=== PATIENT | female | born 1970 | race Caucasian/White ===

== ENCOUNTER 2016-12-29 07:56 | Emergency (ER) | payer MEDICAID ==
[~2016-12-29] VITALS: Ht 152.4 cm; Wt 54.4 kg
[~2016-12-29 07:56] MED LIST: ADVIL200 MG PO; AVPAK AZITHROM250 MG PO; BUSPAR 10MG TAB10 MG PO; ETODOLAC200 MG PO; HYDROCODONE-APA1 TA1 PO; HYDROCODONE/ACE1 TA5 PO; KEFLEX 500MG.500 MG PO; NAPROSYN 500MG500 MG PO; NEURONTIN100 MG OR; NOMEDS; PREDNISONE 20MG20 MG PO; ROBAXIN-750750 MG PO; TESSALON PERLE100 MG PO; TORADOL10 M2 PO; TYLENOL MIGRAINE OR; ULTRAM50 MG PO; VOLTAREN75 MG PO; ZITHROMAX Z-PA250 M1 PO; ZOFRAN ODT4 MG PO
[2016-12-29] MEDS ORDERED: INDERAL 20MG. T20 MG PO (08:06)
--- NOTE | 2016-12-29 08:09 | Emergency Room Report ---
History of Present Illness Time Seen by MD Peña Presenting Problem in Triage Pt arrived:Walked Presenting Problem:PT REPORTS R BACK PAIN IN POSTERIOR RIB AREA RADIATING TO R LOWER BACK AND RADIATING AROUND TO R ABD PAIN. PT REPORTS PAIN BEGAN YESTERDAY MORNING. DENIES ANY INJURY, DENIES URINARY SYMPTOMS. 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 N Clinical Suspician of Infection? N Mental Status: 1 - Regular (Normal Baseline) Sepsis Risk:Low Sepsis Risk Have you (or family members/close friends) recently traveled outside the [place]? N If Yes, where/when: Have you had exposure to infectious disease within the past month? N TB? Other? Specify: Patient states yesterday morning she started with bilateral flank pain to the nurse she stated it was worse on the RIGHT side to me she said it was worse on the LEFT side she states she has bilateral flank pain radiating around to the mid abdomen on each side. moderate in severity she states she has nausea associated with that she denies fevers or chills. She states is a new pain she denies any history of kidney stone. She is pacing at bedside during the interview she states she can't find a comfortable position. ALLERGIES Coded Allergies: No Known Allergies (05/21/16) Home Medications Reported Medications Gabapentin (Neurontin) 100 MG OR TID Buspirone Hcl (Buspar 10MG) 10 MG PO DAILY #60 Propranolol Hcl (Inderal 20MG. Tablet) 20 MG PO DAILY #30 History Medical History General CAD? No Angina: No [place]: No Hypertension? No Hyperlipidemia? No CHF? No DVT? No PE? No COPD? Yes Asthma? No Anemia? No GERD? No Gastric ulcers? No GI Bleed? No Hernia? No Thyroid Problems? No Hypothyroidism? No CVA? No Seizures? No Diabetes? No Renal Insuffiency? No End Stage Renal Disease? No UTI? No Stones? No BPH? No GB Disease: No Nephritic Syndrome? No Asplenia? No Hepatitis? No Sickle Cell Disease? No Arthritis? No Migraines? Yes Cataracts? No Glaucoma? No MRSA? No HIV? No TB? No Anxiety? No Depression? No Cancer? Yes Site: OVARIAN Immunization Hx DT/Tetanus 1-4 Years Ago Surgical Hx Previous Surgery?Y BRENDA [employer]IENT [employer]LER Hx LMP N/A Social History Smoking Hx Smoker: Current Every Day Smoker Tobacco: Yes Type Cigarettes Packs/day 1 1/2 - 2 Packs Alcohol Alcohol: No Review of Systems All Other Systems Reviewed and Negative Physical Exam Vital Signs Vital Signs Date Time Temp Pulse Resp B/P Pulse O2 O2 Flow FiO2 Ox Delivery Rate 12/29 1014 50 20 112/73 96 12/29 0908 20 12/29 0904 51 20 123/69 97 12/29 0825 20 12/29 0800 97.9 64 20 117/71 97 General Appearance: Nontoxic, pacing at bedside Head: Normocephalic, without obvious abnormality, atraumatic. Eyes: conjunctiva/corneas clear ENT: Mucous membranes moist. Neck: No jugular venous distention. Cardiac: regular rate and rhythm Lungs: Clear to auscultation bilaterally Abdomen: Nontender, denies abdominal tenderness complains of bilateral flank pain, grimacing during exam but states abdominal palpation does not make pain worse, no pulsatile mass, Nondistended, positive bowel sounds, no rebound : bilateral CVA tenderness Extremities: no edema Musculoskeletal: No chest wall tenderness Skin: No rashes or lesions to exposed skin. Neurologic: Alert. No gross focal deficits Psychiatric: Normal affect (Dominick CORBIN, Kendall) General Appearance normal appearance Respiratory Status No: respiratory distress. Cardiovascular normal exam Neurologic alert Medical Decision Making LABS/Meds/Orders Pt receiving controlled substance in ED? No Comment 902 repeat exam, pt with some pain relief complains now of left side flank pain more, has some diffuse abominal nondescript tenderness. no longer pacing. resting in bed, desires more pain medicine. 923 repeat exam, no pulsatile mass, still with some midline abominal tenderness now, pt asks why she was nontender on first exam. dw pt morphine. dw pt will evaluate aorta. 1036 radiology has called back, no dissection, he mentioned spleen but does not believe any acute pathology/infarct. radiologist came to ER, dw me CT, stated no acute findings, to have patient return if any continued pain. Results/Orders Laboratory Tests 12/29/16 1121: Ammonia Cancelled 12/29/16 1050: Urine Color YELLOW, Urine Appearance SL CLOUDY, Urine pH 5.5, Ur Specific [place] <= 1.005, Urine Protein NEGATIVE, Urine Ketones NEGATIVE, Urine Blood TRACE-LYSED, Urine Nitrate POSITIVE H, Urine Bilirubin NEGATIVE, Urine Urobilinogen 0.2, Ur Leukocyte Esterase NEGATIVE, Urine RBC OCC, Urine WBC OCC, Ur Squamous Epith Cells OCC, Urine Bacteria 2+, Urine Glucose NEGATIVE 12/29/16 1005: Urine Color YELLOW, Urine Appearance Sl Cloudy, Urine pH 6.0, Ur Specific [place] <= 1.005, Urine Protein NEGATIVE, Urine Ketones NEGATIVE, Urine Blood TRACE-INTACT, Urine Nitrate POSITIVE H, Urine Bilirubin NEGATIVE, Urine Urobilinogen 0.2, Ur Leukocyte Esterase NEGATIVE, Urine RBC OCC, Urine WBC 5-10, Ur Squamous Epith Cells 20-50, Urine Bacteria 4+, Urine Glucose NEGATIVE 12/29/16 0815: Sodium 139, Potassium 3.8, Chloride 104, Carbon Dioxide 28, BUN 8, Creatinine 0.9, Estimated Creat Clear 68, Estimated GFR (MDRD) 68, Glucose 95, Calcium 9.3, Total Bilirubin 0.4, AST 9 L, ALT 17, Alkaline Phosphatase 116, Total Protein 7.5, Albumin 3.9, Globulin 3.6 H, Albumin/Globulin Ratio 1.1, Lipase 117, WBC 9.0, RBC 4.43, Hgb 13.2, Hct 41.3, MCV 93.4, RDW 13.9, Plt Count 190, Gran % 68.4, Gran # 6.1, Lymphocytes % 23.0, Monocytes % 6, Eosinophils % 2.1, Basophils % 0.4, Lymphocytes # 2.0, Monocytes # 0.5, Eosinophils # 0.2, Basophils # 0.0, PUBS MCHC 32.0, MCH 29.9 Current Medication Orders Sig/Yayo Start time Last Medication Dose Route Stop Time Status Admin Iopamidol 100 ML ONCE ONE 12/29 1000 DC 12/29 IV 12/29 1001 1000 Sodium Chloride 10 ML PRN PRN 12/29 1000 DC 12/29 IV 12/29 1129 1000 Sodium Chloride 20 ML ONCE ONE 12/29 1000 DC 12/29 IV 12/29 1001 1000 Sodium Chloride 20 ML ONCE ONE 12/29 1000 DC 12/29 IV 12/29 1001 1000 Morphine Sulfate 0 .STK-MED ONE 12/29 0908 DC .ROUTE Morphine Sulfate 4 MG ONCE ONE 12/29 0900 DC 12/29 IV 12/29 0901 0908 Ondansetron HCl 4 MG ONCE ONE 12/29 829 DC 12/29 IV 12/29 0831 0825 Sodium Chloride 10 ML PRN PRN 12/29 829 AC IV 12/30 0816 Morphine Sulfate 0 .STK-MED ONE 12/30 823 DC .ROUTE Ondansetron HCl 0 .STK-MED ONE 12/30 823 DC .ROUTE Sodium Chloride 1,000 ML .STK-MED ONE 12/30 823 DC IV Morphine Sulfate 4 MG ONCE ONE 12/29 814 DC 12/29 IV 12/29 0816 0825 Ondansetron HCl 4 MG 12/29 814 CAN IV Sodium Chloride 1,000 ML .Q1H1M 12/29 814 DC 12/29 IV 12/29 0915 0825 Sodium Chloride 10 ML PRN PRN 12/29 0815 AC IV 12/30 0811 Orders Procedure Date/time Status DIET-NOTHING BY MOUTH 12/29 L Active CULTURE, URINE 12/29 1050 Active GEN NSG/PT REQ (NOT FOR MEDS!) 12/29 1036 Active URINALYSIS/COMPLETE 12/29 1036 Complete CULTURE, URINE 12/[address] ABD/PELVIS REQ 12/29 0923 Complete IV SALINE LOCK 12/[address] ABD/PELVIS REQ 12/29 0812 Complete URINALYSIS/COMPLETE 12/29 08 Complete LIPASE 12/29 08 Complete CBC WITH AUTO DIFF 12/30 811 Complete CHEM 12 PROFILE 12/29 08 Complete XRAY/CT/US XRAY/CT/US XRAY chest XR interpretation by reviewed by me Xray Results normal/NAD, no infiltrates Departure Departure Time of Disposition 1134 Disposition DC Home or Self Care(routine) Clinical Impression Primary Impression: Flank pain Secondary Impressions: Abdominal pain Qualifiers: Abdominal location: unspecified location Qualified Code: R10.9 - Unspecified abdominal pain UTI (urinary tract infection) Qualifiers: Urinary tract infection type: acute cystitis Hematuria presence: without hematuria Qualified Code: N30.00 - Acute cystitis without hematuria Condition STABLE Referrals Steven Seth MD (Family) Patient Instructions DI for Abdominal Pain-Adult, DI for Urinary Tract Infection (UTI) Additional Instructions return to ER if abominal pain returns or any problems. call your doctor for recheck Discharge Counseling Counseled pt/family regarding diagnosis, test results, medications/RX, home care, follow up needs Prescriptions Current Visit Scripts Levofloxacin (Levaquin 500MG) 500 MG PO DAILY #10 TAB IBUPROFEN (Motrin 600MG) 600 MG PO QIDP PRN BREAKTHROUGH MOD TO SEV PAIN #10 TAB Phenazopyridine HCl (Pyridium) 100 MG PO TIDP PRN BREAKTHROUGH MILD PAIN #10 TAB ED Critical Care Critical Care No at 1140
[2016-12-29 08:29] LABS: HEMOGLOBIN 13.2 g/dL (12.2-16.2)
--- NOTE | 2016-12-29 09:09 | RADIOLOGY REPORT PS360 ---
CT ABD PELVIS W/O CONTRAST HISTORY: Back pain/ FLANK PAIN sagittal and coronal reconstructions on CT workstation bilateral flank pain 1 day Patient Age: 46 years: Female Ordering Physician: Kendall Tan MD TECHNIQUE: Helical CT scanning performed the abdomen pelvis with no oral nor IV contrast utilized COMPARISON :No prior relevant CT studies. Only plain films abdomen May 2015 FINDINGS Lung bases. No acute findings. Benign 6 mm Calcified granuloma right lung base Linear scarring is seen at both lung bases most evident anteriorly on right.> Left Heart normal size Abdomen pelvis. Lack of oral and IV contrast decreases sensitivity. Liver:. Unremarkable No focal lesions. No biliary dilatation. Gallbladder:. No discrete calcified stones question scant sludge. Pancreas:. Unremarkable Limited noncontrast images the pancreas..\ Spleen.: Normal size. Minimal granulomatous calcifications Adrenals unremarkable. Kidneys colon no urinary tract calculi nor obstruction. Ureters appear normal in course and caliber.. Pelvis:. Urinary bladder unremarkable . Hysterectomy. . Postsurgical changes evidentNo adnexal masses Scattered phleboliths throughout the pelvic basin. GI tract. Increased fluid throughout small bowel with scattered small moderate air-fluid levels within borderline dilated small bowel loops. Question ileus versus early enteritis. Upper normal wall thickness at proximal small bowel also noted. Terminal ileum with no wall thickening no inflammation but again generous fluid in small bowel seen leading towards terminal ileum.. Large bowel. Moderate solid stool throughout colon... No evidence of appendicitis appendix appears normal well visualized. Osseous no remarkable findings. Only perhaps minimal facet arthropathy L 5/S1, L4/5 Aorta shows only some scant dilatation from the 16 mm the immediate infrarenal area up to 20 mm just above the bifurcation IMPRESSION: 1. Regarding flank pain.: No urinary tract calculi nor obstruction. No definitive acute findings abdomen pelvis. Appendix normal 2. Note generous fluid throughout generous caliber small bowel, with mild/moderate air-fluid levels throughout,. Also upper normal wall thickness proximal small bowel.. Nonspecific findings, but Could reflect early developing Enteritis or Mild Ileus... Correlation required Incidental observations: 3. Minor dilatation of lower abdominal aorta up to 20 mm diameter. .
[2016-12-29 10:14] LABS: URINE BILIRUBIN - DIPSTICK NEGATIVE (NEG); URINE BLOOD TRACE-INTACT (NEG)
[2016-12-29 10:20] LABS: URINE SQUAMOUS CELLS 20-50 #/hpf (0-5)
[2016-12-29 11:10] LABS: URINE BILIRUBIN - DIPSTICK NEGATIVE (NEG); URINE BLOOD TRACE-LYSED (NEG)
--- NOTE | 2016-12-29 11:15 | RADIOLOGY REPORT PS360 ---
CTA ABD/PELVIS HISTORY: BACK PAIN WITH ABD TENDERNESS Patient Age: 46 years: Female Ordering Physician: Kendall Tan MD TECHNIQUE: Helical CT scanning performed the abdomen pelvis follicles menstruation wire cc [id number] followed x 40 mL normal saline. CTA technique and processing including 3-D volume rendering image performed on radiologist workstation COMPARISON :CT abdomen without contrast from today FINDINGS The time of the study was designed to evaluate the aorta and its branch vessels. Imaging performed just after bolus administration of IV contrast. There is no evidence of dissection. There is moderate atheromatous plaque only slightly narrowing the diameter of the lower abdominal aorta continues through the common iliac origins. No flow-limiting stenosis. On the aorta is normal caliber immediately beneath the renal arteries 14 mm and dilates up to 17 mm lumen, less than 19 mm mm outer diameter just below this. The renal arteries well visualized and widely patent and unremarkable. Celiac artery widely patent as are its branches. Spinal arteries can be visualized in satisfactory. . There is early enhancement of the kidneys bilaterally with no focal abnormalities evident. The low-density area in the spleen most likely reflects the early enhancement as can occur with delayed sinusoids in with early arterial enhancement is utilized for. We can follow the Artery and venous branch vessels seen coursing through area with no no displacement. The filling of the arterial vessels which against splenic infarct as does the configuration of this area. Otherwise only note curious observation there is is slight subtle hazy appearance in the retrocrural fat here at the lower most thorax (axial slice 22-17) however the azygos vein appears satisfactory coursing through this area and I see no significant adenopathy or other findings here. Distal esophagus is unremarkable with normal fat surrounding this structure. The disc spaces appear intact adjacent to this area with no evidence of adjacent discitis inflammatory process with normal white count. However If patient has a persistent symptoms on this may warrant follow-up. Doubt but cannot poorly exclude very early inflammatory process-unlikely. Most likely this baseline for this patient. Also early lymphoproliferative disease can rarely present as merely hazy fat. No enlarged nodes to raise concern regarding this entity otherwise seen. I suspect more current clinically significant is the liquid stool evident liquid stool at the right and transverse colon. The previous generous fluid at the distal small bowel has migrated into the right colon. There is still solid stool at the left colon but I would not be surprised if the patient developed with stool subsequent. Only question some scant fluid at the right cul-de-sac on final review . findings were reviewed with the ER physician. Understand the patient's pain has improved. However if it should increase follow-up CT with arterial and venous phase and possibly delayed imaging may be warranted IMPRESSION ------- No prominent findings. Minor observations 1. Aorta. Minor chronic observations no prominent nor acute findings. [id number] atheromatous plaque throughout the lower abdominal aorta into common iliac arteries. No significant stenosis. Barely appreciable scant dilatation or bowel aorta up to 18 mm diameter 2. Generous liquid stool at right & transverse colon now evident. Would not be surprised and suspect that patient may develops diarrhea within near future.. This Suspect developing enteritis.. 3.Subtle hazy appearance retrocrural fat at lower thorax...Nonspecific & doubtful acute significance but if pain should progress consider follow-up CT postcontrast triphasic 4. Question tiny fluid at cul-de-sac. Equivocal. 5.. Early arterial enhancement accounts for the inhomogeneous appearance at spleen
[2016-12-29 11:32] LABS: URINE SQUAMOUS CELLS OCC #/hpf (0-5)
--- NOTE | 2016-12-29 11:35 | RADIOLOGY REPORT PS360 ---
CHEST(2 VIEWS-NOT PORTABLE) INDICATION: Flank pain COMPARISON: None FINDINGS: The lung curtis are well expanded and appear clear of infiltrate. The cardiomediastinal silhouette and vascularity are normal. The costophrenic angles are clear. There are tiny calcified right hilar nodes and is a calcified granuloma right perihilar region. The bony thorax is normal. IMPRESSION: Normal chest except for evidence of old granulomatous disease
[2016-12-29] MEDS ORDERED: MOTRIN 600MG.600 MG PO (11:37)
[2016-12-29] MEDS ORDERED: LEVAQUIN500 MG PO (11:37)
[2016-12-29] MEDS ORDERED: PYRIDIUM100 M2 PO (11:39)
[2016-12-29 11:48] VITALS: BP 105/59
--- OUTSIDE RECORDS SUMMARY | 2017-01-06 13:15 | External Medical Summary Rpt | CCD ---
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 9. 30 JA 56 MU Ac MA 71 -0 -2 00 CK 92 RA ti TR 40 8- 7- 0 SO 23 D ve IP 53 20 20 N UM TA 31 11 11 AP AR N 1 OT M ADAIR HE CC CA RY 10 # 0 MG 00 7 TA BL ET 00 07 07 28 14 RI 89 MU Ac 60 -2 -2 .0 TE 16 RA ti 33 2- 2- 00 40 D ve 88 20 20 AI 42 11 11 D MA 1 PH H AR MA CY 03 21 6 # 03 21 SD 10 07 07 0 30 5 JA 56 MU Ac OC 63 -0 -0 .0 CK 92 RA ti TO 10 8- 8- 00 SO 29 D ve SO 40 20 20 N UM L- 70 11 11 AP AR HC 1 OT M HE 2. CA 5% RY # CR EA 00 M 7 TR 65 06 06 0 [address] Ac AM 16 -2 -2 .0 WV 80 UA ti AD 20 1- 1- 00 LY 31 RT ve OL 62 20 20 5 71 11 11 PH GI HC 1 AR LL L MA IA 50 CY N MG OF TA JA BL CK ET SO N ADAIR 62 06 06 3 9. 30 FA 67 MU Ac MA 75 -1 -1 00 WV 83 RA ti TR 60 4- 4- 0 LY 80 D ve IP 52 20 20 6 TA 26 11 11 PH MA N 9 AR H ADAIR MA CC CY 10 OF 0 MG JA CK TA SO BL N ET 00 06 06 0 [address] Ac 59 -0 -0 .0 CK 72 UA ti 10 6- 6- 00 SO 38 RT ve 54 20 20 N 00 11 11 AP GI 5 OT LL HE IA CA N RY # 00 7 LI 17 06 06 1 [address] Ac DO 47 -0 -0 .0 CK 72 UA ti CA 80 6- 6- 00 SO 39 RT ve IN 71 20 20 N E 13 11 11 AP GI HC 0 OT LL L HE IA 2% CA N RY JE # LL Y 00 7 00 05 05 0 [address] Ac 59 -1 -1 .0 CK 58 UA ti 10 3- 3- 00 SO 40 RT ve 54 20 20 N 00 11 11 AP GI 5 OT LL HE IA CA N RY # 00 7 AM 00 05 05 3 30 30 FA 67 MU Ac IT 60 -1 -1 .0 WV 77 RA ti RI 32 2- 2- 00 LY 28 D ve PT 21 20 20 6 YL 43 11 11 PH MA IN 2 AR H E MA HC CY L 50 OF MG JA CK TA SO B N ADAIR 55 05 05 3 9. 30 FA 67 MU Ac MA 11 -1 -1 00 WV 77 RA ti TR 10 2- 2- 0 LY 28 D ve IP 29 20 20 7 TA 30 11 11 PH MA N 9 AR H ADAIR MA CC CY 10 OF 0 MG JA CK TA SO BL N ET NA 68 05 05 3 60 30 FA 67 MU Ac SD 46 -1 -1 .0 WV 77 RA ti OX 20 2- 2- 00 LY 28 D ve EN 19 20 20 9 00 11 11 PH MA 50 5 AR H 0 MA MG CY TA OF BL ET JA CK SO N NA 00 05 05 3 17 30 FA 67 MU Ac SO 08 -1 -1 .0 WV 77 RA ti NE 51 2- 2- 00 LY 29 D ve X 28 20 20 2 50 80 11 11 PH MA 1 AR H MC MA G CY NA SA OF L SP JA RA CK Y SO N LO 45 05 05 3 30 30 FA 67 MU Ac RA 80 -1 -1 .0 WV 77 RA ti TA 20 2- 2- 00 LY 29 D ve DI 65 20 20 8 NE 08 11 11 PH MA 7 AR H 10 MA CY MG OF TA BL JA ET CK SO N TI 55 04 04 3 60 30 FA 67 MU Ac ZA 11 -1 -2 .0 WV 71 RA ti NI 10 5- 0- 00 LY 29 D ve DI 17 20 20 9 NE 91 11 11 PH MA 5 AR H HC MA L CY 2 MG OF TA JA BL CK ET SO N PO 51 04 04 0 52 30 FA 67 MU Ac LY 99 -1 -1 7. WV 71 RA ti ET 10 5- 5- 00 LY 30 D ve HY 45 20 20 0 1 LE 75 11 11 PH MA NE 7 AR H MA GL CY YC OL OF 33 JA 50 CK SO PO N WD SD 10 04 04 0 28 10 FA 67 MU Ac OC 63 -1 -1 .3 WV 71 RA ti TO 10 5- 5- 50 LY 30 D ve SO 40 20 20 2 L- 70 11 11 PH MA HC 1 AR H MA 2. CY 5% OF CR EA JA M CK SO N AM 00 03 03 3 30 30 RI 87 MU Ac IT 60 -2 -2 .0 TE 80 RA ti RI 32 0- 0- 00 06 D ve PT 21 20 20 AI YL 42 11 11 D MA IN 1 PH H E AR HC MA L CY 50 03 MG 21 6 TA # B 03 21 NA 00 03 03 3 60 30 RI 87 MU Ac SD 09 -2 -2 .0 TE 80 RA ti OX 30 0- 0- 00 09 D ve EN 14 20 20 AI 90 11 11 D MA 50 1 PH H 0 AR MG MA CY TA BL 03 ET 21 6 # 03 21 TI 55 03 03 3 60 30 RI 87 MU Ac ZA 11 -2 -2 .0 TE 80 RA ti NI 10 0- 0- 00 11 D ve DI 17 20 20 AI NE 91 11 11 D MA 5 PH H HC AR L MA 2 CY MG 03 TA 21 BL 6 ET # 03 21 00 03 03 3 9. 30 RI 87 MU Ac 09 -2 -2 00 TE 80 RA ti 30 0- 0- 0 12 D ve 22 20 20 AI 49 11 11 D MA 0 PH H AR MA CY 03 21 6 # 03 21 ADAIR 55 02 02 0 9. 30 JA 55 MU Ac MA 11 -1 -1 00 CK 91 RA ti TR 10 1- 1- 0 SO 08 D ve IP 29 20 20 N UM TA 30 11 11 AP AR N 9 OT M ADAIR HE CC CA RY 10 # 0 MG 00 7 TA BL ET AM 00 02 02 0 30 30 JA 55 MU Ac IT 37 -1 -1 .0 CK 91 RA ti RI 82 1- 1- 00 SO 09 D ve PT 65 20 20 N UM YL 01 11 11 AP AR IN 0 OT M E HE HC CA L RY 50 # MG 00 7 TA B AM 00 01 01 0 30 30 JA 55 MU Ac IT 37 -1 -1 .0 CK 69 RA ti RI 82 4- 4- 00 SO 41 D ve PT 65 20 20 N UM YL 01 11 11 AP AR IN 0 OT M E HE HC CA L RY 50 # MG 00 7 TA B 00 01 01 0 9. 30 JA 55 MU Ac 09 -1 -1 00 CK 69 RA ti 30 4- 4- 0 SO 42 D ve 22 20 20 N UM 49 11 11 AP AR 0 OT M HE CA RY # 00 7 AM 00 11 11 0 30 30 FA 67 MU Ac IT 78 -2 -2 .0 WV 37 RA ti RI 11 3- 3- 00 LY 75 D ve PT 48 20 20 1 UM YL 81 10 10 PH AR IN 0 AR M E MA HC CY L 50 OF MG JA CK TA SO B N ADAIR 55 11 11 0 9. 30 FA 67 MU Ac MA 11 -2 -2 00 WV 37 RA ti TR 10 3- 3- 0 LY 76 D ve IP 29 20 20 7 UM TA 30 10 10 PH AR N 9 AR M ADAIR MA CC CY 10 OF 0 MG JA CK TA SO BL N ET AM 00 10 10 0 30 30 FA 67 MU Ac IT 60 -0 -0 .0 WV 25 RA ti RI 32 1- 1- 00 LY 20 D ve PT 21 20 20 3 UM YL 33 10 10 PH AR IN 2 AR M E MA HC CY L 25 OF MG JA CK TA SO B N ADAIR 55 10 10 0 9. 30 FA 67 MU Ac MA 11 -0 -0 00 WV 25 RA ti TR 10 1- 1- 0 LY 20 D ve IP 29 20 20 4 UM TA 30 10 10 PH AR N 9 AR M ADAIR MA CC CY 10 OF 0 MG JA CK TA SO BL N ET NA 68 09 09 0 60 30 FA 67 MU Ac SD 46 -0 -0 .0 WV 19 RA ti OX 20 7- 7- 00 LY 40 D ve EN 19 20 20 8 UM 00 10 10 PH AR 50 5 AR M 0 MA MG CY TA OF BL ET JA CK SO N AM 00 08 08 0 30 30 FA 67 MU Ac IT 60 -0 -0 .0 WV 12 RA ti RI 32 9- 9- 00 LY 91 D ve PT 21 20 20 7 UM YL 33 10 10 PH AR IN 2 AR M E MA HC CY L 25 OF MG JA CK TA SO B N AM 00 06 07 2 30 30 FA 67 MU Ac IT 60 -2 -1 .0 WV 05 RA ti RI 32 9- 3- 00 LY 02 D ve PT 21 20 20 2 UM YL 33 10 10 PH AR IN 2 AR M E MA HC CY L 25 OF MG JA CK TA SO B N TI 55 07 07 0 90 30 FA 67 MU Ac ZA 11 -1 -1 .0 WV 07 RA ti NI 10 3- 3- 00 LY 62 D ve DI 18 20 20 9 NE 01 10 10 PH MA 5 AR H HC MA L CY 4 MG OF TA JA BL CK ET SO N SD 00 06 06 0 15 5 FA 67 MU Ac OM 59 -1 -1 .0 WV 02 RA ti ET 15 5- 5- 00 LY 57 D ve W[place]INS 30 20 20 1 UM ZI 71 10 10 PH AR NE 0 AR M MA 25 CY MG OF TA JA BL CK ET SO N 65 06 06 0 10 3 FA 67 NANCY Ac 16 -0 -0 .0 WV 01 HN ti 20 9- 9- 00 LY 43 SO ve 52 20 20 8 N 01 10 10 PH EU 0 AR NI MA CE CY L OF JA CK SO N NI 00 06 06 0 28 7 FA 67 NANCY Ac TR 09 -0 -0 .0 WV 01 HN ti OF 32 9- 9- 00 LY 43 SO ve UR 13 20 20 9 N AN 10 10 10 PH EU TO 1 AR NI IN MA CE CY L MC R OF 10 0 JA MG CK SO CA N P AM 00 06 06 0 30 30 JA 54 MU Ac IT 78 -0 -0 .0 CK 20 RA ti RI 11 1- 8- 00 SO 57 D ve PT 48 20 20 N UM YL 71 10 10 AP AR IN 0 OT M E HE HC CA L RY 25 # MG 00 7 TA B AM 00 05 05 0 30 30 FA 66 MU Ac IT 60 -1 -1 .0 WV 95 RA ti RI 32 1- 1- 00 LY 24 D ve PT 21 20 20 1 UM YL 33 10 10 PH AR IN 2 AR M E MA HC CY L 25 OF MG JA CK TA SO B N 00 04 04 30 15 RI 84 MU Ac 40 -2 -2 .0 TE 45 RA ti 60 6- 6- 00 58 D ve 35 20 20 AI UM 90 10 10 D AR 1 PH M AR MA CY 03 21 6 # 03 21 HY 53 04 04 8. 2 RI [address] 74 -2 -2 00 TE 44 WV ti OC 60 4- 5- 0 30 LT ve OD 14 20 20 AI ON ON 50 10 10 D E- 1 PH RO IB AR NA UP MA LD RO CY D FE N 03 7. 21 5- 6 20 # 0 03 21 00 04 04 0 10 4 FA 41 NANCY Ac 60 -2 -2 .0 WV 57 HN ti 33 1- 1- 00 LY 24 SO ve 88 20 20 9 N 22 10 10 PH AA 8 AR RO MA N CY W OF JA CK SO N CY 59 04 04 0 30 10 FA 66 NANCY Ac CL 74 -2 -2 .0 WV 90 HN ti OB 60 1- 1- 00 LY 67 SO ve EN 17 20 20 0 N ZA 71 10 10 PH AA SD 0 AR RO IN MA N E CY W 10 OF MG JA TA CK BL SO ET N 00 04 04 0 10 3 FA 41 NANCY Ac 60 -1 -1 .0 WV 56 HN ti 33 5- 5- 00 LY 88 SO ve 88 20 20 7 N 22 10 10 PH AA 8 AR RO MA N CY W OF JA CK SO N 00 04 04 10 3 RI 84 NANCY Ac 40 -1 -1 .0 TE 30 HN ti 60 2- 2- 00 79 SO ve 35 20 20 AI N 70 10 10 D AA 5 PH RO AR N MA W CY 03 21 6 # 03 21 CY 00 04 04 30 10 RI 84 NANCY Ac CL 37 -1 -1 .0 TE 30 HN ti OB 80 2- 2- 00 80 SO ve EN 75 20 20 AI N ZA 11 10 10 D AA SD 0 PH RO IN AR N E MA W 10 CY MG 03 21 TA 6 BL # ET 03 21 NA 00 04 04 30 15 RI 84 NANCY Ac SD 09 -1 -1 .0 TE 30 HN ti OX 30 2- 2- 00 82 SO ve EN 14 20 20 AI N 90 10 10 D AA 50 1 PH RO 0 AR N MG MA W CY TA BL 03 ET 21 6 # 03 21 00 03 03 12 4 RI 84 LE Ac 40 -2 -2 .0 TE 16 E ti 60 9 33 GR ve 35 20 20 AI EG 70 10 10 D OR 5 PH Y AR J MA CY 03 21 6 # 03 21 CY 00 03 03 12 4 RI 84 LE Ac CL 37 -2 -2 .0 TE 16 E ti OB 80 9 34 GR ve EN 75 20 20 AI EG ZA 11 10 10 D OR SD 0 PH Y IN AR J E MA 10 CY MG 03 21 TA 6 BL # ET 03 21 SD 00 03 03 15 5 RI 84 LE Ac ED 60 -2 -2 .0 TE 16 E ti NI 35 35 GR ve SO 33 20 20 AI EG NE 82 10 10 D OR 1 PH Y 10 AR J MA MG CY TA 03 BL 21 ET 6 # 03 21 EN 60 02 02 00 15 4 FA 20 LE Ac DO 95 -1 -2 .0 WV 18 E ti CE 10 6 LY 01 GR ve T 60 20 20 6 EG 5- 28 10 10 PH OR 32 5 AR Y 5 MA J TA CY BL ET OF JA CK SO N IB 55 02 02 00 20 10 TH 60 ME Ac UP 11 -0 -1 .0 E 48 RC ti RO [address] 2 [address] 12 ED ve FE 68 20 20 AZ 2 N 30 10 10 A PA 60 5 PH BL 0 AR O MG MA CY TA BL PL ET LC DI 16 03 28 99 30 15 TH 60 ME Ac CL 57 -1 -2 .0 E 47 RC ti OF 10 PL 47 ED ve EN 20 20 20 AZ 2 AC 11 10 10 A PA 1 PH BL SO AR O D MA EC CY 75 PL LC MG TA B SI 68 01 30 30 TH 60 ME Ac MV 18 -2 -2 .0 E 47 RC ti [address] 59 ED ve TA 47 20 20 AZ 8 TI 90 10 10 A PA N 3 PH BL 20 AR O MA MG CY TA PL BL LC ET AL 00 01 01 00 30 30 TH 40 ME Ac SD 78 -1 -2 .0 E 07 RC ti AZ 11 9- 8 PL 73 ED ve OL 07 20 20 AZ 1 AM 71 10 10 A PA 0 PH BL 0. AR O 5 MA MG CY TA PL BL LC ET DO 00 07 07 00 20 10 HO 61 NANCY Ac XY 14 -2 -3 .0 ME 01 HN ti CY 33 2- 0- 00 TO 21 SO ve CL 14 20 20 WN 0 N IN 25 09 09 AA E 0 PH RO HY AR N CL MA W AT CY E 10 OF 0 JA MG CK SO CA N P ME 59 07 07 00 21 6 TH 60 ME Ac TH 74 -0 -1 .0 E 40 RC ti YL 60 9- 6- 00 PL 50 ED ve SD 00 20 20 AZ 3 ED 10 09 09 A PA NI 3 PH BL SO AR O LO MA NE CY 4 PL MG LC DO SE PK 00 06 07 00 30 30 JA 51 GH Ac 09 -1 -0 .0 CK 77 OS ti 35 5- 2- 00 SO 09 H ve 28 20 20 N ADAIR 30 09 09 AP BI 1 OT R HE CA RY DI 00 06 06 00 60 30 JA 51 GH Ac AZ 59 -1 -1 .0 CK 74 OS ti EP 15 1- 8- 00 SO 59 H ve AM 61 20 20 N ADAIR 5 91 09 09 AP BI 0 OT R MG HE CA TA RY BL ET DO 00 06 06 00 30 30 JA 51 GH Ac XE 37 -1 -1 .0 CK 74 OS ti PI 84 1- 8- 00 SO 60 H ve N 25 20 20 N ADAIR 50 01 09 09 AP BI 0 OT R MG HE CA CA RY PS UL E ADAIR 53 05 06 00 20 10 JA 51 LE Ac LF 48 -2 -0 .0 CK 63 E ti AM 90 2- 4- 00 SO 04 GR ve ET 14 20 20 N EG HO 60 09 09 AP OR XA 5 OT Y ZO HE J LE CA -T RY MP DS TA BL ET 00 05 05 00 60 30 JA 51 GH Ac 55 -1 -2 .0 CK 55 OS ti 50 1- 1- 00 SO 74 H ve 36 20 20 N ADAIR 30 09 09 AP BI 5 OT R HE CA RY FL 00 05 05 00 30 30 JA 51 GH Ac UO 78 -1 -2 .0 CK 55 OS ti XE 12 1- 1- 00 SO 75 H ve TI 82 20 20 N ADAIR NE 40 09 09 AP BI 1 OT R HC HE L CA 40 RY MG CA PS UL E MU 63 04 04 00 30 15 JA 51 GH Ac CI 82 -0 -2 .0 CK 31 OS ti NE 40 6- 3- 00 SO 94 H ve X 05 20 20 N ADAIR D 73 09 09 AP BI ER 6 OT R HE 60 CA 0- RY 60 MG TA BL ET ADAIR 53 04 04 00 20 10 JA 51 GH Ac LF 48 -1 -2 .0 CK 35 OS ti AM 90 0- 3- 00 SO 24 H ve ET 14 20 20 N ADAIR HO 60 09 09 AP BI XA 5 OT R ZO HE LE CA -T RY MP DS TA BL ET 00 04 04 00 60 30 JA 51 GH Ac 55 -1 -2 .0 CK 35 OS ti 50 0- 3- 00 SO 22 H ve 36 20 20 N ADAIR 30 09 09 AP BI 5 OT R HE CA RY SM 49 04 04 00 30 2 JA 51 GH Ac 34 -0 -2 00 CK 31 OS ti PE 80 6- 3- .0 SO 91 H ve DI 57 20 20 00 N ADAIR AT 14 09 09 AP BI RI 1 OT R C HE EL CA EC RY TR OL YT E SO LN SD 10 04 04 00 20 5 JA 51 GH Ac OM 70 -0 -2 .0 CK 31 OS ti ET 20 6- 3- 00 SO 93 H ve [place] 00 20 20 N ADAIR ZI 31 09 09 AP BI NE 0 OT R HE 25 CA RY MG TA BL ET LO 00 04 04 00 20 3 JA 51 GH Ac PE 37 -0 -2 .0 CK 31 OS ti RA 82 6- 3- 00 SO 92 H ve WV 10 20 20 N ADAIR DE 00 09 09 AP BI 2 1 OT R HE MG CA RY CA PS UL E SM 49 04 04 00 30 10 JA 51 GH Ac 34 -0 -2 .0 CK 31 OS ti NA 80 6- 3- 00 SO 95 H ve SA 02 20 20 N ADAIR L 82 09 09 AP BI SP 7 OT R RA HE Y CA 0. RY 05 % 00 03 03 00 60 30 JA 51 GH Ac 55 -1 -2 .0 CK 14 OS ti 50 1- 6- 00 SO 16 H ve 36 20 20 N ADAIR 30 09 09 AP BI 5 OT R HE CA RY 00 02 02 00 60 30 JA 50 GH Ac 59 -1 -2 .0 CK 94 OS ti 10 0- 6- 00 SO 83 H ve 50 20 20 N ADAIR 20 09 09 AP BI 5 OT R HE CA RY 00 02 02 00 60 30 JA 50 GH Ac 55 -1 -2 .0 CK 94 OS ti 50 0- 6- 00 SO 84 H ve 36 20 20 N ADAIR 30 09 09 AP BI 5 OT R HE CA RY DI 00 01 01 00 60 30 FA 41 GH Ac AZ 60 -0 -1 .0 WV 29 OS ti EP 33 5- 5- 00 LY 10 H ve AM 21 20 20 1 ADAIR 5 42 09 09 PH BI 8 AR R MG MA CY TA BL OF ET JA CK SO N AM 00 12 12 00 14 7 FA 65 GH Ac OX 09 -0 -1 .0 WV 78 OS ti IC 32 5- 8- 00 LY 25 H ve IL 26 20 20 5 ADAIR LI 40 08 08 PH BI N 1 AR R 87 MA 5 CY MG OF TA BL JA ET CK SO N 49 12 12 00 30 30 FA 65 GH Ac 88 -0 -1 .0 WV 78 OS ti 40 5- 8- 00 LY 25 H ve 21 20 20 3 ADAIR 80 08 08 PH BI 1 AR R MA CY OF JA CK SO N DI 00 12 12 00 60 30 FA 41 GH Ac AZ 60 -0 -1 .0 WV 27 OS ti EP 33 5- 8- 00 LY 42 H ve AM 21 20 20 0 ADAIR 5 42 08 08 PH BI 8 AR R MG MA CY TA BL OF ET JA CK SO N 49 11 11 00 30 30 FA 65 GH Ac 88 -0 -2 .0 WV 70 OS ti 40 5- 0- 00 LY 96 H ve 21 20 20 9 ADAIR 90 08 08 PH BI 1 AR R MA CY OF JA CK SO N DI 00 11 11 00 60 30 FA 41 GH Ac AZ 60 -0 -2 .0 WV 25 OS ti EP 33 5- 0- 00 LY 52 H ve AM 21 20 20 6 ADAIR 5 42 08 08 PH BI 8 AR R MG MA CY TA BL OF ET JA CK SO N PE 00 11 11 00 60 1 FA 65 GH Ac RM 47 -1 -2 .0 WV 71 OS ti ET 25 0- 0- 00 LY 87 H ve HR 24 20 20 9 ADAIR IN 26 08 08 PH BI 9 AR R 1% MA CY LO TI OF ON JA CK SO N ES 00 11 11 00 4. 28 FA 65 NANCY Ac TR 37 -0 -2 00 WV 71 HN ti AD 83 6- 0- 0 LY 28 SO ve IO 35 20 20 5 N L 29 08 08 PH EU TD 9 AR NI S MA CE 0. CY L 1 MG OF /D AY JA CK SO N 49 10 10 00 30 30 FA 65 No Ac 88 -0 -2 .0 WV 63 t ti 40 6- 3- 00 LY 87 Av ve 21 20 20 2 ai 80 08 08 PH la 1 AR bl MA e CY OF JA CK SO N CL 00 10 10 00 60 30 FA 41 No Ac ON 37 -0 -2 .0 WV 23 t ti AZ 81 6- 3- 00 LY 78 Av ve EP 91 20 20 0 ai AM 01 08 08 PH la 0 AR bl 0. MA e 5 CY MG OF TA BL JA ET CK SO N 63 09 09 00 30 15 FA 65 No Ac 82 -1 -2 .0 WV 59 t ti 40 7- 6- 00 LY 63 Av ve 05 20 20 7 ai 64 08 08 PH la 0 AR bl MA e CY OF JA CK SO N DO 00 09 09 00 30 30 RI 78 GH Ac XE 37 -1 -2 .0 TE 23 OS ti PI 81 7- 6- 00 89 H ve N 04 20 20 AI ADAIR 10 90 08 08 D BI 1 PH R MG AR M CA #3 PS 21 UL 6 E 63 09 09 00 30 10 FA 65 No Ac 86 -1 -2 .0 WV 59 t ti 80 7- 6- 00 LY 63 Av ve 05 20 20 8 ai 63 08 08 PH la 0 AR bl MA e CY OF JA CK SO N 00 09 09 00 60 30 FA 65 No Ac 04 -1 -2 .0 WV 59 t ti 50 7- 6- 00 LY 63 Av ve 64 20 20 6 ai 16 08 08 PH la 5 AR bl MA e CY OF JA CK SO N CL 00 08 08 00 60 30 FA 41 No Ac ON 37 -1 -2 .0 WV 20 t ti AZ 81 8- 8- 00 LY 81 Av ve EP 91 20 20 1 ai AM 21 08 08 PH la 1 0 AR bl MA e MG CY TA OF BL ET JA CK SO N CL 00 07 08 00 60 30 FA 41 No Ac ON 37 -1 -0 .0 WV 19 t ti AZ 81 6- 1- 00 LY 04 Av ve EP 91 20 20 7 ai AM 21 08 08 PH la 1 0 AR bl MA e MG CY TA OF BL ET JA CK SO N SD 00 07 08 00 30 30 FA 65 No Ac EM 04 -1 -0 .0 WV 45 t ti AR 61 6- 1- 00 LY 94 Av ve IN 10 20 20 8 ai 38 08 08 PH la 0. 1 AR bl 9 MA e MG CY TA OF BL ET JA CK SO N CL 00 06 07 00 60 30 FA 41 No Ac ON 37 -1 -0 .0 WV 17 t ti AZ 81 8- 3- 00 LY 58 Av ve EP 91 20 20 1 ai AM 21 08 08 PH la 1 0 AR bl MA e MG CY TA OF BL ET JA CK SO N 00 04 05 01 30 30 JA 48 No Ac 04 -1 -2 .0 CK 97 t ti 50 8- 2- 00 SO 37 Av ve 64 20 20 N ai 06 08 08 AP la 5 OT bl HE e CA RY CL 00 05 05 00 60 30 JA 49 No Ac ON 09 -1 -2 .0 CK 17 t ti AZ 30 6- 2- 00 SO 36 Av ve EP 83 20 20 N ai AM 31 08 08 AP la 1 0 OT bl HE e MG CA RY TA BL ET 00 05 05 00 28 7 FA 65 No Ac 17 -1 -2 .0 WV 34 t ti 24 4- 2- 00 LY 09 Av ve 07 20 20 5 ai 47 08 08 PH la 0 AR bl MA e CY OF JA CK SO N CL 00 04 04 00 60 30 JA 48 No Ac ON 09 -1 -2 .0 CK 97 t ti AZ 30 8- 4- 00 SO 36 Av ve EP 83 20 20 N ai AM 31 08 08 AP la 1 0 OT bl HE e MG CA RY TA BL ET 00 04 04 00 30 30 JA 48 No Ac 04 -1 -2 .0 CK 97 t ti 50 8- 4- 00 SO 37 Av ve 64 20 20 N ai 06 08 08 AP la 5 OT bl HE e CA RY CL 00 03 04 00 60 30 JA 48 No Ac ON 09 -1 -1 .0 CK 74 t ti AZ 30 7- 7- 00 SO 55 Av ve EP 83 20 20 N ai AM 31 08 08 AP la 1 0 OT bl HE e MG CA RY TA BL ET CL 00 02 03 00 60 30 JA 48 No Ac ON 09 -1 -2 .0 CK 50 t ti AZ 30 5- 6- 00 SO 83 Av ve EP 83 20 20 N ai AM 31 08 08 AP la 1 0 OT bl HE e MG CA RY TA BL ET 00 01 03 00 30 30 RI 64 No Ac 04 -1 -2 .0 TE 44 t ti 50 8- 5- 00 43 Av ve 63 20 20 AI ai 96 08 08 D la 5 PH bl AR e M 17 81 CL 00 01 03 00 60 30 RI 64 No Ac ON 2 .0 TE 44 t ti AZ 30 8- 5- 00 41 Av ve EP 83 20 20 AI ai AM 30 08 08 D la 1 1 PH bl AR e MG M 17 TA 81 BL ET 00 01 03 00 30 30 RI 64 No Ac 2 .0 TE 44 t ti 31 8- 5- 00 42 Av ve 04 20 20 AI ai 30 08 08 D la 1 PH bl AR e M 17 81 Vital Signs 09-05-2012 22:55 Name Value Interpretat Reference Comment ion Range Body 98.3 [degF] Temperature BP 49 mm[Hg] Diastolic BP Systolic 122 mm[Hg] Heart 80 /min Rate/Pulse O2% 98 % Respiratory 16 /min Rate 09-05-2012 22:53 Name Value Interpretat Reference Comment ion Range BP 49 mm[Hg] Diastolic BP Systolic 122 mm[Hg] Heart 80 /min Rate/Pulse O2% 98 % Respiratory 16 /min Rate 09-05-2012 13:22 Name Value Interpretat Reference Comment ion Range Body 97.8 [degF] Temperature BP 72 mm[Hg] Diastolic BP Systolic 119 mm[Hg] Heart 66 /min Rate/Pulse O2% 96 % Respiratory 18 /min Rate 09-05-2012 13:21 Name Value Interpretat Reference Comment ion Range Body 97.8 [degF] Temperature BP 72 mm[Hg] Diastolic BP Systolic 119 mm[Hg] Heart 66 /min Rate/Pulse O2% 96 % Respiratory 18 /min Rate 05-19-2012 23:39 Name Value Interpretat Reference Comment ion Range BP 54 mm[Hg] Diastolic BP Systolic 115 mm[Hg] Heart 65 /min Rate/Pulse O2% 97 % Respiratory 20 /min Rate Procedures Procedure DOS Code Location Performer Comment RADEX 31557 [facility] COMPLETE INC INC MINIMUM 3 VIEWS APPLICATI 81889 [facility] ON LONG 7 PHYSICIAN PHYSICIAN ARM S GROUP S GROUP SPLINT SHOULDER HAND APPLICATI 95905 JEREMY [facility] ON LONG 7 PHYSICIAN U ARM S, PLLC SPLINT SHOULDER HAND RADEX 10910 [place] [facility] ELBOW 7 MEDICAL COMPLETE IMAGING MINIMUM 3 ASS VIEWS UNCLASSIF J3490 [facility] IED DRUGS 7 [place] [address] [facility] INFUSION 7 [facility] THERAPY/P INC INC ROPHYLAXI S /DX 1ST TO 1 HR THERAPEUT 83651 [facility] FLANNERYON IC 7 [facility] INJECTION INC INC IV PUSH EACH NEW DRUG UNCLASSIF J3490 [facility] R[facility] IED DRUGS 7 [facility] INC INC RADEX 07716 [place] GOMEZ FOREARM 2 7 MEDICAL VIEWS IMAGING ASS UNCLASSIF J3490 [facility] IED DRUGS 7 [place] [address] [facility] INFUSION 7 [facility] THERAPY/P INC INC ROPHYLAXI S /DX 1ST TO 1 HR THERAPEUT 22506 [facility] IC 7 [facility] INJECTION INC INC IV PUSH EACH NEW DRUG UNCLASSIF J3490 [facility] IED DRUGS 6 [facility] INC INC CRTCHS E0114 ADVANCED ADVANCED UNDARM 6 TECHNOLOG TECHNOLOG OTH THAN IES INC IES INC WOOD PAIR PAD TIP&HNDGR IP RADEX 06552 [place] SAMMIE ANKLE 6 MEDICAL CELESTINO COMPLETE IMAGING MINIMUM 3 ASS VIEWS RADEX 14678 [place] BEINEKE FOOT 6 MEDICAL CELESTINO COMPLETE IMAGING MINIMUM 3 ASS VIEWS CV STRS 04739 R[facility] KESSLER TST 6 [facility] RX CONT P ECG I&R ONLY MYOCARDIA 71399 [facility] L SPECT 6 [facility] MULTIPLE INC INC STUDIES UNCLASSIF J3490 [facility] IED DRUGS 6 [facility] INC INC CV STRS 15396 R[facility] KESSLER TST 6 [facility] RX CONT P ECG W/O I&R CV STRS 68875 R[facility] VILLANUEVA TST 6 [facility] XERS&/OR INC INC RX CONT ECG TRCG ONLY ECHO [id number] R[facility] TTHRC R-T 6 [facility] 2D INC INC W/WOM-MOD E COMPL SPEC&[place] [address] [facility] TROPONIN 6 [facility] QUANTITAT INC INC MASHA ECG 34413 RICH KESSLER ROUTINE 6 [facility] W/LEAST P 12 LDS I&R ONLY ECG 86422 RICH VILLANUE[facility] ROUTINE 6 [facility] ECG INC INC W/LEAST 12 LDS TRCG ONLY W/O I&R CREATINE 83199 R[facility] V[facility] KINASE 6 [facility] TOTAL INC INC CREATINE 72995 RICH VILLANUEVA KINASE MB 6 [facility] FRACTION INC INC ONLY UNCLASSIF J3490 RICH VILLANUEVA IED DRUGS 6 [place] [address] R[facility] VILLANUEVA INFUSION 6 [facility] THERAPY/P INC INC ROPHYLAXI S /DX 1ST TO 1 HR THERAPEUT 93257 RICH VILLANUEVA IC 6 [facility] INJECTION INC INC IV PUSH EACH NEW DRUG RADEX ABD 92532 [place] [facility] COMPL 6 MEDICAL ROSE MARY AQT ABD IMAGING W/S/E/D ASS VIEWS 1 VIEW CH THERAPEUT 63327 RICH VILLANUEVA IC 5 [facility] PROPHYLAC INC INC TIC/DX INJECTION SUBQ/IM THERAPEUT 24174 R[facility] VILL[facility]UEVA IC 5 [facility] PROPHYLAC INC INC TIC/DX INJECTION SUBQ/IM OPHTH 70059 [facility] MEDICAL 5 ANG ANG XM&EVAL COMPRHNSV ESTAB PT 1/> RADEX 21052 [place] GOMEZ ALL FOOT 5 MEDICAL COMPLETE IMAGING MINIMUM 3 ASS VIEWS RADIOLOGI 14303 [place] [facility] C EXAM 5 MEDICAL ROSE MARY CHEST 2 IMAGING VIEWS ASS FRONTAL&L ATERAL COMPUTER- [address] [place] [address] [facility] A[facility]ED 5 MEDICAL CELESTINO DETECTION IMAGING ASS SCREENING MAMMOGRAP HY SCREENING G0202 RICH VILLANUEVA 5 [facility] MAMMOGRAP INC INC HY VAL INCL CAD WHEN PERFORMD HEMOGLOBI 68105 IRCH V[facility]ANUEVA N 4 [facility] GLYCOSYLA INC INC TREVON A1C BLOOD 34161 RICH VILLANUEVA COUNT 4 [facility] COMPLETE INC INC AUTO&AUTO DIFRNTL WBC COMPREHEN 26456 R[facility] V[facility]UEVA SIVE 4 [facility] METABOLIC INC INC PANEL SPLINT S8451 [facility] PREFABRIC 4 PHYSICIAN PHYSICIAN ATED S GROUP S GROUP WRIST OR ANKLE DETERMINA 49084 SCIFRES SCIFRES TION 3 ANG ANG REFRACTIV E STATE OPHTH 69562 SCIFRES SCIFRES MEDICAL 3 ANG ANG XM&EVAL COMPRE NEW PT 1/> [facility]ST [facility] 28570 [facility] MEDICAL ROSE MARY EXAMINATI IMAGING ON KNEE 3 ASS VIEWS THERAPEUT 47941 RICH VILLANUEVA IC 3 [facility] PROPHYLAC INC INC TIC/DX INJECTION SUBQ/IM THERAPEUT 09259 [facility] IC 3 MED CTR, MED CTR, PROPHYLAC ATTN: ATTN: TIC/DX DENE DENE INJECTION SUBQ/IM RADEX 42966 [place] [facility] FOOT 3 MEDICAL ROSE MARY COMPLETE IMAGING MINIMUM 3 ASS VIEWS THERAPEUT 25458 [facility] IC 3 MED CTR, MED CTR, PROPHYLAC ATTN: ATTN: TIC/DX DENE DENE INJECTION SUBQ/IM RADEX 31655 [place] WALLY SPINE 3 RIVER HBP ISSA LUMBOSACR LLC AL 2/3 VIEWS RADIOLOGI 83930 [place] WALLY C 3 RIVER HBP ISSA EXAMINATI LLC ON PELVIS 1/2 VIEWS THERAPEUT 27245 RICH VILLANUEVA IC 2 [facility] INJECTION INC INC IV PUSH EACH NEW DRUG RADIOLOGI 18725 RADIOLOGY NEILS DUY C EXAM 2 CHEST 2 ASSOCIATE VIEWS S OF [facility] FRONTAL&L ATERAL RADIOLOGI 94078 [place] [facility] C EXAM 2 MEDICAL ROSE MARY CHEST 2 IMAGING VIEWS ASS FRONTAL&L ATERAL PRESSURIZ 40439 RICH FLANNERYON ED/NONPRE 2 [facility] SSURIZED INC INC INHALATIO N TREATMENT RADEX HIP 12307 [facility] [place]IDE 2 RADIOLOGY ANGIE UNILATERA L COMPLETE MINIMUM 2 VIEWS RADEX 18975 [facility] [place] SPINE 2 RADIOLOGY ANGIE LUMBOSACR AL MINIMUM 4 VIEWS RADIOLOGI 22037 [facility] [place] CHI C EXAM 2 RADIOLOGY TORY CHEST 2 VIEWS FRONTAL&L ATERAL OPHTH 05669 [facility] [address] XM&EVAL COMPRE NEW PT 1/> VST DETERMINA [address] [place] T[address] REFRACTIV E STATE APPL 15015 LUCRECIA SINGER MODALITY 2 KYRIE KYRIE 1/> AREAS ELEC STIMJ UNATTENDE D RADEX 04257 [facility] SING[facility] SPINE 2 KYRIE KYRIE LUMBOSACR AL 2/3 VIEWS CHIROPRAC 04688 [facility] SINGER TIC 2 KYRIE KYRIE MANIPLTV TX EXTRASPIN AL 1/> REGION CHIROPRAC 97733 [facility]CRECIA SINGER TIC 2 KYRIE KYRI[place] MANIPULAT [place] SPINAL 3-4 REGIONS RADEX 54062 [facility]CRECIA SINGER SPINE 2 KYRIE KYRIE CERVICAL 2 OR 3 VIEWS RADEX 45293 [facility] FOREARM 2 2 MED CTR, MED CTR, VIEWS ATTN: ATTN: ARVIND SAMUELS RADEX HIP 18583 [facility] 2 MED CTR, MED CTR, UNILATERA ATTN: ATTN: Ric SAMUELS COMPLETE MINIMUM 2 VIEWS COMPREHEN 17926 [facility] SIVE 2 MED CTR, MED CTR, METABOLIC ATTN: ATTN: PANEL ARVIND SAMUELS COLLECTIO 34349 [facility] N VENOUS 2 MED CTR, MED CTR, BLOOD ATTN: ATTN: VENIP[place] [address] [facility] INFLUENZA 2 MED CTR, MED CTR, A/B EACH ATTN: ATTN: ARVIND SAMUELS RADIOLOGI 34902 [facility] C EXAM 2 MED CTR, MED CTR, CHEST 2 ATTN: ATTN: VIEWS ARVIND SAMUELS FRONTAL&L ATERAL BLOOD 22047 [facility] COUNT 2 MED CTR, MED CTR, COMPLETE ATTN: ATTN: AUTO&AUTO DENE DENE DIFRNTL WBC THERAPEUT 03742 [facility] IC 1 MED CTR, MED CTR, PROPHYLAC ATTN: ATTN: TIC/DX DENE DENE INJECTION SUBQ/IM RADEX 57428 WALLY WALLY SPINE 1 ISSA ISSA LUMBOSACR AL 2/3 VIEWS THERAPEUT 02833 [facility] IC 1 MED CTR, MED CTR, PROPHYLAC ATTN: ATTN: TIC/DX DENE DENE INJECTION SUBQ/IM NONEMERG A0120 [facility] TRNSPRT: 1 [facility] Liquid Light [facility]/OTH SYS THERAPEUT 43680 [facility] IC 1 MED CTR, MED CTR, PROPHYLAC ATTN: ATTN: TIC/DX DENE DENE INJECTION SUBQ/IM THERAPEUT 27713 [facility] IC 1 MED CTR, MED CTR, PROPHYLAC ATTN: ATTN: TIC/DX DENE DENE INJECTION SUBQ/IM NONEMERG A0120 [facility] TRNSPRT: 1 [facility] Liquid Light [facility] AREA/OTH SYS RADEX 16216 [facility] HAND 1 MED CTR, MED CTR, MINIMUM 3 ATTN: ATTN: VIEWS DENE DENE RADEX 66102 [facility]UM & 1 RIVER HBP N NOR COCCYX LLC MINIMUM 2 VIEWS RADEX 05135 [facility] SPINE 1 RIVER HBP N NOR LUMBOSACR LLC AL 2/3 VIEWS THERAPEUT 19095 [facility] IC 1 FAMILY GOMEZ PROPHYLAC CLINIC TIC/DX INJECTION SUBQ/IM INJECTION J0696 [facility] 1 FAMILY FAMILY CEFTRIAXO CLINIC CLINIC NE SODIUM PER 250 MG NONEMERG A0120 [facility] TRNSPRT: 1 [facility] [employer] [facility] [place] P AREA/[place] [address] [facility] ABDOMINAL 1 MED CTR, MED CTR, REAL ATTN: ATTN: TIME DENE DENE W/IMAGE LIMITED URNLS DIP 25137 [place] [facility] 1 MED CTR, MED CTR, STICK/TAB ATTN: ATTN: LET DENE MARIA DE REAGENT AUTO MICROSCOP Y THROMBOPL 64416 [facility] [facility] ASTIN 1 MED CTR, MED CTR, TIME ATTN: ATTN: PARTIAL DENE DENE PLASMA/WH OLE BLOOD RADIOLOGI 27692 [facility] C EXAM 1 MED CTR, MED CTR, CHEST 2 ATTN: ATTN: VIEWS DENE DENDonald FRONTAL&L ATERAL COMPREHEN 87984 [facility] SIVE 1 MED CTR, MED CTR, METABOLIC ATTN: ATTN: PANEL DENE DENDonald COLLECTIO 02101 [facility] [place] N VENOUS 1 MED CTR, MED CTR, BLOOD ATTN: ATTN: VENIPUNCT DENDonald SAMUELS URE PROTHROMB 16115 [facility] IN TIME 1 MED CTR, MED CTR, ATTN: ATTN: DENE DENE ECG 49975 [facility] [place] ROUTINE 1 MED CTR, MED CTR, ECG ATTN: ATTN: W/LEAST DENE DENE 12 LDS TRCG ONLY W/O I&R ECHO 86622 [facility] [place] TTHRC R-T 1 MED CTR, MED CTR, 2D ATTN: ATTN: W/WOM-MOD DENE DENE E COMPL SPEC&COLR D BLOOD 69541 [facility] COUNT 1 MED CTR, MED CTR, COMPLETE ATTN: ATTN: AUTO&AUTO DENE DENE DIFRNTL WBC INJECTION [id number] [facility] FAMILY FAMILY CEFTRIAXO [facility]INIC CLINIC NE SODIUM PER 250 MG THERAPEUT 98519 [facility] 1 FAMILY GOMEZ PROPHYLAC CLINIC TIC/DX INJECTION SUBQ/IM SEDIMENTA 49986 [facility] [place] TION RATE 1 MED CTR, MED CTR, RBC ATTN: ATTN: NON-AUTOM DENE MARIA DE ATED COLLECTIO 21935 [facility] [place] N VENOUS 1 MED CTR, MED CTR, BLOOD ATTN: ATTN: VENIPUNCT ARVIND SAMUELS URE DNA 29020 [place] [facility] ANTIBODY 1 MED CTR, MED CTR, ASSINIBOINE AND [place] TRIBES/DO ATTN: ATTN: UBDENNIS SAMUELS STRANDED ANTINUCLE 57214 [place] [facility] AR 1 MED CTR, MED CTR, ANTIBODIE ATTN: ATTN: S DADA MARIA DE DENE CYCLIC 29142 [place] [facility] CITRULLIN 1 MED CTR, MED CTR, ATED ATTN: ATTN: PEPTIDE ARVIND DENDonald ANTIBODY EXTRACTAB 67541 [facility] LE 1 MED CTR, MED CTR, NUCLEAR ATTN: ATTN: ANTIGEN ARVIND SAMUELS ANTIBODY ANY METHOD NONEMERG A0120 [facility] TRNSPRT: 1 [facility] [employer] [facility] ACTION P AREA/OTH SYS RADEX 00201 [place] WALLY FOOT 1 RIVER HBP ISSA COMPLETE LLC MINIMUM 3 VIEWS RADEX 43097 [facility] HAND 2 1 MED CTR, MED CTR, VIEWS ATTN: ATTN: DENE DENE WRIST L3908 [facility] HAND 1 ORTHOSIS EXT CONTROL COCK-UP PREFAB NONEMERG A0120 [facility] TRNSPRT: 1 [facility] ACTION P AREA/OTH SYS RADIOLOGI 07252 [facility] C EXAM 1 MED CTR, MED CTR, CHEST 2 ATTN: ATTN: VIEWS DENE DENE FRONTAL&[place] [address] [facility] HEAD/BRAI 1 MED CTR, MED CTR, N W/O ATTN: ATTN: [place] [address] [place] [facility] CERVICAL 1 MED CTR, MED CTR, SPINE W/O ATTN: ATTN: CONTRAST DENE DENE MATERIAL RADEX 32510 [place] [facility] SPINE 1 MED CTR, MED CTR, LUMBOSACR ATTN: ATTN: AL 2/3 DENE DENE VIEWS RADEX 93847 [facility] SHOULDER 1 MED CTR, MED CTR, COMPLETE ATTN: ATTN: MINIMUM 2 DENE DENE VIEWS NONEMERG A0120 [facility] TRNSPRT: 1 [facility] ARE[facility]/OTH SYS NONEMERG A0120 [facility] TRNSPRT: 1 [facility] ACTION P AREA/OTH SYS ANESTHESI 03010 TRIANGLE MULLER A 1 ANESTHESI TORY ANORECTAL A GROUP PS PROCEDURE HEMORRHOI 63167 HAZARD JOSE L DECTOMY 1 FAMILY GABY XTRNL 2/> HEALTH SRV AR COLUMN/GR OUP COLLECTIO 01766 [facility] N VENOUS 1 AN AN BLOOD [facility] VENIPUNCT MEDICAL MEDICAL URE BASIC 99506 [facility] METABOLIC 1 AN AN PANEL [facility] CALCIUM [facility] MEDICAL TOTAL NONEMERG A0120 [facility] TRNSPRT: 1 [facility] ACTION P AREA/OTH SYS HEMOGLOBI 94456 CHAESTRELLA MURJAX PINEDA N 1 CLINIC GLYCOSYLA TREVON A1C BLOOD 58992 [facility] COUNT 1 MED CTR, MED CTR, COMPLETE ATTN: ATTN: AUTO&AUTO DENE DENE DIFRNTL WBC URNLS DIP 02211 [facility] 1 MED CTR, MED CTR, STICK/TAB ATTN: ATTN: RUDY SAMUELS [place] [address] [facility] AMYLASE 1 MED CTR, MED CTR, ATTN: ATTN: ARVIND SAMUELS DRUG SCRN 16832 [facility] 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 1 MED CTR, MED CTR, CLASS ATTN: ATTN: NONCHROMO DENE DENE TOGRAPHIC EACH COLLECTIO 77794 [place] [facility] N VENOUS 1 MED CTR, MED CTR, BLOOD ATTN: ATTN: VENIPUNCT DENE DENE URE COMPREHEN 63395 [facility] SIVE 1 MED CTR, MED CTR, METABOLIC ATTN: ATTN: PANEL DENE DENE ANTIBODY 42125 [facility] HELICOBAC 1 MED CTR, MED CTR, TER ATTN: ATTN: [place] [address] [facility] LIPASE 1 MED CTR, MED CTR, ATTN: ATTN: ARVIND SAMUELS NONEMERG A0120 [facility] TRNSPRT: 0 [facility] ACTION P AREA/OTH SYS ARTHROCEN 62530 ALEC TRISTAN PINEDA TESIS 0 CLINIC ASPIR&/IN J INTERM JT/[place] [address] [employer] GUIDANCE 0 CLINIC CLINIC NEEDLE PLACEMENT IMG S&I NONEMERG A0120 [facility] TRNSPRT: 0 [facility] [employer] [facility] ACTION P AREA/OTH SYS NONEMERG A0120 [facility] TRNSPRT: 0 [facility] ACTION P AREA/OTH SYS NONEMERG A0120 [facility] TRNSPRT: 0 [facility] MINI-[employer] [facility] ACTION P AREA/OTH SYS RADEX 20218 APPALACHI APPALACHI RIBS 0 AN AN UNILATERA REGIONAL REGIONAL L 2 VIEWS MEDICAL MEDICAL NONEMERG A0120 [facility] TRNSPRT: 0 [facility] ACTION P AREA/OTH SYS INJECTION 75893 ALEC TRISTAN PINEDA 0 CLINIC SINGLE/ML T TRIGGER POINT 1/2 MUSCLES NONEMERG A0120 [facility] TRNSPRT: 0 [facility] [employer] [facility] [place] AREA/[place] [address] [employer] SystemsS GUIDANCE 0 CLINIC CLINIC NEEDLE PLACEMENT IMG S&I NONEMERG A0120 [facility] TRNSPRT: 0 [facility] [employer] [facility] ACTION P AREA/OTH SYS URNLS DIP 57690 [facility] 0 MED CTR MED CTR STICK/TAB LET REAGENT AUTO MICROSCOP Y BLOOD 97757 [facility] COUNT 0 MED CTR MED CTR SMEAR MCRSCP W/MNL DIFRNTL WBC COUNT IADNA 28326 [facility] 0 [employer]ose[employer] VIRUS HUMAN AMPLIFIED PROBE TQ CYTP C/V 24599 [facility] AUTO THIN 0 Goose[employer] LYR PREPJ SCR MNL RESCR PHYS CULTURE 06135 [facility] BACTERIAL 0 MED CTR MED CTR QUANTTATI VE COLONY COUNT URINE COLLECTIO 56127 [facility] N 0 MED CTR MED CTR CAPILLARY BLOOD SPECIMEN BLOOD 77794 [facility] COUNT 0 MED CTR MED CTR COMPLETE AUTOMATED RADEX 69316 [facility] SPINE 0 MED CTR MED CTR LUMBOSACR AL 2/3 VIEWS RADEX 84746 [facility] ANKLE 0 MED CTR MED CTR COMPLETE MINIMUM 3 VIEWS I&D 06364 [facility] DUNCANLis LAZARUS, HEMATOMA 0 [place] HBP HEMANTH J SEROMA/FL LLC UID COLLECTIO N INCISION 68845 [facility] DUNCANLis SPADY, THROMBOSE 0 [place] HBP HERIBERTO D D LLC HEMORRHOI D EXTERNAL RADEX 18523 BREATHIT STANTON, A HAND 0 [facility] MINIMUM 3 IMAGING VIEWS CENTER SERVICES 59967 DAVIDSON, DAVIDSON, PROVIDED 0 SAVI HOU OFFICE OTH/THN REG SCHED HOURS GENERAL 02054 [facility] 0 [employer]ose[employer] PANEL LIPID 23052 [facility] PANEL 0 viavoo [facility] IAADIADOO 39417 [facility] 9 MED CTR MED CTR STREPTOCO CCUS GROUP A COLLECTIO 96300 [facility] N VENOUS 9 MED CTR MED CTR BLOOD VENIPUNCT URE BLOOD 87749 [facility] COUNT 9 MED CTR MED CTR COMPLETE AUTO&AUTO DIFRNTL WBC CUL BACT 57795 [facility] XCPT 9 MED CTR MED CTR URINE BLOOD/STO OL AEROBIC ISOL CUL BACT 65112 [facility] AEROBIC 9 MED CTR MED CTR ADDL METHS DEFINITIV E EA ISOL SUSCEPTIB 53647 [facility] LTY STDY 9 MED CTR MED CTR ANTIMICRB IAL MICRO/AGA R DILUTJ INCISION 77615 [place] JACE, & 9 RIVER MED MALU W DRAINAGE CTR ABSCESS SIMPLE/SI NGLE MRI BRAIN 92870 GRAM STANTON, A BRAIN 9 RESOURCES R STEM W/O CONTRAST MATERIAL MRI 53005 GRAM STANTON, A SPINAL 9 RESOURCES R CANAL LUMBAR W/O CONTRAST MATERIAL COLLECTIO 12573 MALU WHITTAKER, N VENOUS 9 JONAN SUBIR BLOOD [facility] VENIPUNCT [facility] URE INC THERAPEUT 96151 MALU WHITTAKER, IC 9 JONAN SUBIR PROPHYLAC [facility] TIC/DX CLINIC INJECTION INC SUBQ/IM BLOOD 93927 LAB K[facility]ON LAB K[facility]ON COUNT 9 AMERIC AMERIC COMPLETE HOLDING HOLDING AUTO&AUTO DIFRNTL WBC MRI 34770 PHYSICIAN VIRAL SPINAL 9 S MATHIEU D CANAL SERVICES LUMBAR PSC W/O CONTRAST MATERIAL MRI 82857 PHYSICIAN VIRAL SPINAL 9 S MATHIEU D CANAL SERVICES CERVICAL PSC W/O CONTRAST MATRL MRI BRAIN 99959 PHYSICIAN VIRAL BRAIN 9 S MATHIEU D STEM W/O SERVICES CONTRAST PSC MATERIAL THER 02547 MALU Rashid TITUS, PROPH/DX 8 JOCARLOS ELISA J [facility]X [facility] SUBQ/IM CLINIC INC CYTP 21362 [employer] [place], CERV/VAG 8 [place] INC MAUREEN D AUTO THIN LAYER PREP MNL SCREEN RADIOLOGI 29967 [place] Naomi ROGERS EXAM 8 [facility] OMAR K CHEST 2 CTR VIEWS FRONTAL&L ATERAL OPHTH 46951 [facility] 8 EYE JELLY P XM&EVAL INSTITUTE COMPRE NEW PT 1/> VST DETERMINA 75349 [facility] ST[facility] 8 EYE JELLY P REFRACTIV INSTITUTE E STATE GLUC BLD 65848 LETITIA, LETITIA, GLUC MNTR 8 EMILI Bennett DEV CLEARED FDA SPEC HOME USE RADEX 39029 LETITIA, LETITIA, HAND 2 8 EMILI Bennett VIEWS Encounters Encounter Start End Date Code Location Performer Type Date OFFICE 65317 [facility] KELLY OUTPATIEN 7 7 PHYSICIAN T VISIT S GROUP 10 MINUTES HOSPITAL R[facility] - 7 7 [facility] OUTPATIEN [facility] T OFFICE 69100 [facility] KELLY SMITH 7 7 PHYSICIAN T NEW 30 S GROUP MINUTES EMERGENCY 92667 RICH 7 7 [facility] T VISIT HIGH/URGE NT SEVERITY HOSPITAL RICH - 7 7 [facility] OUTPATIEN [facility] T EMERGENCY 31631 JEREMY LINDSEY 7 7 PHYSICIAN [facility] T VISIT HIGH/URGE NT SEVERITY HOSPITAL RICH - 7 7 [facility] OUTPATIEN [facility] T HOSPITAL RICH - 7 7 [facility] OUTPATIEN [facility] T EMERGENCY 22828 RICH 7 7 [facility] T VISIT LOW/MODER SEVERITY EMERGENCY 94916 JEREMY LINDSEY 7 7 PHYSICIAN [facility] T VISIT HIGH/URGE NT SEVERITY HOSPITAL RICH - 7 7 [facility] OUTPATIEN [facility] T EMERGENCY [address] [address] [facility] T VISIT HIGH/URGE NT SEVERITY EMERGENCY 68600 RICH 6 6 [facility] T VISIT LOW/MODER SEVERITY EMERGENCY 66817 JEREMY LINDSEY [address] [facility] T VISIT MODERATE SEVERITY HOSPITAL RICH - 6 6 [facility] OUTPATIEN [facility] T HOSPITAL RICH - 6 6 [facility]PATI[facility] T HOSPITAL RICH - 6 6 [facility] T HOSPITAL RICH - 6 6 [facility] OUTPATIEN [facility] T EMERGENCY [address] [address] [facility] T VISIT LOW/MODER SEVERITY EMERGENCY 80112 JEREMY BUSH DEPT 6 6 PHYSICIAN U CELESTINO [facility]ISIT S, [facility]& THREAT FUNCJ EMERGENCY 52432 RICH 6 6 MEM [facility] DEPARTMEN INC T VISIT LOW/MODER SEVERITY EMERGENCY 22538 JEREMY ECHEVERRIA 6 6 PHYSICIAN DEPARTMEN S, PLLC T VISIT MODERATE SEVERITY HOSPITAL RICH - 6 6 [facility] OUTPATIEN INC T HOSPITAL RICH - 6 6 [facility] OUTPATIEN INC T EMERGENCY 43009 RICH 6 6 MEM [facility] DEPARTMEN INC T VISIT MODERATE SEVERITY EMERGENCY 71202 JEREMY LINDSEY 6 6 PHYSICIAN AGUSTO DEPARTMEN S, [facility] T VISIT HIGH/URGE NT SEVERITY EMERGENCY 43066 JEREMY WAGONER 6 6 PHYSICIAN DEPARTMEN S, [facility] T VISIT HIGH/URGE NT SEVERITY EMERGENCY 59569 RICH 6 6 MEM [facility] DEPARTMEN INC T VISIT LOW/MODER SEVERITY HOSPITAL RICH - 6 6 [facility] INC T HOSPITAL RICH - 5 5 [facility] OUTPATIEN INC T EMERGENCY 19101 JEREMY WAGONER 5 5 PHYSICIAN DEPARTMEN S, [facility] T VISIT MODERATE SEVERITY HOSPITAL RIHC - 5 5 [facility] OUTPATIEN INC T EMERGENCY 01269 JEREMY LINDSEY 5 5 PHYSICIAN AGUSTO DEPARTMEN S, [facility] T VISIT MODERATE SEVERITY EMERGENCY 68366 RICH 5 5 MEM [facility]OS[facility] DEPARTMEN INC T VISIT LOW/MODER SEVERITY EMERGENCY 58159 JEREMY LEONG 5 5 PHYSICIAN SHELIA DEPARTMEN S, [facility] T VISIT HIGH/URGE NT SEVERITY HOSPITAL RICH - 5 5 [facility] OUTPATIEN INC T OFFICE 60123 [facility] PRAMOD OUTPATIEN 5 5 PHYSICIAN AGUSTO T VISIT S GROUP 15 MINUTES EMERGENCY 31276 ANSON ANSON 5 5 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/RECEIVING MANAGER DEPARTMEN T VISIT MODERATE SEVERITY OFFICE 90642 [facility] PRAMOD OUTPATIEN 5 5 PHYSICIAN AGUSTO T VISIT S GROUP 15 MINUTES OFFICE 08983 [facility] PARMOD OUTPATIEN 5 5 PHYSICIAN AGUSTO T VISIT S GROUP 15 MINUTES EMERGENCY 36258 SOTINGEAN SOTINGEAN 5 5 U CELESTINO U CELESTINO DEPARTMEN T VISIT HIGH/URGE NT SEVERITY OFFICE 05005 SCIFRES SCIFRES OUTPATIEN 5 5 ANG ANG T VISIT 10 MINUTES OFFICE 18571 SCHILLING ELFEGO SCHILLING ELFEGO OUTPATIEN 5 5 T VISIT 10 MINUTES OFFICE 63352 [facility] PRAMOD OUTPATIEN 5 5 PHYSICIAN AGUSTO T VISIT S GROUP 15 MINUTES OFFICE 38902 [facility] PRAMOD OUTPATIEN 5 5 PHYSICIAN AGUSTO T VISIT S GROUP 15 MINUTES OFFICE 05094 [facility] PRAMOD OUTPATIEN 5 5 PHYSICIAN AGUSTO T VISIT S GROUP 15 MINUTES OFFICE 24545 [facility] PRAMOD OUTPATIEN 5 5 PHYSICIAN AGUSTO T VISIT S GROUP 15 MINUTES OFFICE 60548 [facility] PRAMOD OUTPATIEN 5 5 PHYSICIAN AGUSTO T VISIT S GROUP 10 MINUTES HOSPITAL RICH - 5 5 [facility] OUTPATIEN INC T OFFICE 79523 [facility] PRAMOD OUTPATIEN 4 4 PHYSICIAN AGUSTO T VISIT S GROUP 10 MINUTES OFFICE 61738 [facility] PRAMOD OUTPATIEN 4 4 PHYSICIAN AGUSTO T VISIT S GROUP 10 MINUTES OFFICE 62479 [facility] PRAMOD OUTPATIEN 4 4 PHYSICIAN AGUSTO T VISIT S GROUP 10 MINUTES OFFICE 52072 [facility] PRAMOD OUTPATIEN 4 4 PHYSICIAN AGUSTO T VISIT S GROUP 15 MINUTES EMERGENCY 08420 PRAMOD LINDSEY 4 4 AGUSTO AGUSTO DEPARTMEN T VISIT MODERATE SEVERITY HOSPITAL RICH - 4 4 [facility] OUTPATIEN INC T OFFICE 17859 [facility] OUTPATIEN 4 4 PHYSICIAN T VISIT S GROUP 15 MINUTES OFFICE 12140 [facility] PRAMOD OUTPATIEN 3 3 PHYSICIAN AGUSTO T VISIT S GROUP 10 MINUTES HOSPITAL [place] - 3 3 MED CTR, OUTPATIEN ATTN: T DENE EMERGENCY 52548 THANIA DEL RIO, 3 3 RIVER HBP III [facility] T VISIT MODERATE SEVERITY OFFICE 48887 [facility] PETTEY OUTPATIEN 3 3 PHYSICIAN JAM T NEW 30 S GROUP MINUTES Emergency BON Lindsey MD (ER) 3 22:27 3 22:55 [facility] Emergency BON Her MD (ER) 3 12:27 3 13:22 [facility] EMERGENCY 66649 AVIS KAUR 3 3 EMERGENCY DEPARTMEN SERVICES T VISIT HIGH/URGE NT SEVERITY EMERGENCY 56061 RICH 3 3 [facility] DEPARTMEN INC T VISIT LOW/MODER SEVERITY HOSPITAL RICH - 3 3 [facility] OUTPATIEN INC T HOSPITAL [facility] - 3 3 MED CTR, OUTPATIEN ATTN: T DENE EMERGENCY 42419 [facility] 3 3 MED CTR, DEPARTMEN ATTN: T VISIT DENE MODERATE SEVERITY EMERGENCY 65649 THANIA MCCORMICK 3 3 RIVER HBP [facility] T VISIT LOW/MODER SEVERITY Emergency BON Waller (ER) 3 22:40 3 23:40 [facility] RICH - 3 3 [facility] OUTPATIEN INC T EMERGENCY 16201 AVIS LINDSEY 3 3 EMERGENCY AGUSTO DEPARTMEN SERVICES T VISIT MODERATE SEVERITY HOSPITAL [place] - 3 3 MED CTR, OUTPATIEN ATTN: T DENE EMERGENCY 95487 [place] 3 3 MED CTR, DEPARTMEN ATTN: T VISIT DENE MODERATE SEVERITY EMERGENCY 98302 [place] 3 3 MED CTR, DEPARTMEN ATTN: T VISIT DENE MODERATE SEVERITY HOSPITAL [place] - 3 3 MED CTR, OUTPATIEN ATTN: T DENE EMERGENCY 23133 [facility] LINDSEY 2 2 EMERGENCY AGUSTO DEPARTMEN SERVICES T VISIT HIGH/URGE NT SEVERITY HOSPITAL [facility] - 2 2 [facility] T EMERGENCY 88316 [place]AN[place]ASS[place] 2 2 MED CTR, DEPARTMEN ATTN: T VISIT DENE LOW/MODER SEVERITY EMERGENCY 87307 [facility] 2 2 [facility]IVER [facility] MOD[facility]ATE SEVERITY H[facility] - 2 2 MED CTR, OUTPATIEN ATTN: T DENE EMERGENCY 81153 [facility] DEPT 2 2 SERGIO AGUSTO VISIT MED CTR HIGH SEVERITY& THREAT FUNJ EMERGENCY 30874 [facility] 2 2 [facility] T VISIT LOW/MODER SEVERITY HOSPITAL [facility] - 2 2 [facility] OUTPATIEN INC T EMERGENCY 68797 DANIEL 2 2 [facility] MEDICAL T VISIT CENTE LIMITED/M INOR PROB EMERGENCY 94114 [facility] QUIÑONES 2 2 EMERGENCY DEPARTMEN SERVICES T VISIT HIGH/URGE NT SEVERITY HOSPITAL DANIEL - 2 2 [facility] 16980 ALDA ARAUZ [facility] 2 2 ZULUETA JR TREMAINE T NEW 30 MD PLLC MINUTES [facility]OSP[facility] [place] 2 2 [facility], OUTPATIEN ATTN: T [place]E EMERGENCY 99140 [place] 2 2 [facility], DEPARTMEN ATTN: T VISIT DENE MODERATE SEVERITY OFFICE 93127 LUCRECIA SINGER OUTPATIEN 2 2 [place] [place] T NEW 30 MINUTES [facility]OSP[facility] [place] 2 2 [facility], OUTPATIEN ATTN: T DENE EMERGENCY 64929 [place] 2 2 [facility], DEPARTMEN ATTN: T VISIT DENE MODERATE SEVERITY EMERGENCY 98745 [place] 2 2 [facility], DEPARTMEN ATTN: T VISIT DENE LIMITED/M INOR PROB [facility]OSP[facility] [place] - 2 2 [facility], OUTPATIEN ATTN: T DENE EMERGENCY 44763 [place] 2 2 [facility], DEPARTMEN ATTN: T VISIT [facility]E MODERATE SEVERITY [facility] [place] 2 2 [facility], OUTPATIEN ATTN: T [facility] [place] - 2 2 [facility], OUTPATIEN ATTN: T DENE EMERGENCY 30909 [facility] 2 2 [facility]IVER [facility] T VISIT LOW/MODER SEVERITY EMERGENCY 01153 [place] 2 2 [facility], DEPARTMEN ATTN: T VISIT DENE HIGH/URGE NT SEVERITY EMERGENCY 80925 [place] 2 2 [facility], DEPARTMEN ATTN: T VISIT [facility] MODERATE SEVERITY [facility] [place] 2 2 [facility], OUTPATIEN ATTN: T [facility] [place] - 1 1 [facility], OUTPATIEN ATTN: T DENE EMERGENCY 40022 [place] 1 1 [facility], DEPARTMEN ATTN: T VISIT DENE LOW/MODER SEVERITY EMERGENCY 60115 THANIA MCCORMICK 1 1 [facility] T VISIT MODERATE SEVERITY EMERGENCY 12462 NATTY LUZ 1 1 [facility]ER [facility] [place] 1 1 [facility], OUTPATIEN ATTN: T [place]E EMERGENCY 31813 [place] 1 1 [facility], DEPARTMEN ATTN: T VISIT [facility] MODERATE SEVERITY [facility] [place] 1 1 [facility], OUTPATIEN ATTN: T DENE EMERGENCY 44131 GUILLERMO JOSE ANGEL GUILLERMO JOSE ANGEL 1 1 DEPARTMEN T VISIT MODERATE SEVERITY OFFICE 91155 [facility] OUTPATIEN 1 1 VASCULAR T NEW 45 SPECIALIS MINUTES TS OFFICE 53226 [facility] & OUTPATIEN 1 1 VASCULAR T VISIT SPECIALIS 25 TS MINUTES OFFICE 67971 CHAVIES MURAD PINEDA OUTPATIEN 1 1 CLINIC T VISIT 25 MINUTES EMERGENCY 38611 NATTY LUZ 1 1 [facility]ER [facility] [place] [facility] 1 [facility], OUTPATIEN ATTN: T DENE EMERGENCY 82730 [place] 1 1 [facility], DEPARTMEN ATTN: T VISIT DENE MODERATE SEVERITY EMERGENCY [place] 1 1 [facility], DEPARTMEN ATTN: T VISIT [facility]E MODERATE SEVERITY [facility] [place] [facility] 1 [facility], OUTPATIEN ATTN: T DENE OFFICE 50658 CHAVIES MURAD [facility]ED[facility] OUTPATIEN 1 1 CLINIC T VISIT 15 MINUTES EMERGENCY 06236 [place] 1 1 [facility], DEPARTMEN ATTN: T VISIT [facility]E MODERATE SEVERITY [facility]OSP[facility] [place] 1 1 [facility], OUTPATIEN ATTN: T DENE EMERGENCY 04921 THANIA MCCORMICK 1 1 [facility] T VISIT HIGH/URGE NT SEVERITY OFFICE 40439 ALEC TRISTAN [facility]ED[facility] OUTPATIEN 1 1 CLINIC T VISIT 25 MINUTES OFFICE 22157 ALEC TRISTAN PINEDA OUTPATIEN 1 1 CLINIC T VISIT 25 MINUTES EMERGENCY 62861 THANIA LUZ 1 1 [facility] T VISIT HIGH/URGE NT SEVERITY [facility]PITAL [place] 1 1 [facility], OUTPATIEN ATTN: T [facility] 17161 [place] [facility] [facility], DEPARTMEN ATTN: T VISIT DENE MODERATE SEVERITY OFFICE 72373 [facility] LESLIE OUTPATIEN 1 1 FAMILY GOMEZ T VISIT CLINIC 25 MINUTES [facility] [place] [facility] [facility], [facility] ATTN: [facility] [place] [facility], OUTPATIEN ATTN: T [facility] EM[facility]Y 91718 [facility] [place] 1 1 [facility] T VISIT LOW/MODER SEVERITY EMERGENCY 65321 [place] [facility], DEPARTMEN ATTN: T VISIT DENE MODERATE SEVERITY [facility] [place] [facility], [facility]PATIEN [facility]N: [facility] 74222 [facility] T VISIT LOW/MODER SEVERITY [facility] [place] [facility], OUTPATIEN ATTN: [facility] 85829 [place] [facility], DEPARTMEN ATTN: T VISIT DENE MODERATE SEVERITY EMERGENCY 91243 [place] GUILLERMO JOSE ANGEL 1 1 [facility] T VISIT LOW/MODER SEVERITY EMERGENCY 07438 [place] [facility] 1 1 [facility], DEPARTMEN ATTN: T VISIT [facility] MODERATE SEVERITY [facility] [place] [facility], OUTPATIEN ATTN: T DENE OFFICE 25889 ALEC TRISTAN PINEDA OUTPATIEN 1 1 CLINIC T VISIT 15 MINUTES [facility]OSPITAL [facility] - 1 1 AN OUTPATIEN REGIONAL T MEDICAL OFFICE 01790 ALEC TRISTAN ASM OUTPATIEN 1 1 CLINIC T VISIT 15 MINUTES OFFICE 61234 HAZARD JOSE L OUTPATIEN 1 1 FAMILY GABY T NEW 60 HEALTH MINUTES SRV AR OFFICE 16550 ALEC TRISTAN PINEDA OUTPATIEN 1 1 CLINIC T VISIT 15 MINUTES [facility] [place] [facility], OUTPATIEN ATTN: [place] [facility]Y 40350 [place] 1 1 [facility], DEPARTMEN ATTN: T VISIT DENE MODERATE SEVERITY OFFICE 11939 JUAN JOSES CODYAD PINEDA OUTPATIEN 1 1 CLINIC T VISIT 15 MINUTES OFFICE 13288 ALEC ROSSAD PINEDA OUTPATIEN 0 0 CLINIC T VISIT 15 MINUTES OFFICE 47523 JUAN JOSES CODYAD PINEDA OUTPATIEN 0 0 CLINIC T VISIT 15 MINUTES OFFICE 44670 JUAN JOSES CODYAD PINEDA OUTPATIEN 0 0 CLINIC T VISIT 25 MINUTES OFFICE 18375 JUAN JOSES CODYAD PINEDA OUTPATIEN 0 0 CLINIC T VISIT 15 MINUTES OFFICE 07369 JUAN JOSES CODYAD PINEDA OUTPATIEN 0 0 CLINIC T VISIT 25 MINUTES EMERGENCY 41905 [place] [facility] DEPARTMEN T VISIT MODERATE SEVERITY [facility] [place] [facility] OUTPATIEN T EMERGENCY 24498 THANIA MCCORMICK 0 0 [facility]IVER [facility] T VISIT LOW/MODER SEVERITY OFFICE 51368 ALEC TRISTAN ASM OUTPATIEN 0 0 CLINIC T VISIT 15 MINUTES HOSPITAL [facility] - 0 0 AN OUTPATIEN REGIONAL T MEDICAL OFFICE 71183 ALEC TRISTAN PINEDA OUTPATIEN 0 0 CLINIC T VISIT 15 MINUTES OFFICE 09947 ALEC TRISTAN PINEDA OUTPATIEN 0 0 CLINIC T VISIT 15 MINUTES OFFICE 41719 ALEC TRISTAN PINEDA OUTPATIEN 0 0 CLINIC T VISIT 15 MINUTES PERIODIC 86766 REJI MCCORMICK, PREVENTIV 0 0 PHYSICIAN KIKI MEDEL EST KARON PATIENT 18-39 YRS [facility]PITAL [place] [facility] T [facility] 36199 [facility] JOSE Galvin [facility] T VISIT LOW/MODER SEVERITY EMERGENCY 43025 [place] 0 0 [facility] DEPARTMEN T VISIT MODERATE SEVERITY [facility] [place] [facility] OUTPAT[place] T [place]ER[place]ENCY 23672 [place] 0 0 [facility] DEPARTMEN T VISIT MODERATE SEVERITY [facility] [place] [facility] T [facility] 01744 [facility] 0 0 [facility] HEMANTH Sommers [facility] T VISIT MODERATE SEVERITY OFFICE 98910 UMBERTOSwati HUNTLEYED OUTPATIEN 0 0 NEUMANNS PAB T VISIT EXTENDED 15 H MINUTES OFFICE 91751 REJI ADRYAN, OUTPATIEN 0 0 PHYSICIAN RANDEE MACIEL 30 KARON MINUTES EMERGENCY 65025 THANIA LAZARUS, 0 0 [facility] HEMANTH [facility] T VISIT LOW/MODER SEVERITY EMERGENCY 14119 THANIA NOVOADY, 0 0 RIVER HBP HERIBERTO D [facility] T VISIT LOW/MODER SEVERITY [facility] [place] [facility] OUTPAT[place] T [place]ERGENCY 24244 [place] 0 0 [facility] DEPARTMEN T VISIT MODERATE SEVERITY OFFICE 13632 [facility] CEDE[facility]O OUTPATIEN 0 0 BERT PAB T VISIT EXTENDED 15 H MINUTES [facility] [place] [facility] OUTPATIEN T OFFICE 13805 SARAH NEWMAN 9 9 PHYSICIAN G E T VISIT KARON 10 MINUTES OFFICE 38339 ALCIDES MCGRATH OUTPATIEN 9 9 RENA Olea LORENZO T NEW 45 MINUTES EMERGENCY 94468 THANIA QIU, 9 9 RIVER MED HEMANTH Sommers [facility] T VISIT HIGH/URGE NT SEVERITY EMERGENCY 29594 [place] 9 9 [facility] DEPARTMEN T VISIT MODERATE SEVERITY [facility] [place] [facility] [place] [facility] OUTPAT[facility] T [place]ER[place]ENCY 22601 [place] 9 9 [facility] DEPARTMEN T VISIT MODERATE SEVERITY OFFICE 72110 DAVIDSON CEDEÑOSARAH 9 9 SAVI SAVI T VISIT 15 MINUTES EMERGENCY 32664 THANIA QIU, 9 9 RIVER MED HEMANTH [facility] T VISIT MODERATE SEVERITY OFFICE 16846 SARAH CORCORNA 9 9 HENRRY MEYER T VISIT [facility] 15 CLINIC MINUTES INC EMERGENCY 10771 THANIA QIU, 8 8 RIVER GIANFRANCO [facility] T VISIT HIGH/URGE NT SEVERITY OFFICE 63137 SARAH CLIFFORD 8 8 HENRRY Chiu [facility] 10 CLINIC MINUTES INC PERIODIC 39079 BROOKE ALONSO 8 8 PHYSICIAN KIKI MEDEL EST KARON PATIENT 18-39 YRS OFFICE 16975 LETITIA DONG OUTPATIEN 8 8 EMILI Chiu [facility] 60 MINUTES
--- OUTSIDE RECORDS SUMMARY | 2017-01-06 13:15 | External Medical Summary Rpt | CCD ---
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 VIEWS CV STRS 16667 RICH KESSLER TST 6 [facility] XERS&/OR HOSPITAL RX CONT P ECG I&R ONLY MYOCARDIA 36486 RICH VILLANUEVA L SPECT 6 [facility] MULTIPLE INC INC STUDIES UNCLASSIF J3490 RICH VILLANUEVA IED DRUGS 6 [facility] INC INC CV STRS 02381 RICH KESSLER TST 6 [facility] XERS&/OR HOSPITAL RX CONT P ECG W/O I&R CV STRS 44832 RICH VILLANUEVA TST 6 [facility] XERS&/OR INC INC RX CONT ECG TRCG ONLY ECHO 38387 RICH VILLANUEVA TTHRC R-T 6 [facility] 2D INC INC W/WOM-MOD E COMPL SPEC&[place] [address] RICH VILLANUEVA TROPONIN 6 [facility] QUANTITAT INC INC MASHA ECG 39025 RICH KESSLER ROUTINE 6 [facility] W/LEAST P 12 LDS I&R ONLY ECG 45952 RICH VILLANUEVA ROUTINE 6 [facility] ECG INC INC W/LEAST 12 LDS TRCG ONLY W/O I&R CREATINE 01963 RICH VILLANUEVA KINASE 6 [facility] TOTAL INC INC CREATINE 40349 RICH VILLANUEVA KINASE MB 6 [facility] FRACTION INC INC ONLY UNCLASSIF J3490 RICH VILLANUEVA IED DRUGS 6 [place] [address] RICH VILLANUEVA INFUSION 6 [facility] THERAPY/P INC INC ROPHYLAXI S /DX 1ST TO 1 HR THERAPEUT 82156 RICH VILLANUEVA IC 6 [facility] INJECTION INC INC IV PUSH EACH NEW DRUG RADEX ABD 49703 [place] JOSH COMPL 6 MEDICAL ROSE MARY AQT ABD IMAGING W/S/E/D ASS VIEWS 1 VIEW CH THERAPEUT 15032 RICH VILLANUEVA IC 5 [facility]OS[facility] PROPHYLAC INC INC TIC/DX INJECTION SUBQ/IM THERAPEUT 44914 RICH VILLANUEVA IC 5 [facility]OSP PROPHYLAC INC INC TIC/DX INJECTION SUBQ/IM OPHTH 28851 [facility] MEDICAL 5 ANG ANG XM&EVAL COMPRHNSV ESTAB PT 1/> RADEX 98439 [place] GOME[facility] ALL FOOT 5 MEDICAL COMPLETE IMAGING MINIMUM 3 ASS VIEWS RADIOLOGI 69021 [place] JOSH C EXAM 5 MEDICAL ROSE MARY CHEST 2 IMAGING VIEWS ASS FRONTAL&L ATERAL COMPUTER- 25077 [place] [facility] 5 MEDICAL CELESTINO DETECTION IMAGING ASS SCREENING MAMMOGRAP HY SCREENING G0202 RICH VILLANUEVA 5 [facility] MAMMOGRAP INC INC HY VAL INCL CAD WHEN PERFORMD HEMOGLOBI 81220 RICH VILLANUEVA N 4 [facility]OS[facility] GLYCOSYLA INC INC TREVON A1C BLOOD 48731 RICH VILLANUEVA COUNT 4 [facility] COMPLETE INC INC AUTO&AUTO DIFRNTL WBC COMPREHEN 03887 RICH VILLANUEVA SIVE 4 [facility] METABOLIC INC INC PANEL SPLINT S8451 [facility] PREFABRIC 4 PHYSICIAN PHYSICIAN ATED S GROUP S GROUP WRIST OR ANKLE DETERMINA 95902 SCIFRES SCIFRES TION 3 ANG ANG REFRACTIV E STATE OPHTH 85934 SCIFRES SCIFRES MEDICAL 3 ANG ANG XM&EVAL COMPRE NEW PT 1/> VST RADIOLOGI 51389 [facility] VILLA RICALis JOSH C 3 MEDICAL ROSE MARY EXAMINATI IMAGING ON KNEE 3 ASS VIEWS THERAPEUT 05707 RICH VILLANUEVA IC 3 [facility] MEM HOSP PROPHYLAC INC INC TIC/DX INJECTION SUBQ/IM THERAPEUT 93444 [facility] IC 3 MED CTR, MED CTR, PROPHYLAC ATTN: ATTN: TIC/DX DENE DENE INJECTION SUBQ/IM RADEX 35283 [place] JOSH FOOT 3 MEDICAL ROSE MARY COMPLETE IMAGING MINIMUM 3 ASS VIEWS THERAPEUT 98184 [facility] IC 3 MED CTR, MED CTR, PROPHYLAC ATTN: ATTN: TIC/DX DENE DENE INJECTION SUBQ/IM RADEX 11246 [place] WALLY SPINE 3 RIVER HBP ISSA LUMBOSACR LLC AL 2/3 VIEWS RADIOLOGI 69500 [place] WALLY C 3 RIVER HBP ISSA EXAMINATI LLC ON PELVIS 1/2 VIEWS THERAPEUT 68454 RICH VILLANUEVA IC 2 [facility] INJECTION INC INC IV PUSH EACH NEW DRUG RADIOLOGI 81500 RADIOLOGY NEILS DUY C EXAM 2 CHEST 2 ASSOCIATE VIEWS S OF [facility] FRONTAL&L ATERAL RADIOLOGI 22646 [place] JOSH C EXAM 2 MEDICAL ROSE MARY CHEST 2 IMAGING VIEWS ASS FRONTAL&L ATERAL PRESSURIZ 73607 RICH FLANNERYON ED/NONPRE 2 [facility] HOSP SSURIZED INC INC INHALATIO N TREATMENT RADEX HIP 98120 [facility] [place] MCQUAIDE 2 RADIOLOGY ANGIE UNILATERA L COMPLETE MINIMUM 2 VIEWS RADEX 89123 [facility] [place] SPINE 2 RADIOLOGY ANGIE LUMBOSACR AL MINIMUM 4 VIEWS RADIOLOGI 51989 [facility] [place] CHI C EXAM 2 RADIOLOGY TORY CHEST 2 VIEWS FRONTAL&L ATERAL OPHTH 55542 [facility] [address] XM&EVAL COMPRE NEW PT 1/> VST DETERMINA [address] [place] TION [address] REFRACTIV E STATE APPL 46568 LUCRECIA SINGER MODALITY 2 KYRIE KYRIE 1/> AREAS ELEC STIMJ UNATTENDE D RADEX 30496 LUCRECIA SINGER SPINE 2 KYRIE KYRIE LUMBOSACR AL 2/3 VIEWS CHIROPRAC 70353 LUCRECIA SINGER TIC 2 KYRIE KYRIE MANIPLTV TX EXTRASPIN AL 1/> REGION CHIROPRAC 40209 LUCRECIA SINGER TIC 2 KYRIE KYRI[place] MANIPULAT MAS[place] SPINAL 3-4 REGIONS RADEX 15552 LUCRECIA SINGER SPINE 2 KYRIE KYRIE CERVICAL 2 OR 3 VIEWS RADEX 53320 [facility] FOREARM 2 2 MED CTR, MED CTR, VIEWS ATTN: ATTN: ARVIND SAMUELS RADEX HIP 10627 [facility] 2 MED CTR, MED CTR, UNILATERA ATTN: ATTN: Ric SAMUELS COMPLETE MINIMUM 2 VIEWS COMPREHEN 55707 [facility] SIVE 2 MED CTR, MED CTR, METABOLIC ATTN: ATTN: PANEL ARVIND SAMUELS COLLECTIO 46436 [facility] N VENOUS 2 MED CTR, MED CTR, BLOOD ATTN: ATTN: VEN[place] [address] [facility] INFLUENZA 2 MED CTR, MED CTR, A/B EACH ATTN: ATTN: ARVIND SAMUELS RADIOLOGI 72250 [facility] C EXAM 2 MED CTR, MED CTR, CHEST 2 ATTN: ATTN: VIEWS ARVIND SAMUELS FRONTAL&L ATERAL BLOOD 09495 [facility] COUNT 2 MED CTR, MED CTR, COMPLETE ATTN: ATTN: AUTO&AUTO DENE DENE DIFRNTL WBC THERAPEUT 47122 [facility] IC 1 MED CTR, MED CTR, PROPHYLAC ATTN: ATTN: TIC/DX DENE DENE INJECTION SUBQ/IM RADEX 26587 WALLY WALLY SPINE 1 ISSA ISSA LUMBOSACR AL 2/3 VIEWS THERAPEUT 86169 [facility] IC 1 MED CTR, MED CTR, PROPHYLAC ATTN: ATTN: TIC/DX DENE DENE INJECTION SUBQ/IM NONEMERG A0120 [facility] TRNSPRT: 1 [facility] Rdio [facility] ACTION P AREA/OTH SYS THERAPEUT 55401 [facility] IC 1 MED CTR, MED CTR, PROPHYLAC ATTN: ATTN: TIC/DX DENE DENE INJECTION SUBQ/IM THERAPEUT 58783 [facility] IC 1 MED CTR, MED CTR, PROPHYLAC ATTN: ATTN: TIC/DX DENE DENE INJECTION SUBQ/IM NONEMERG A0120 [facility] TRNSPRT: 1 [facility] Rdio [facility] ACTION P AREA/OTH SYS RADEX 37052 [facility] HAND 1 MED CTR, MED CTR, MINIMUM 3 ATTN: ATTN: VIEWS DENE DENE RADEX 10898 [facility] SACRUM & 1 RIVER HBP N NOR COCCYX LLC MINIMUM 2 VIEWS RADEX 43788 [facility] SPINE 1 RIVER HBP N NOR LUMBOSACR LLC AL 2/3 VIEWS THERAPEUT 35553 [facility] IC 1 FAMILY GOMEZ PROPHYLAC CLINIC TIC/DX INJECTION SUBQ/IM INJECTION J0696 [facility] FAMILY CEFTRIAXO CLINIC CLINIC NE SODIUM PER 250 MG NONEMERG A0120 [facility] TRNSPRT: 1 [facility] Engagio [facility] MTN ACTION P AREA/[place] [address] [facility] ABDOMINAL 1 MED CTR, MED CTR, REAL ATTN: ATTN: TIME DENE DENE W/IMAGE LIMITED URNLS DIP 56029 [place] [facility] 1 MED CTR, MED CTR, STICK/TAB ATTN: ATTN: LET DENE MARIA DE REAGENT AUTO MICROSCOP Y THROMBOPL 21189 [facility] ASTIN 1 MED CTR, MED CTR, TIME ATTN: ATTN: PARTIAL DENE DENE PLASMA/WH OLE BLOOD RADIOLOGI 48497 [facility] [place] [facility] C EXAM 1 MED CTR, MED CTR, CHEST 2 ATTN: ATTN: VIEWS DENE DENDonald FRONTAL&L ATERAL COMPREHEN 02303 [facility] [place] [facility] SIVE 1 MED CTR, MED CTR, METABOLIC ATTN: ATTN: PANEL DENE DENDonald COLLECTIO 40606 [facility] [place] [facility] N VENOUS 1 MED CTR, MED CTR, BLOOD ATTN: ATTN: VENIPUNCT DENDonald SAMUELS URE PROTHROMB 23850 [facility] [place] [facility] IN TIME 1 MED CTR, MED CTR, ATTN: ATTN: DENE DENE ECG 31429 [facility] [place] [facility] ROUTINE 1 MED CTR, MED CTR, ECG ATTN: ATTN: W/LEAST DENE DENE 12 LDS TRCG ONLY W/O I&R ECHO 16783 [facility] [place] [facility] TTHRC R-T 1 MED CTR, MED CTR, 2D ATTN: ATTN: W/WOM-MOD DENE DENE E COMPL SPEC&COLR D BLOOD 85096 [facility] [place] [facility] COUNT 1 MED CTR, MED CTR, COMPLETE ATTN: ATTN: AUTO&AUTO DENE DENE DIFRNTL WBC INJECTION J0696 [facility] FAMILY FAMILY CEFTRIAXO CLINIC CLINIC NE SODIUM PER 250 MG THERAPEUT 99616 [facility] 1 FAMILY GOMEZ PROPHYLAC CLINIC TIC/DX INJECTION SUBQ/IM SEDIMENTA 28406 [facility] [place] [facility] TION RATE 1 MED CTR, MED CTR, RBC ATTN: ATTN: NON-AUTOM DENE MARIA DE ATED COLLECTIO 35149 [facility] [place] [facility] N VENOUS 1 MED CTR, MED CTR, BLOOD ATTN: ATTN: VENIPUNCT ARVIND SAMUELS URE DNA 70470 [place] [facility] RIVER ANTIBODY 1 MED CTR, MED CTR, NIGHTMUTE/DO ATTN: ATTN: UBDENNIS SAMUELS STRANDED ANTINUCLE 73015 [place] [facility] R[facility] AR 1 MED CTR, MED CTR, ANTIBODIE ATTN: ATTN: S DADA MARIA DE DENE CYCLIC 21453 [place] [facility] CITRULLIN 1 MED CTR, MED CTR, ATED ATTN: ATTN: PEPTIDE ARVIND DENDonald ANTIBODY EXTRACTAB 08394 [facility] LE 1 MED CTR, MED CTR, NUCLEAR ATTN: ATTN: ANTIGEN ARVIND SAMUELS ANTIBODY ANY METHOD NONEMERG A0120 [facility] TRNSPRT: 1 [facility] Engagio [facility] MTN ACTION P AREA/OTH SYS RADEX 18406 [place] WALLY FOOT 1 RIVER HBP ISSA COMPLETE LLC MINIMUM 3 VIEWS RADEX 20951 [facility] HAND 2 1 MED CTR, MED CTR, VIEWS ATTN: ATTN: DENE DENE WRIST L3908 [facility] HAND 1 ORTHOSIS EXT CONTROL COCK-UP PREFAB NONEMERG A0120 [facility] TRNSPRT: 1 [facility] MTN ACTION P AREA/OTH SYS RADIOLOGI 08673 [facility] C EXAM 1 MED CTR, MED CTR, CHEST 2 ATTN: ATTN: VIEWS DENE DENE FRONTAL&[place] [address] [facility] HEAD/BRAI 1 MED CTR, MED CTR, N W/O ATTN: ATTN: [place] [address] [place] [facility] CERVICAL 1 MED CTR, MED CTR, SPINE W/O ATTN: ATTN: CONTRAST DENE DENE MATERIAL RADEX 06184 [place] [facility] SPINE 1 MED CTR, MED CTR, LUMBOSACR ATTN: ATTN: AL 2/3 DENE DENE VIEWS RADEX 56986 [facility] SHOULDER 1 MED CTR, MED CTR, COMPLETE ATTN: ATTN: MINIMUM 2 DENE DENE VIEWS NONEMERG A0120 [facility] TRNSPRT: 1 [facility] ARE[facility]/OTH SYS NONEMERG A0120 [facility] TRNSPRT: 1 [facility] ACTION [facility] AREA/OTH SYS ANESTHESI 04629 TRI[facility] MULLER A 1 ANESTHESI TORY ANORECTAL A GROUP PS PROCEDURE HEMORRHOI 77823 [facility] JOSE L DECTOMY 1 FAMILY GABY XTRNL 2/> HEALTH SRV AR COLUMN/GR OUP COLLECTIO 42250 [facility] N VENOUS 1 AN AN BLOOD [facility] VENIPUNCT MEDICAL MEDICAL URE BASIC 23737 [facility] METABOLIC 1 AN AN PANEL [facility] CALCIUM [facility] MEDICAL TOTAL NONEMERG A0120 [facility] TRNSPRT: 1 [facility] ACTION [facility] AREA/OTH SYS HEMOGLOBI 24924 CHAESTRELLA MURJAX PINEDA N 1 CLINIC GLYCOSYLA TREVON A1C BLOOD 65292 [facility] COUNT 1 MED CTR, MED CTR, COMPLETE ATTN: ATTN: AUTO&AUTO DENE DENE DIFRNTL WBC URNLS DIP 87095 [facility] 1 MED CTR, MED CTR, STICK/TAB ATTN: ATTN: RUDY SAMUELS [place] [address] [facility] AMYLASE 1 MED CTR, MED CTR, ATTN: ATTN: ARVIND SAMUELS DRUG SCRN 04836 [facility] QUAL CHIEF MEDICAL OFFICER 1 MED CTR, MED CTR, CLASS ATTN: ATTN: NONCHROMO DENE DENE TOGRAPHIC EACH COLLECTIO 07104 [place] [facility] RIVER N VENOUS 1 MED CTR, MED CTR, BLOOD ATTN: ATTN: VENIPUNCT DENE DENE URE COMPREHEN 94499 [facility] SIVE 1 MED CTR, MED CTR, METABOLIC ATTN: ATTN: PANEL DENE DENE ANTIBODY 50034 [facility] HELICOBAC 1 MED CTR, MED CTR, TER ATTN: ATTN: [place] [address] [facility] LIPASE 1 MED CTR, MED CTR, ATTN: ATTN: ARVIND SAMUELS NONEMERG A0120 [facility] TRNSPRT: 0 [facility] MTN ACTION P AREA/OTH SYS ARTHROCEN 03572 ALEC TRISTAN PINEDA TESIS 0 CLINIC ASPIR&/IN J INTERM JT/[place] [address] [employer] GUIDANCE 0 CLINIC CLINIC NEEDLE PLACEMENT IMG S&I NONEMERG A0120 [facility] TRNSPRT: 0 [facility] [employer] [facility] MTN ACTION P AREA/OTH SYS NONEMERG A0120 [facility] TRNSPRT: 0 [facility] MTN ACTION P AREA/OTH SYS NONEMERG A0120 [facility] TRNSPRT: 0 [facility] MINI-[employer]ose[employer]ity [facility] MTN ACTION P AREA/OTH SYS RADEX 13207 APPALACHI APPALACHI RIBS 0 AN AN UNILATERA REGIONAL REGIONAL L 2 VIEWS MEDICAL MEDICAL NONEMERG A0120 [facility] TRNSPRT: 0 [facility] MINI-BUS [facility] MTN ACTION P AREA/OTH SYS INJECTION 03899 ALEC TRISTAN PINEDA 0 CLINIC SINGLE/ML T TRIGGER POINT 1/2 MUSCLES NONEMERG A0120 [facility] TRNSPRT: 0 [facility] Eng[employer]io [facility] [place] ARE[place] [address] [employer] GUIDANCE 0 CLINIC CLINIC NEEDLE PLACEMENT IMG S&I NONEMERG A0120 [facility] TRNSPRT: 0 [facility] Engagio [facility] MTN ACTION P AREA/OTH SYS URNLS DIP 79770 [facility] 0 MED CTR MED CTR STICK/TAB LET REAGENT AUTO MICROSCOP Y BLOOD 25032 [facility] COUNT 0 MED CTR MED CTR SMEAR MCRSCP W/MNL DIFRNTL WBC COUNT IADNA 60457 [facility] 0 Silicon Mitus VIRUS HUMAN AMPLIFIED PROBE TQ CYTP C/V 59807 [facility] AUTO THIN 0 Silicon Mitus LYR PREPJ SCR MNL RESCR PHYS CULTURE 01086 [facility] BACTERIAL 0 MED CTR MED CTR QUANTTATI VE COLONY COUNT URINE COLLECTIO 79533 [facility] N 0 MED CTR MED CTR CAPILLARY BLOOD SPECIMEN BLOOD 12712 [facility] COUNT 0 MED CTR MED CTR COMPLETE AUTOMATED RADEX 82890 [facility] SPINE 0 MED CTR MED CTR LUMBOSACR AL 2/3 VIEWS RADEX 95604 [facility] ANKLE 0 MED CTR MED CTR COMPLETE MINIMUM 3 VIEWS I&D 55912 [facility] LAZARUS, HEMATOMA 0 [place] [facility] HEMANTH J SEROMA/FL LLC UID COLLECTIO N INCISION 37818 [facility] SPADY, THROMBOSE 0 [place] [facility] HERIBERTO D D LLC HEMORRHOI D EXTERNAL RADEX 14160 BREATHIT STANTON, A HAND 0 [facility] MINIMUM 3 IMAGING VIEWS CENTER SERVICES 33140 DAVIDSON, DAVIDSON, PROVIDED 0 SAVI HOU OFFICE OTH/THN REG SCHED HOURS GENERAL 24139 [facility] 0 [employer]us PANEL LIPID 06761 [facility] PANEL 0 Qwite [facility] IAADIADOO 83165 [facility] 9 MED CTR MED CTR STREPTOCO CCUS GROUP A COLLECTIO 17078 [facility] N VENOUS 9 MED CTR MED CTR BLOOD VENIPUNCT URE BLOOD 81086 [facility] COUNT 9 MED CTR MED CTR COMPLETE AUTO&AUTO DIFRNTL WBC CUL BACT 61545 [facility] XCPT 9 MED CTR MED CTR URINE BLOOD/STO OL AEROBIC ISOL CUL BACT 74479 [facility] AEROBIC 9 MED CTR MED CTR ADDL METHS DEFINITIV E EA ISOL SUSCEPTIB 94123 [facility] LTY STDY 9 MED CTR MED CTR ANTIMICRB IAL MICRO/AGA R DILUTJ INCISION 61396 [place] JACE, & 9 RIVER MED MALU W DRAINAGE CTR ABSCESS SIMPLE/SI NGLE MRI BRAIN 45215 GRAM STANTON, A BRAIN 9 RESOURCES R STEM W/O CONTRAST MATERIAL MRI 04227 GRAM STANTON, A SPINAL 9 RESOURCES R CANAL LUMBAR W/O CONTRAST MATERIAL COLLECTIO 66611 MALU WHITTAKER, N VENOUS 9 JONAN SUBIR BLOOD [facility] VENIPUNCT [facility] URE INC THERAPEUT 49016 MALU WHITTAKER, IC 9 JONAN SUBIR PROPHYLAC [facility] TIC/DX CLINIC INJECTION INC SUBQ/IM BLOOD 61678 LAB [facility] COUNT 9 AMERIC AMERIC COMPLETE HOLDING HOLDING AUTO&AUTO DIFRNTL WBC MRI 25029 PHYSICIAN VIRAL SPINAL 9 S MATHIEU D CANAL SERVICES LUMBAR PSC W/O CONTRAST MATERIAL MRI 93806 PHYSICIAN VIRAL SPINAL 9 S MATHIEU D CANAL SERVICES CERVICAL PSC W/O CONTRAST MATRL MRI BRAIN 24193 PHYSICIAN VIRAL BRAIN 9 S MATHIEU D STEM W/O SERVICES CONTRAST PSC MATERIAL THER 92039 MALU Rashid TITUS, PROPH/DX 8 JOCARLOS ELISA J NJX [facility] SUBQ/IM CLINIC INC CYTP 37747 [facility] [place], CERV/VAG 8 [place] INC MAUREEN D AUTO THIN LAYER PREP MNL SCREEN RADIOLOGI 03379 [place] Naomi ROGERS EXAM 8 [facility] OMAR K CHEST 2 CTR VIEWS FRONTAL&L ATERAL OPHTH 94674 [facility] VILLA RICAJENN STACK 8 EYE JELLY P XM&EVAL INSTITUTE COMPRE NEW PT 1/> VST DETERMINA 44287 [facility] VILLA RICASANDI STACK 8 EYE JELLY P REFRACTIV INSTITUTE E STATE GLUC BLD 47013 LETITIA, LETITIA, GLUC MNTR 8 EMILI Bennett DEV CLEARED FDA SPEC HOME USE RADEX 03019 LETITIA, LETITIA, HAND 2 8 EMILI Bennett VIEWS Encounters Encounter Start End Date Code Location Performer Type Date OFFICE 98721 [facility] KELLY OUTPATIEN 7 7 PHYSICIAN T VISIT S GROUP 10 MINUTES HOSPITAL [facility] - 7 7 [facility] T OFF[facility] 16488 [facility] KELLY SMITH 7 7 PHYSICIAN T NEW 30 S GROUP MINUTES EMERGENCY 87022 RICH 7 7 [facility] T VISIT HIGH/URGE NT SEVERITY HOSPITAL RICH - 7 7 [facility] T EMERGENCY 95836 JEREMY LINDSEY 7 7 PHYSICIAN [facility] S, [facility] T VISIT [facility]IGH/URGE NT SEVERITY HOSPITAL RICH - 7 7 [facility] T HOSPITAL RICH - 7 7 [facility] T EMERGENCY 56404 RICH 7 7 [facility] T VISIT LOW/MODER SEVERITY EMERGENCY 39362 JEREMY LINDSEY 7 7 PHYSICIAN [facility], [facility] T VISIT HIGH/URGE NT SEVERITY HOSPITAL RICH - 7 7 [facility] T EMERGENCY [address] [address] [facility] T VISIT HIGH/URGE NT SEVERITY EMERGENCY 52002 RICH 6 6 [facility] T VISIT LOW/MODER SEVERITY EMERGENCY 21107 JEREMY LINDSEY 6 6 PHYSICIAN [facility] T VISIT MODERATE SEVERITY HOSPITAL RICH - 6 6 [facility] T HOSPITAL RICH - 6 6 [facility] T HOSPITAL [facility]ICH - 6 6 [facility] OUT[facility]IEN [facility] T HOSPITAL [facility]ICH - 6 6 [facility] T EMERGENCY [address] [facility] T VISIT LOW/MODER SEVERITY EMERGENCY 70042 JEREMY BUSH DEPT 6 6 PHYSICIAN U CELESTINO [facility]ISIT [facility]AT FUNCJ EMERGENCY 11093 RICH 6 6 [facility] DEPARTMEN INC T VISIT LOW/MODER SEVERITY EMERGENCY 38426 JEREMY ECHEVERRIA 6 6 PHYSICIAN DEPARTMEN S, PLL[facility] T VISIT MODERATE SEVERITY HOSPITAL RICH - 6 6 [facility] OUT[facility] T HOSPITAL RICH - 6 6 [facility] OUTPATIEN INC T EMERGENCY 73549 RICH 6 6 [facility] DEPARTMEN INC T VISIT MODERATE SEVERITY EMERGENCY 04576 JEREMY LINDSEY 6 6 PHYSICIAN AGUSTO DEPARTMEN S, [facility] T VIS[facility] HIGH/URGE NT SEVERITY EMERGENCY 21874 JEREMY WAGONER 6 6 PHYSICIAN DEPARTMEN S, [facility] T VISIT HIGH/URGE NT SEVERITY EMERGENCY 16688 RICH 6 6 [facility] DEPARTMEN INC T VISIT LOW/MODER SEVERITY HOSPITAL RICH - 6 6 [facility] OUTPATIEN INC T HOSPITAL RICH - 5 5 [facility] OUTPATIEN INC T EMERGENCY 83499 JEREMY WAGONER 5 5 PHYSICIAN DEPARTMEN S, [facility] T VISIT MODERATE SEVERITY HOSPITAL RICH - 5 5 [facility] OUTPATIEN INC T EMERGENCY 69886 JEREMY LINDSEY 5 5 PHYSICIAN AGUSTO DEPARTMEN S, [facility] T VISIT MODERATE SEVERITY EMERGENCY 50979 RICH 5 5 [facility] DEPARTMEN INC T VISIT LOW/MODER SEVERITY EMERGENCY 23409 JEREMY LEONG 5 5 PHYSICIAN SHELIA DEPARTMEN S, [facility]IS[facility] HIGH/URGE NT SEVERITY HOSPITAL RICH - 5 5 [facility] OUTPATIEN INC T OFFICE [id number] [facility] PRAMOD OUTPATIEN 5 5 PHYSICIAN AGUSTO T VISIT S GROUP 15 MINUTES EMERGENCY 68605 ANSON ANSON 5 5 DATA SUPPORT SPECIALIST DATA SUPPORT SPECIALIST DEPARTMEN T VISIT MODERATE SEVERITY OFFICE 16632 [facility] PRAMOD OUTPATIEN 5 5 PHYSICIAN AGUSTO T VISIT S GROUP 15 MINUTES OFFICE 81820 [facility] PRAMOD OUTPATIEN 5 5 PHYSICIAN AGUSTO T VISIT S GROUP 15 MINUTES EMERGENCY 95098 SOTINGEAN SOTINGEAN 5 5 U CELESTINO U CELESTINO DEPARTMEN T VISIT HIGH/URGE NT SEVERITY OFFICE 83318 SCIFRES SCIFRES OUTPATIEN 5 5 ANG ANG T VISIT 10 MINUTES OFFICE 18803 SCHILLING ELFEGO SCHILLING ELFEGO OUTPATIEN 5 5 T VISIT 10 MINUTES OFFICE 41451 [facility] PRAMOD OUTPATIEN 5 5 PHYSICIAN AGUSTO T VISIT S GROUP 15 MINUTES OFFICE 33810 [facility] PRAMOD OUTPATIEN 5 5 PHYSICIAN AGUSTO T VISIT S GROUP 15 MINUTES OFFICE 46151 [facility] PRAOMD OUTPATIEN 5 5 PHYSICIAN AGUSTO T VISIT S GROUP 15 MINUTES OFFICE 91151 [facility] PRAMOD OUTPATIEN 5 5 PHYSICIAN AGUSTO T VISIT S GROUP 15 MINUTES OFFICE 87109 [facility] PRAMOD OUTPATIEN 5 5 PHYSICIAN AGUSTO T VISIT S GROUP 10 MINUTES HOSPITAL [facility] - 5 5 [facility] OUTPATIEN INC T OFFICE 98377 [facility] PRAMOD OUTPATIEN 4 4 PHYSICIAN AGUSTO T VISIT S GROUP 10 MINUTES OFFICE 14711 [facility] PRAMOD OUTPATIEN 4 4 PHYSICIAN AGUSTO T VISIT S GROUP 10 MINUTES OFFICE 12836 [facility] PRAMOD OUTPATIEN 4 4 PHYSICIAN AGUSTO T VISIT S GROUP 10 MINUTES OFFICE 70122 [facility] PRAMOD OUTPATIEN 4 4 PHYSICIAN AGUSTO T VISIT S GROUP 15 MINUTES EMERGENCY 01047 PRAMOD LINDSEY 4 4 AGUSTO AGUSTO DEPARTMEN T VISIT MODERATE SEVERITY HOSPITAL [facility] - 4 4 [facility] OUTPATIEN INC T OFFICE 29424 [facility] OUTPATIEN 4 4 PHYSICIAN T VISIT S GROUP 15 MINUTES OFFICE 86053 [facility] PRAMOD OUTPATIEN 3 3 PHYSICIAN AGUSTO T VISIT S GROUP 10 MINUTES [facility] [place] [facility], OUTPATIEN ATTN: T DENE EMERGENCY 18297 THANIA DEL RIO, 3 3 RIVER HBP III [facility] T VISIT MODERATE SEVERITY OFFICE 81099 [facility] PETTEY OUTPATIEN 3 3 PHYSICIAN JAM T NEW 30 S GROUP MINUTES Emergency BON Lindsey MD (ER) 3 22:27 3 22:55 [facility] Emergency BON Her MD (ER) 3 12:27 3 13:22 [facility] EMERGENCY 81769 AVIS KAUR 3 3 EMERGENCY DEPARTMEN SERVICES T VISIT HIGH/URGE NT SEVERITY EMERGENCY 17965 R[facility] 3 3 [facility] DEPARTMEN INC T VISIT LOW/MODER SEVERITY HOSPITAL [facility] - 3 3 MEM [facility] OUTPATIEN INC T HOSPITAL [facility] - 3 3 MED CTR, OUTPATIEN ATTN: T DENE EMERGENCY 74522 [facility] 3 3 MED CTR, DEPARTMEN ATTN: T VISIT DENE MODERATE SEVERITY EMERGENCY 52087 THANIA MCCORMICK 3 3 RIVER HBP [facility] T VISIT LOW/MODER SEVERITY Emergency BON Waller (ER) 3 22:40 3 23:40 [facility] RICH - 3 3 MEM HOSP OUTPATIEN INC T EMERGENCY 61649 AVIS LINDSEY 3 3 EMERGENCY AGUSTO [facility] T VISIT MODERATE SEVERITY [facility]OSPITAL [place] [facility] 3 [facility], OUTPATIEN ATTN: T [facility] EMERGENCY 72090 [place] 3 3 [facility], DEPARTMEN ATTN: T VISIT DENE MODERATE SEVERITY EMERGENCY 53340 [place] 3 3 [facility], DEPARTMEN ATTN: T VISIT DENE MODERATE SEVERITY [facility]OSPITAL [place] 3 3 [facility], OUTPATIEN ATTN: T DENE EMERGENCY 30837 AVIS LINDSEY 2 2 EMERGENCY AGUSTO [facility]PART[facility] SERVICES T VISIT HIGH/URGE NT SEVERITY HOSPITAL [facility] - 2 2 [facility] 71649 [place] 2 2 MED CTR, DEPARTMEN ATTN: T VISIT DENE LOW/MODER SEVERITY EMERGENCY 28125 [facility] 2 2 RIVER [facility] T VISIT MODERATE SEVERITY HOSPITAL [facility] - 2 2 MED CTR, OUTPATIEN ATTN: T DENE EMERGENCY 21227 [facility] DEPT 2 2 SERGIO AGUSTO VISIT MED CTR HIGH SEVERITY& THREAT FUNJ EMERGENCY 12602 R[facility] 2 2 MEM H[facility]P DEPARTMEN INC T VISIT LOW/MODER SEVERITY HOSPITAL R[facility] - 2 2 [facility] OUTPATIEN INC T EMERGENCY 21484 DANIEL 2 2 [facility] T VISIT CENTE LIMITED/M INOR PROB EMERGENCY 96473 AVIS QUIÑONES 2 2 EMERGENCY DEPARTMEN SERVICES T VISIT HIGH/URGE NT SEVERITY HOSPITAL DANIEL - 2 2 [facility] CENT[facility] OFFICE 70704 ALDA ARAUZ [facility] 2 2 ZULUETA JR TREMAINE T NEW 30 MD PLLC MINUTES HOSPITAL [place] 2 2 [facility], OUTPATIEN ATTN: T [facility] EMERGENCY 26601 [place] 2 2 [facility] CTR, DEPARTMEN ATTN: T VISIT DENE MODERATE SEVERITY OFFICE 79383 LUCRECIA SINGER OUTPATIEN 2 2 KY[place] T NEW 30 MINUTES HOSPITAL [place] 2 2 [facility], OUTPATIEN ATTN: T DENE EMERGENCY 02021 [place] 2 2 [facility] CTR, DEPARTMEN ATTN: T VISIT DENE MODERATE SEVERITY EMERGENCY 72975 [place] 2 2 [facility] CTR, DEPARTMEN ATTN: T VISIT DENE LIMITED/M INOR PROB [facility]OSPITAL [place] - 2 2 [facility] CTR, OUTPATIEN ATTN: T DENE EMERGENCY 80533 [place] 2 2 [facility] CTR, DEPARTMEN ATTN: T VISIT DENE MODERATE SEVERITY [facility]OSPITAL [place] 2 2 [facility], OUTPATIEN ATTN: T [facility] [place] 2 2 [facility] CTR, OUTPATIEN ATTN: T DENE EMERGENCY 15033 [facility] 2 2 RIVER HBP ELIEL [facility] T VISIT LOW/MODER SEVERITY EMERGENCY 23016 [place] 2 2 [facility] CTR, DEPARTMEN ATTN: T VISIT DENE HIGH/URGE NT SEVERITY EMERGENCY 86137 [place] 2 2 [facility] CTR, DEPARTMEN ATTN: T VISIT DENE MODERATE SEVERITY [facility]PITAL [place] 2 2 [facility], OUTPATIEN ATTN: T [facility] [place] 1 1 [facility] CTR, OUTPATIEN ATTN: T [facility] EMERGENCY 57129 [place] 1 1 [facility] CTR, DEPARTMEN ATTN: T VISIT DENE LOW/MODER SEVERITY EMERGENCY 46096 THANIA MCCORMICK 1 1 RIVER HB [facility] T VISIT MODERATE SEVERITY EMERGENCY 14533 NATTY LUZ 1 1 ELIEL JULIAN [facility] T VISIT LOW/MODER SEVERITY [facility] [place] 1 1 [facility] CTR, OUTPATIEN ATTN: T DENE EMERGENCY 53890 [place] 1 1 [facility] CTR, DEPARTMEN ATTN: T VISIT DENE MODERATE SEVERITY [facility] [place] 1 1 [facility] CTR, OUTPATIEN ATTN: T DENE EMERGENCY 34488 GUILLERMO JOSE ANGEL GUILLERMO JOSE ANGEL 1 1 DEPARTMEN T VISIT MODERATE SEVERITY OFFICE 15814 [facility]ART & OUTPATIEN 1 1 VASCULAR T NEW 45 SPECIALIS MINUTES TS OFFICE 74696 HEART & OUTPATIEN 1 1 VASCULAR T VISIT SPECIALIS 25 TS MINUTES OFFICE 89119 CHAVIES MURAD PINEDA OUTPATIEN 1 1 CLINIC T VISIT 25 MINUTES EMERGENCY 18401 NATTY LUZ 1 1 ELIEL JULIAN [facility] T VISIT LOW/MODER SEVERITY [facility] [place] 1 1 [facility] CTR, OUTPATIEN ATTN: T DENE EMERGENCY 40940 [place] 1 1 [facility] CTR, DEPARTMEN ATTN: T VISIT DENE MODERATE SEVERITY EMERGENCY [place] 1 1 [facility] CTR, DEPARTMEN ATTN: T VISIT DENE MODERATE SEVERITY [facility] [place] 1 1 [facility] CTR, OUTPATIEN ATTN: T DENE OFFICE 35880 CHAVIES MURAD PINEDA OUTPATIEN 1 1 CLINIC T VISIT 15 MINUTES EMERGENCY 20188 [place] 1 1 [facility] CTR, DEPARTMEN ATTN: T VISIT DENE MODERATE SEVERITY [facility] [place] 1 1 [facility] CTR, OUTPATIEN ATTN: T DENE EMERGENCY 10260 THANIA MCCORMICK 1 1 RIVER HBP [facility] T VISIT HIGH/URGE NT SEVERITY OFFICE 06757 ALEC TRISTAN PINEDA OUTPATIEN 1 1 CLINIC T VISIT 25 MINUTES OFFICE 83364 ALEC TRISTAN PINEDA OUTPATIEN 1 1 CLINIC T VISIT 25 MINUTES EMERGENCY 04131 THANIA LUZ 1 1 RIVER HBP ELIEL [facility] T VISIT HIGH/URGE NT SEVERITY HOSPITAL [place] 1 1 [facility] CTR, OUTPATIEN ATTN: T DENE EMERGENCY 56565 [place] 1 1 [facility] CTR, DEPARTMEN ATTN: T VISIT DENE MODERATE SEVERITY OFFICE 40196 HOMETOWLawrence LESLIE OUTPATIEN 1 1 FAMILY GOMEZ T VISIT CLINIC 25 MINUTES HOSPITAL [place] 1 1 [facility] CTR, OUTPATIEN ATTN: T [facility] [place] - 1 1 MED CTR, OUTPATIEN ATTN: T DENE EMERGENCY 29263 [facility] 1 1 RIVER HBP G [facility] T VISIT LOW/MODER SEVERITY EMERGENCY 54974 [place] 1 1 MED CTR, DEPARTMEN ATTN: T VISIT DENE MODERATE SEVERITY HOSPITAL [place] - 1 1 MED CTR, OUTPATIEN ATTN: T DENE EMERGENCY 43754 [facility] 1 1 RIVER HBP G [facility] T VISIT LOW/MODER SEVERITY [facility] [place] 1 1 [facility] CTR, OUTPATIEN ATTN: T DENE EMERGENCY 29436 [place] 1 1 MED CTR, DEPARTMEN ATTN: T VISIT DENE MODERATE SEVERITY EMERGENCY 58524 [place] GUILLERMO JOSE ANGEL 1 1 RIVER HBP [facility] T VISIT LOW/MODER SEVERITY EMERGENCY 89524 [place] 1 1 [facility] CTR, DEPARTMEN ATTN: T VISIT DENE MODERATE SEVERITY [facility] [place] 1 1 [facility], OUTPATIEN ATTN: T DENE OFFICE 56916 ALEC TRISTAN PINEDA OUTPATIEN 1 1 CLINIC T VISIT 15 MINUTES HOSPITAL [facility] - 1 1 AN OUTPATIEN REGIONAL T MEDICAL OFFICE 32222 ALEC TRISTAN ASM OUTPATIEN 1 1 CLINIC T VISIT 15 MINUTES OFFICE 25362 HAZARD JOSE L OUTPATIEN 1 1 FAMILY GABY T NEW 60 HEALTH MINUTES SRV AR OFFICE 91245 ALEC TRISTAN PINEDA OUTPATIEN 1 1 CLINIC T VISIT 15 MINUTES HOSP[facility] [place] [facility] 1 [facility], OUTPATIEN ATTN: T DENE EMERGENCY 61406 [place] 1 1 [facility] CTR, DEPARTMEN ATTN: T VISIT DENE MODERATE SEVERITY OFFICE 08708 JUAN JOSES CODYAD PINEDA OUTPATIEN 1 1 CLINIC T VISIT 15 MINUTES OFFICE 18276 ALEC ROSSAD PINEDA OUTPATIEN 0 0 CLINIC T VISIT 15 MINUTES OFFICE 27525 JUAN JOSES CODYAD PINEDA OUTPATIEN 0 0 CLINIC T VISIT 15 MINUTES OFFICE 69019 JUAN JOSES CODYAD PINEDA OUTPATIEN 0 0 CLINIC T VISIT 25 MINUTES OFFICE 51125 JUAN JOSES CODYAD PINEDA OUTPATIEN 0 0 CLINIC T VISIT 15 MINUTES OFFICE 49942 JUAN JOSES CODYAD PINEDA OUTPATIEN 0 0 CLINIC T VISIT 25 MINUTES EMERGENCY 30583 [place] 0 0 [facility] DEPARTMEN T VISIT MODERATE SEVERITY [facility] [place] [facility] 0 [facility] CTR OUTPATIEN T EMERGENCY 10992 THANIA MCCORMIKC 0 0 RIVER HBP [facility] T VISIT LOW/MODER SEVERITY OFFICE 29366 ALEC TRISTAN ASM OUTPATIEN 0 0 CLINIC T VISIT 15 MINUTES HOSPITAL APPALACHI - 0 0 AN OUTPATIEN REGIONAL T MEDICAL OFFICE 83535 ALEC TRISTAN PINEDA OUTPATIEN 0 0 CLINIC T VISIT 15 MINUTES OFFICE 46297 ALEC TRISTAN PINEDA OUTPATIEN 0 0 CLINIC T VISIT 15 MINUTES OFFICE 82665 ALEC TRISTAN PINEDA OUTPATIEN 0 0 CLINIC T VISIT 15 MINUTES PERIODIC 73644 REJI MCCORMICK, PREVENTIV 0 0 PHYSICIAN KIKI MEDEL EST KARON PATIENT 18-39 YRS HOSPITAL [place] - 0 0 MED CTR OUTPATIEN T EMERGENCY 45730 [facility] SANZ, 0 0 RIVER HBP JOSE Galvin [facility] T VISIT LOW/MODER SEVERITY EMERGENCY 97913 [place] 0 0 MED CTR DEPARTMEN T VISIT MODERATE SEVERITY [facility] [place] [facility] 0 0 [facility] CTR OUTPATIEN T EMERGENCY 64461 [place] 0 0 [facility] CTR DEPARTMEN T VISIT MODERATE SEVERITY [facility] [place] 0 0 [facility] CTR OUTPATIEN T EMERGENCY 11601 [facility] 0 0 RIVER HBP HEMANTH Sommers [facility] T VISIT MODERATE SEVERITY OFFICE 23838 UMBERTOSwati HUNTLEYED OUTPATIEN 0 0 NEUMANNS PAB T VISIT EXTENDED 15 H MINUTES OFFICE 57224 REJI ADRYAN, OUTPATIEN 0 0 PHYSICIAN RANDEE MACIEL 30 KARON MINUTES EMERGENCY 78535 THANIA LAZARUS, 0 0 RIVER HBP HEMANTH Sommers [facility] T VISIT LOW/MODER SEVERITY EMERGENCY 22942 THANIA NOVOADY, 0 0 RIVER HBP HERIBERTO D [facility] T VISIT LOW/MODER SEVERITY [facility] [place] [facility] 0 0 [facility] CTR OUTPATIEN T EMERGENCY 56070 [place] 0 0 [facility] CTR DEPARTMEN T VISIT MODERATE SEVERITY OFFICE 37340 [facility] RE[facility] CEDEÑO OUTPATIEN 0 0 BERT PAB T VISIT EXTENDED 15 H MINUTES [facility]OSP[facility] [place] [facility] 9 9 [facility] CTR OUTPATIEN T OFFICE 54073 SARAH NEWMAN 9 9 PHYSICIAN G E T VISIT KARON 10 MINUTES OFFICE 74503 ALCIDES MCGRATH OUTPATIEN 9 9 RENA Olea LORENZO T NEW 45 MINUTES EMERGENCY 54314 THANIA QIU, 9 9 RIVER MED HEMANTH Sommers [facility] T VISIT HIGH/URGE NT SEVERITY EMERGENCY 08320 [place] 9 9 [facility] CTR DEPARTMEN T VISIT MODERATE SEVERITY [facility] [place] [facility] 9 [facility] OUTPATIEN T [facility] [place] [facility] 9 9 [facility] CTR OUTPATIEN T EMERGENCY 84933 [place] 9 9 [facility] CTR DEPARTMEN T VISIT MODERATE SEVERITY OFFICE 38256 DAVIDSON CEDEÑOSARAH 9 9 SAVI SAVI T VISIT 15 MINUTES EMERGENCY 24598 THANIA QIU, 9 9 RIVER MED HEMANTH Sommers [facility] T VISIT MODERATE SEVERITY OFFICE 23970 SARAH CORCORAN 9 9 HENRRY MEYER T VISIT [facility] 15 CLINIC MINUTES INC EMERGENCY 26233 THANIA QIU, 8 8 RIVER GIANFRANCO Sommers [facility] T VISIT HIGH/URGE NT SEVERITY OFFICE 02874 SARAH CLIFFORD 8 8 HENRRY Chiu VISIT [facility] 10 CLINIC MINUTES INC PERIODIC 60443 BROOKE ALONSO 8 8 PHYSICIAN KIKI MEDEL EST KARON PATIENT 18-39 YRS OFFICE 63050 LETITIA DONG OUTPATIEN 8 8 EMILI Chiu [facility] 60 MINUTES
--- OUTSIDE RECORDS SUMMARY | 2017-01-06 13:27 | External Medical Summary Rpt | CCD ---
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 20 LE Ac DO 95 -1 -2 .0 AZ 18 E ti CE 10 2 6 00 LY 01 GR ve T 60 20 20 6 EG 5- 28 10 10 PH OR 32 5 AR Y 5 MA J TA CY BL ET OF JA CK SO N IB 55 02 02 00 20 10 TH 60 ME Ac UP 11 -0 -1 .0 E 48 RC ti RO 10 2- 1- 00 PL 12 ED ve FE 68 20 20 AZ 2 N 30 10 10 A PA 60 5 PH BL 0 AR O MG MA CY TA BL PL ET LC AL 00 03 28 00 30 30 TH 40 ME Ac DE 78 -1 -2 .0 E 07 RC ti AZ 11 9- 8 PL 73 ED ve OL 07 20 20 AZ 1 AM 71 10 10 A PA 0 PH BL 0. AR O 5 MA MG CY TA PL BL LC ET SI 68 01 01 00 30 30 TH 60 ME Ac MV 18 -2 -2 .0 E 47 RC ti 00 0- 8 PL 59 ED ve TA 47 20 20 AZ 8 TI 90 10 10 A PA N 3 PH BL 20 AR O MA MG CY TA PL BL LC ET DI 16 01 01 00 30 15 TH 60 ME Ac CL 57 -1 -2 .0 E 47 RC ti OF [address]- [address] 47 ED ve EN 20 20 20 AZ 2 AC 11 10 10 A PA 1 PH BL SO AR O D MA EC CY 75 PL LC MG TA B DO 00 07 07 00 20 10 [...] 9- 6- 00 PL 50 ED ve DE 00 20 20 AZ 3 ED 10 [...] -T RY MP DS TA BL ET FL 00 05 05 00 30 30 JA 51 GH Ac UO 78 -1 -2 .0 CK 55 OS ti XE 12 1- 1- 00 SO 75 H ve TI 82 20 20 N ADAIR NE 40 09 09 AP BI 1 OT R HC HE L CA 40 RY MG CA PS UL E 00 05 05 00 60 30 JA 51 GH Ac 55 -1 -2 .0 CK 55 OS ti 50 1- 1- 00 SO 74 H ve 36 20 20 N ADAIR 30 09 09 AP BI 5 OT R HE CA RY SM 49 04 04 00 30 10 JA 51 GH Ac 34 -0 -2 .0 CK 31 OS ti NA 80 6- 3- 00 SO 95 H ve SA 02 20 20 N ADAIR L 82 09 09 AP BI SP 7 OT R RA HE Y CA 0. RY 05 % ADAIR 53 04 04 00 20 10 [...] RY TR OL YT E SO LN DE 10 04 04 00 20 5 JA [...] 6- 3- 00 SO 92 H ve AZ 10 20 20 N ADAIR DE 00 09 09 AP BI 2 1 OT R HE MG CA RY CA PS UL E MU 63 04 04 00 30 15 JA 51 GH Ac CI 82 -0 -2 .0 CK 31 OS ti NE 40 6- 3- 00 SO 94 H ve X 05 20 20 N ADAIR D 73 09 09 AP BI ER 6 OT R HE 60 CA 0- RY 60 MG TA BL ET 00 03 03 00 60 30 JA [...] GH Ac AZ 60 -0 -1 .0 AZ 29 OS ti EP 33 5- 5- 00 LY 10 H ve AM 21 20 20 1 ADAIR 5 42 09 09 PH BI 8 AR R MG MA CY TA BL OF ET JA CK SO N AM 00 12 12 00 14 7 FA 65 GH Ac OX 09 -0 -1 .0 AZ 78 OS ti IC 32 5- 8- 00 LY 25 H ve IL 26 20 20 5 ADAIR LI 40 08 08 PH BI N 1 AR R 87 MA 5 CY MG OF TA BL JA ET CK SO N 49 12 12 00 30 30 FA 65 GH Ac 88 -0 -1 .0 AZ 78 OS ti 40 5- 8- 00 LY 25 H ve 21 20 20 3 ADAIR 80 08 08 PH BI 1 AR R MA CY OF JA CK SO N DI 00 12 12 00 60 30 FA 41 GH Ac AZ 60 -0 -1 .0 AZ 27 OS ti EP 33 5- 8- 00 LY 42 H ve AM 21 20 20 0 ADAIR 5 42 08 08 PH BI 8 AR R MG MA CY TA BL OF ET JA CK SO N 49 11 11 00 30 30 FA 65 GH Ac 88 -0 -2 .0 AZ 70 OS ti 40 5- 0- 00 LY 96 H ve 21 20 20 9 ADAIR 90 08 08 PH BI 1 AR R MA CY OF JA CK SO N ES 00 11 11 00 4. 28 FA 65 NANCY Ac TR 37 -0 -2 00 AZ 71 HN ti AD 83 6- 0- 0 LY 28 SO ve IO 35 20 20 5 N L 29 08 08 PH EU TD 9 AR NI S MA CE 0. CY L 1 MG OF /D AY JA CK SO N DI 00 11 11 00 60 30 FA 41 GH Ac AZ 60 -0 -2 .0 AZ 25 OS ti EP 33 5- 0- 00 LY 52 H ve AM 21 20 20 6 ADAIR 5 42 08 08 PH BI 8 AR R MG MA CY TA BL OF ET JA CK SO N PE 00 11 11 00 60 1 FA 65 GH Ac RM 47 -1 -2 .0 AZ 71 OS ti ET 25 0- 0- 00 LY 87 H ve HR 24 20 20 9 ADAIR IN 26 08 08 PH BI 9 AR R 1% MA CY LO TI OF ON JA CK SO N 49 10 10 00 30 30 FA 65 No Ac 88 -0 -2 .0 AZ 63 t ti 40 6- 3- 00 LY 87 Av ve 21 20 20 2 ai 80 08 08 PH la 1 AR bl MA e CY OF JA CK SO N CL 00 10 10 00 60 30 FA 41 No Ac ON 37 -0 -2 .0 AZ 23 t ti AZ 81 6- 3- 00 LY 78 Av ve EP 91 20 20 0 ai AM 01 08 08 PH la 0 AR bl 0. MA e 5 CY MG OF TA BL JA ET CK SO N DO 00 09 09 [...] 65 No Ac 86 -1 -2 .0 AZ 59 t ti 80 7- 6- 00 LY 63 Av ve 05 20 20 8 ai 63 08 08 PH la 0 AR bl MA e CY OF JA CK SO N 00 09 09 00 60 30 FA 65 No Ac 04 -1 -2 .0 AZ 59 t ti 50 7- 6- 00 LY 63 Av ve 64 20 20 6 ai 16 08 08 PH la 5 AR bl MA e CY OF JA CK SO N 63 09 09 00 30 15 FA 65 No Ac 82 -1 -2 .0 AZ 59 t ti 40 7- 6- 00 LY 63 Av ve 05 20 20 7 ai 64 08 08 PH la 0 AR bl MA e CY OF JA CK SO N CL 00 08 08 00 60 30 FA 41 No Ac ON 37 -1 -2 .0 AZ 20 t ti AZ 81 8- 8- 00 LY 81 Av ve EP 91 20 20 1 ai AM 21 08 08 PH la 1 0 AR bl MA e MG CY TA OF BL ET JA CK SO N DE 00 07 08 00 30 30 FA 65 No Ac EM 04 -1 -0 .0 AZ 45 t ti AR 61 6- 1- 00 LY 94 Av ve IN 10 20 20 8 ai 38 08 08 PH la 0. 1 AR bl 9 MA e MG CY TA OF BL ET JA CK SO N CL 00 07 08 00 60 30 FA 41 No Ac ON 37 -1 -0 .0 AZ 19 t ti AZ 81 6- 1- 00 LY 04 Av ve EP 91 20 20 7 ai AM 21 08 08 PH la 1 0 AR bl MA e MG CY TA OF BL ET JA CK SO N CL 00 06 07 00 60 30 FA 41 No Ac ON 37 -1 -0 .0 AZ 17 t ti AZ 81 8- 3- 00 LY 58 Av ve EP 91 20 20 1 ai AM 21 08 08 PH la 1 0 AR bl MA e MG CY TA OF BL ET JA CK SO N 00 05 05 00 28 7 FA 65 No Ac 17 -1 -2 .0 AZ 34 t ti 24 4- 2- 00 LY 09 Av ve 07 20 20 5 ai 47 08 08 PH la 0 AR bl MA e CY OF JA CK SO N 00 04 05 [...] CA RY TA BL ET CL 00 04 04 00 60 30 [...] PH bl AR e M 17 81 00 01 03 00 30 30 RI 64 No Ac 09 -1 -2 .0 TE 44 t ti 31 8- [...] MG M 17 TA 81 BL ET Procedures Procedure DOS Code Location Performer Comment RADEX 67445 [place] [facility] ELBOW 7 MEDICAL COMPLETE IMAGING MINIMUM 3 ASS VIEWS APPLICATI 92196 [facility] ON LONG 7 PHYSICIAN PHYSICIAN ARM S GROUP S GROUP SPLINT SHOULDER HAND RADEX 65600 [facility] ELBOW 7 [facility] COMPLETE INC INC MINIMUM 3 VIEWS APPLICATI 01957 [facility] ON LONG 7 [facility] ARM INC INC SPLINT SHOULDER HAND UNCLASSIF J3490 [facility] IED DRUGS 7 [facility] INC INC THERAPEUT 02097 [facility] IC 7 [facility] INJECTION [place] [address] [facility] INFUSION 7 [facility] THERAPY/P INC INC ROPHYLAXI S /DX 1ST TO 1 HR UNCLASSIF J3490 [facility] IED DRUGS 7 [facility] INC INC RADEX 58925 [facility] FOREARM 2 7 [facility] VIEWS INC INC UNCLASSIF J3490 [facility] IED DRUGS 7 [facility] INC INC THERAPEUT 40925 [facility] IC 7 [facility] INJECTION [place] [address] [facility] INFUSION 7 [facility] THERAPY/P INC INC ROPHYLAXI S /DX 1ST TO 1 HR UNCLASSIF J3490 [facility] IED DRUGS 6 [facility] INC INC CRTCHS E0114 [facility]ARM 6 TECHNOLOG TECHNOLOG OTH THAN IES INC IES INC WOOD PAIR PAD TIP&HNDGR IP RADEX 81649 RICH RICH FOOT 6 [facility] COMPLETE INC INC MINIMUM 3 VIEWS RADEX 78018 RICH FLANNERYON ANKLE 6 [facility] COMPLETE INC INC MINIMUM 3 VIEWS CV STRS 23825 RICH KESSLER TST 6 [facility] XERS&/OR HOSPITAL RX CONT P ECG I&R ONLY MYOCARDIA 49070 R[facility] VILLANUEVA L SPECT 6 [facility] HOSP MULTIPLE INC INC STUDIES UNCLASSIF J3490 R[facility] IED DRUGS 6 [facility] INC INC CV STRS 21244 RICH KESSLER TST 6 [facility] XERS&/OR HOSPITAL RX CONT P ECG W/O I&R CV STRS 95072 R[facility] VILLANUEVA TST 6 [facility] XERS&/OR INC INC RX CONT ECG TRCG ONLY ECHO 69803 R[facility] VILL[facility] TTHRC R-T 6 [facility] HOSP 2D INC INC W/WOM-MOD E COMPL SPEC&COLR D ECG 52139 RICH KESSLER ROUTINE 6 [facility] W/LEAST P 12 LDS I&R ONLY CREATINE 06175 RICH VILLANUEVA KINASE MB 6 [facility] [place] [address] R[facility] VILL[facility]UE[facility] TROPONIN 6 [facility] QUANTITAT INC INC MASHA CREATINE 50802 [facility]ILL[facility] KINASE 6 [facility] TOTAL INC INC ECG 39780 R[facility]ILL[facility] ROUTINE 6 [facility] HOS[facility] ECG INC INC W/LEAST 12 LDS TRCG ONLY W/O I&R THERAPEUT 79976 R[facility] VILLANUEVA IC 6 [facility] HOSP INJECTION INC INC IV PUSH EACH NEW DRUG UNCLASSIF J3490 RICH VILLANUEVA IED DRUGS 6 [place] [address] [facility] V[facility] INFUSION 6 [facility] THERAPY/P INC INC ROPHYLAXI S /DX 1ST TO 1 HR RADEX ABD 09739 [place] [facility] COMPL 6 [facility] [place] [place] AQT ABD IMAGING W/S/E/D ASS VIEWS 1 VIEW CH THERAPEUT 75146 [facility] IC 5 [facility] PROPHYLAC INC INC TIC/DX INJECTION SUBQ/IM THERAPEUT 10570 [facility] IC 5 [facility] PROPHYLAC INC INC TIC/DX INJECTION SUBQ/IM OPHTH 71301 SCIFRES SCIFRES MEDICAL 5 ANG ANG XM&EVAL COMPRHNSV ESTAB PT 1/> RADEX 42248 [place] [facility] ALL FOOT 5 MEDICAL COMPLETE IMAGING MINIMUM 3 ASS VIEWS RADIOLOGI 31272 [place] [facility] C EXAM 5 MEDICAL [place]SE [place] CHEST 2 IMAGING VIEWS ASS FRONTAL&L ATERAL COMPUTER- 41124 [place] BEINE AIDED 5 MEDICAL CELESTINO DETECTION IMAGING ASS SCREENING MAMMOGRAP HY SCREENING G0202 [facility] 5 [facility] MAMMOGRAP INC INC HY VAL INCL CAD WHEN PERFORMD COMPREHEN 78125 [facility] SIVE 4 [facility] METABOLIC INC INC PANEL BLOOD 36440 RICH IVLLANUEVA COUNT 4 [facility] COMPLETE INC INC AUTO&AUTO DIFRNTL WBC HEMOGLOBI 41873 [facility] N 4 [facility]OS[facility] GLYCOSYLA INC INC TREVON A1C SPLINT S8451 [facility] PREFABRIC 4 PHYSICIAN PHYSICIAN ATED S GROUP S GROUP WRIST OR ANKLE OPHTH 05889 SCIFRES SCIFRES MEDICAL 3 ANG ANG XM&EVAL COMPRE NEW PT 1/> VST DETERMINA 14557 SCIFRES SCIFRES TION 3 ANG ANG REFRACTIV E STATE RADIOLOGI 20579 [place] [facility] C 3 MEDICAL ROSE MARY EXAMINATI IMAGING ON KNEE 3 ASS VIEWS THERAPEUT 78290 [facility] IC 3 [facility] PROPHYLAC INC INC TIC/DX INJECTION SUBQ/IM THERAPEUT 03961 [place] IC 3 MED CTR, MED CTR, PROPHYLAC ATTN: ATTN: TIC/DX DENE DENE INJECTION SUBQ/IM RADEX 85659 [facility] FOOT 3 [facility] COMPLETE INC INC MINIMUM 3 VIEWS THERAPEUT 99160 [place] IC 3 MED CTR, MED CTR, PROPHYLAC ATTN: ATTN: TIC/DX DENE DENE INJECTION SUBQ/IM RADIOLOGI 07050 [place] WALLY C 3 RIVER HBP ISSA EXAMINATI LLC ON PELVIS 1/2 VIEWS RADEX 92716 [place] WALLY SPINE 3 RIVER HBP ISSA LUMBOSACR LLC AL 2/3 VIEWS THERAPEUT 18696 [facility] IC 2 [facility] INJECTION INC INC IV PUSH EACH NEW DRUG RADIOLOGI 38038 RADIOLOGY NEILS DUY C EXAM 2 CHEST 2 ASSOCIATE VIEWS S OF [facility] FRONTAL&L ATERAL RADIOLOGI 38292 [place] [facility] C EXAM 2 MEDICAL ROSE MARY CHEST 2 IMAGING VIEWS ASS FRONTAL&L ATERAL PRESSURIZ 85296 [facility]ILL[facility] ED/NONPRE 2 [facility] SSURIZED INC INC INHALATIO N TREATMENT RADEX 64871 [facility] [place] SPINE 2 RADIOLOGY ANGIE LUMBOSACR AL MINIMUM 4 VIEWS RADEX HIP 73342 [facility] [place] 2 RADIOLOGY ANGIE UNILATERA L COMPLETE MINIMUM 2 VIEWS RADIOLOGI 64117 [facility] [place] C EXAM 2 RADIOLOGY TORY CHEST 2 VIEWS FRONTAL&L ATERAL DETERMINA [address] [place] TION [address] REFRACTIV E STATE OPHTH 90355 [place] MEDICAL 2 TER TER XM&EVAL COMPRE NEW PT 1/> VST CHIROPRAC 37598 [facility] SING[facility] TIC 2 [place] MANIPLTV TX EXTRASPIN AL 1/> REGION CHIROPRAC 39326 [facility]ING[facility] TIC 2 [place] MANIPULAT [place] SPINAL 3-4 REGIONS RADEX 01019 [facility] SPINE 2 [place] LUMBOSACR AL 2/3 VIEWS APPL 58155 [facility] MODALITY 2 [place] 1/> AREAS ELEC STIMJ UNATTENDE D RADEX 61715 [facility] S[facility] SPINE 2 [place] CERVICAL 2 OR 3 VIEWS RADEX 09043 [facility] FOREARM 2 2 MED CTR, MED CTR, VIEWS ATTN: ATTN: ARVIND SAMUELS RADEX HIP 59555 [facility] 2 MED CTR, MED CTR, UNILATERA ATTN: ATTN: L ARVIND SAMUELS COMPLETE MINIMUM 2 [place] [address] [facility] INFLUENZA 2 MED CTR, MED CTR, A/B EACH ATTN: ATTN: ARVIND SAMUELS COLLECTIO 75380 [facility] N VENOUS 2 MED CTR, MED CTR, BLOOD ATTN: ATTN: VENIPUNCT ARVIND SAMUELS URE RADIOLOGI 24059 [facility] C EXAM 2 MED CTR, MED CTR, CHEST 2 ATTN: ATTN: VIEWS DENE DENE FRONTAL&L ATERAL COMPREHEN 74974 [facility] SIVE 2 MED CTR, MED CTR, METABOLIC ATTN: ATTN: PANEL DENE DENE BLOOD 20378 [facility] COUNT 2 MED CTR, MED CTR, COMPLETE ATTN: ATTN: AUTO&AUTO DENE DENE DIFRNTL WBC THERAPEUT 70649 [facility] IC 1 MED CTR, MED CTR, PROPHYLAC ATTN: ATTN: TIC/DX DENE DENE INJECTION SUBQ/IM THERAPEUT 16778 [facility] IC 1 MED CTR, MED CTR, PROPHYLAC ATTN: ATTN: TIC/DX DENE DENE INJECTION SUBQ/IM RADEX 85673 [facility] SPINE 1 MED CTR, MED CTR, LUMBOSACR ATTN: ATTN: AL 2/3 DENE DENE VIEWS NONEMERG A0120 [facility] TRNSPRT: 1 [facility] ACTION COMMUNITY MTN ACTION P AREA/OTH SYS THERAPEUT 45116 [place] 1 MED CTR, MED CTR, PROPHYLAC ATTN: ATTN: TIC/DX DENE DENE INJECTION SUBQ/IM THERAPEUT 76583 [facility] IC 1 MED CTR, MED CTR, PROPHYLAC ATTN: ATTN: TIC/DX DENE DENE INJECTION SUBQ/IM NONEMERG A0120 [facility] TRNSPRT: 1 [facility] [employer] [facility]/OTH SYS RADEX 07953 [facility] SPINE 1 MED CTR, MED CTR, LUMBOSACR ATTN: ATTN: AL 2/3 DENE DENE VIEWS RADEX 23824 [facility] SACRUM & 1 MED CTR, MED CTR, COCCYX ATTN: ATTN: MINIMUM 2 DENE DENE VIEWS RADEX 74232 [facility] HAND 1 MED CTR, MED CTR, MINIMUM 3 ATTN: ATTN: VIEWS DENE DENE INJECTION J0696 [facility] CLIN[facility] NE SODIUM PER 250 MG THERAPEUT 65541 [facility] IC 1 FAMILY GOMEZ PROPHYLAC CLINIC TIC/DX INJECTION SUBQ/IM NONEMERG A0120 [facility] TRNSPRT: 1 [facility] [employer] [facility] MTN ACTION P AREA/[place] [address] [facility] WALLY ABDOMINAL 1 RIVER HBP ISSA REAL LLC TIME W/IMAGE LIMITED URNLS DIP 59453 [facility] 1 MED CTR, MED CTR, STICK/TAB ATTN: ATTN: LET DENE DENE REAGENT AUTO MICROSCOP Y THROMBOPL 42105 [facility] ASTIN 1 MED CTR, MED CTR, TIME ATTN: ATTN: PARTIAL DENE DENE PLASMA/WH OLE BLOOD BLOOD 42174 [facility] COUNT 1 MED CTR, MED CTR, COMPLETE ATTN: ATTN: AUTO&AUTO DENE DENE DIFRNTL WBC ECHO 85280 [facility]SE ANGEL TTHRC R-T 1 VASCULAR 2D SPECIALIS W/WOM-MOD TS E COMPL SPEC&COLR D COMPREHEN 74462 [facility] [place] SIVE 1 MED CTR, MED CTR, METABOLIC ATTN: ATTN: ROVERTO SAMUELS RADIOLOGI 20566 [place] [facility] C EXAM 1 RIVER HBP ISSA CHEST 2 LLC VIEWS FRONTAL&L ATERAL COLLECTIO 71182 [facility] [place] N VENOUS 1 MED CTR, MED CTR, BLOOD ATTN: ATTN: VENIPUNCT ARVIND SAMUELS URE PROTHROMB 52683 [facility] [place] IN TIME 1 MED CTR, MED CTR, ATTN: ATTN: ARVIND SAMUELS ECG 73690 [facility] [place] ROUTINE 1 MED CTR, MED CTR, ECG ATTN: ATTN: W/LEAST ARVIND SAMUELS 12 LDS TRCG ONLY W/O I&R THERAPEUT 36957 [facility] IC 1 FAMILY GOMEZ PROPHYLAC CLINIC TIC/DX INJECTION SUBQ/IM INJECTION J0696 [facility] 1 FAMILY FAMILY CEFTRIAXO CLINIC CLINIC NE SODIUM PER 250 MG DNA 08357 [facility] [place] ANTIBODY 1 MED CTR, MED CTR, MIAMI/DO ATTN: ATTN: UBLE ARVIND SAMUELS STRANDED ANTINUCLE 36424 [facility] AR 1 MED CTR, MED CTR, ANTIBODIE ATTN: ATTN: S DADA ARVIND DENE COLLECTIO 92142 [facility] [place] N VENOUS 1 MED CTR, MED CTR, BLOOD ATTN: ATTN: VENIPUNCT ARVIND SAMUELS URE SEDIMENTA 79127 [facility] [place] TION RATE 1 MED CTR, MED CTR, RBC ATTN: ATTN: NON-AUTOM DENE DENE ATED CYCLIC 32315 [facility] CITRULLIN 1 MED CTR, MED CTR, ATED ATTN: ATTN: PEPTIDE DENE DENE ANTIBODY EXTRACTAB 16579 [facility] [place] LE 1 MED CTR, MED CTR, NUCLEAR ATTN: ATTN: ANTIGEN DENE DENE ANTIBODY ANY METHOD NONEMERG A0120 [facility] TRNSPRT: 1 [facility] ACTION COMMUNITY MTN ACTION P AREA/OTH SYS RADEX 11831 [place] FOOT 1 MED CTR, MED CTR, COMPLETE ATTN: ATTN: MINIMUM 3 DENE DENE VIEWS WRIST L3908 [facility] HAND 1 ORTHOSIS EXT CONTROL COCK-UP PREFAB RADEX 54524 [place] [facility] HAND 2 1 RIVER HBP ISSA VIEWS LLC NONEMERG A0120 [facility] TRNSPRT: 1 [facility] [employer] [facility] ACTION [facility] AREA/OTH SYS RADIOLOGI 00135 [facility] C EXAM 1 RIVER HBP N NOR CHEST 2 LLC VIEWS FRONTAL&[place] [address] [facility] HEAD/BRAI 1 RIVER HBP N NOR N W/[place] [address] [place] [facility] CERVICAL 1 RIVER HBP N NOR SPINE W/O LLC CONTRAST MATERIAL RADEX 13313 [facility] SPINE 1 RIVER HBP N NOR LUMBOSACR LLC AL 2/3 VIEWS RADEX 71799 [place] [facility] SHOULDER 1 RIVER HBP N NOR COMPLETE LLC MINIMUM 2 VIEWS NONEMERG A0120 [facility] TRNSPRT: 1 [facility] [employer] [facility] MTN ACTION P AREA/OTH SYS NONEMERG A0120 [facility] TRNSPRT: 1 [facility] [employer] [facility] ACTION [facility] AREA/OTH SYS ANESTHESI 78638 TRIANG[facility] MULLER A 1 ANESTHESI TORY ANORECTAL A GROUP PS PROCEDURE HEMORRHOI 62540 [facility] JOSE L DECTOMY 1 FAMILY GABY XTRNL 2/> HEALTH SRV AR COLUMN/GR OUP BASIC 08665 [facility] METABOLIC 1 AN AN PANEL [facility] CALCIUM MEDICAL MEDICAL TOTAL COLLECTIO 35818 [facility] N VENOUS 1 AN AN BLOOD [facility] VENIPUNCT MEDICAL MEDICAL URE NONEMERG A0120 [facility] TRNSPRT: 1 [facility] Anago [facility] MTN ACTION P AREA/OTH SYS HEMOGLOBI 32854 [facility] TRISTAN PINEDA N 1 CLINIC GLYCOSYLA TREVON A1C URNLS DIP 14332 [place] 1 MED CTR, MED CTR, STICK/TAB ATTN: ATTN: LET ARVIND SAMUELS REAGENT AUTO MICROSCOP Y COLLECTIO 03312 [place] VENOUS 1 MED CTR, MED CTR, BLOOD ATTN: ATTN: V[place] [address] [place] AMYLASE 1 MED CTR, MED CTR, ATTN: ATTN: MARIA DE MARIA DE COMPREHEN [address]00 [place] SIVE 1 MED CTR, MED CTR, METABOLIC ATTN: ATTN: PANEL DENE DEN[place] BLOOD 19601 [place] COUNT 1 MED CTR, MED CTR, COMPLETE ATTN: ATTN: AUTO&AUTO DENE MARIA DE DIFRNTL WBC ANTIBODY 42431 [place] HELICOBAC 1 MED CTR, MED CTR, TER ATTN: ATTN: [place] [address] [facility] LIPASE 1 MED CTR, MED CTR, ATTN: ATTN: ARVIND SAMUELS DRUG SCRN 33219 [place] 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 73468 ALEC MICHAEL GUIDANCE 0 CLINIC CLINIC NEEDLE PLACEMENT IMG S&I NONEMERG A0120 [facility] TRNSPRT: 0 [facility]/OTH SYS NONEMERG A0120 [facility] TRNSPRT: 0 [facility]OTH SYS NONEMERG A0120 [facility] TRNSPRT: 0 [facility]/OTH SYS RADEX 92351 RADIOLOGY HALI VAL RIBS 0 SERVICES UNILATERA L 2 VIEWS NONEMERG A0120 [facility] TRNSPRT: 0 [facility] ACTION [facility] MTN ACTION P AREA/OTH SYS NONEMERG A0120 [facility] ACTION [facility] MT[facility] ACTION P AREA/OTH SYS INJECTION 77289 ALEC TRISTAN PINEDA 0 CLINIC SINGLE/ML T TRIGGER POINT 1/[address] [place] [address] ALEC MICHAEL GUIDANCE 0 CLINIC CLINIC NEEDLE PLACEMENT IMG S&I NONEMERG A0120 [facility] TRNSPRT: 0 [facility] MTN ACTION P AREA/OTH SYS URNLS DIP 33803 [facility] [place] 0 MED CTR MED CTR STICK/TAB LET REAGENT AUTO MICROSCOP Y BLOOD 65318 [facility] [place] COUNT 0 MED CTR MED CTR SMEAR MCRSCP W/MNL DIFRNTL WBC COUNT BLOOD 43398 [facility] [place] COUNT 0 MED CTR MED CTR COMPLETE AUTOMATED COLLECTIO 49194 [facility] N 0 MED CTR MED CTR CAPILLARY BLOOD SPECIMEN CULTURE 52934 [facility] BACTERIAL 0 MED CTR MED CTR QUANTTATI VE COLONY COUNT URINE IADNA 41265 [facility] [facility] [employer] INC VIRUS HUMAN AMPLIFIED PROBE TQ CYTP C/V 80030 [facility] AUT[facility] THIN 0 [facility] LYR PREPJ SCR MNL RESCR PHYS RADEX 72102 [facility] SPINE 0 MED CTR MED CTR LUMBOSACR AL 2/3 VIEWS RADEX 38705 [facility] ANKLE 0 MED CTR MED CTR COMPLETE MINIMUM 3 VIEWS I&D 51542 THANIA LAZARUS, HEMATOMA 0 RIVER HBP HEMANTH J SEROMA/FL LLC UID COLLECTIO N INCISION 15058 [facility] SPADY, THROMBOSE 0 RIVER HBP HERIBERTO D D LLC HEMORRHOI D EXTERNAL RADEX 00423 BREATHIT STANTON, A HAND 0 [facility] MINIMUM 3 IMAGING VIEWS CENTER SERVICES 23981 DAVIDSON CEDEÑO, PROVIDED 0 SAVI HOU OFFICE OTH/THN REG SCHED HOURS GENERAL 86653 [facility] 0 [facility] INC PANEL LIPID 21249 [facility] PANEL 0 [facility] INC COLLECTIO 25070 [facility] N VENOUS 9 MED CTR MED CTR BLOOD VENIPUNCT URE BLOOD 84146 [facility] COUNT 9 MED CTR MED CTR COMPLETE AUTO&AUTO DIFRNTL WBC IAADIADOO 67512 [facility] 9 MED CTR MED CTR STREPTOCO CCUS GROUP A SUSCEPTIB 28251 [facility] LTY STDY 9 MED CTR MED CTR ANTIMICRB IAL MICRO/AGA R DILUTJ INCISION [address]2354 [place] JACE, & 9 RIVER MED MALU W DRAINAGE CTR ABSCESS SIMPLE/SI NGLE CUL BACT 95178 [facility] XCPT 9 MED CTR MED CTR URINE BLOOD/STO OL AEROBIC ISOL CUL BACT 77129 [facility] [facility] [place] [facility] 9 [facility] MED CTR ADDL METHS DEFINITIV E EA ISOL MRI 60313 GRAM STANTON, A SPINAL 9 RESOURCES R CANAL LUMBAR W/O CONTRAST MATERIAL MRI BRAIN 15801 GRAM STANTON, A BRAIN 9 RESOURCES R STEM W/O CONTRAST MATERIAL BLOOD 17847 LAB KARON LAB KARON COUNT 9 AMERIC AMERIC COMPLETE HOLDING HOLDING AUTO&AUTO DIFRNTL WBC COLLECTIO 80032 Lawrence CORCORAN VENOUS 9 JONAN SUBIR BLOOD [facility] VENIPUNCT [facility] URE INC THERAPEUT 78472 MARIAN CORCORAN 9 JONAN SUBIR PROPHYLAC [facility] TIC/DX CLINIC INJECTION INC SUBQ/IM MRI BRAIN 94798 PHYSICIAN STRATTON BRAIN 9 S MATHIEU D STEM W/O SERVICES CONTRAST PSC MATERIAL MRI 76575 PHYSICIAN STRATTON SPINAL 9 S MATHIEU D CANAL SERVICES LUMBAR PSC W/O CONTRAST MATERIAL MRI 76269 PHYSICIAN STRATTON SPINAL 9 S MATHIEU D CANAL SERVICES CERVICAL PSC W/O CONTRAST MATRL THER 46398 MALU Rachid QURESHI, PROPH/DX 8 HENRRY Sommers NJX [facility] SUBQ/IM CLINIC INC CYTP 52451 [facility] [place], CERV/VAG 8 [place] INC MAUREEN Kamar AUTO THIN LAYER PREP MNL SCREEN RADIOLOGI 90935 [facility] NOAHMICAELA C EXAM 8 RIVER MED OMAR K CHEST 2 CTR VIEWS FRONTAL&L ATERAL DETERMINA 67169 [facility] ADELINA TION 8 EYE JELLY P REFRACTIV INSTITUTE E STATE OPHTH 75316 [facility] ADELINA MEDICAL 8 EYE JELLY P XM&EVAL INSTITUTE COMPRE NEW PT 1/> VST RADEX 27854 LETITIA, LETITIA, HAND 2 8 EMILI E EMILI E VIEWS GLUC BLD 22148 LETITIA, LETITIA, GLUC MNTR 8 EMILI E EMILI E DEV CLEARED FDA SPEC HOME USE Encounters Encounter Start End Date Code Location Performer Type Date OFFICE 68102 [facility] MENDOZA OUTPATIEN 7 7 PHYSICIAN T VISIT S GROUP 10 MINUTES HOSPITAL [facility] - 7 7 [facility] OUTPATIEN INC T OFFICE 80811 [facility] MENDOZA OUTPATIEN 7 7 PHYSICIAN T NEW 30 S GROUP MINUTES HOSPITAL RICH - 7 7 [facility] OUTPATIEN INC T EMERGENCY 62686 JEREMY BUSH 7 7 PHYSICIAN [facility] T VISIT HIGH/URGE NT SEVERITY EMERGENCY 32983 RICH 7 7 MEM [facility] DEPARTMEN INC T VISIT HIGH/URGE NT SEVERITY HOSPITAL RICH - 7 7 [facility] OUTPATIEN INC T EMERGENCY 84587 JEREMY BENAVIDEZ 7 7 PHYSICIAN [facility] T VISIT HIGH/URGE NT SEVERITY EMERGENCY 09944 RICH 7 7 [facility] T VISIT LOW/MODER SEVERITY HOSPITAL RCIH - 7 7 MEM H[facility] OUTPATIEN [facility] T EMERGENCY 83646 RICH 7 7 [facility] T VISIT HIGH/URGE NT SEVERITY HOSPITAL RICH - 7 7 [facility] OUTPATIEN [facility] HOSPITAL RICH - 6 6 [facility] OUTPATIEN [facility] T EMERGENCY 36282 RICH 6 6 [facility] T VISIT LOW/MODER SEVERITY EMERGENCY 68221 JEREMY BENAVIDEZ 6 6 [facility]YSICIAN [facility] T VISIT MODERATE SEVERITY HOSPITAL RCIH - 6 6 [facility] RICH - 6 6 [facility] EMERGENCY 20368 RICH 6 6 [facility] T VISIT LOW/MODER SEVERITY EMERGENCY 80190 JEREMY BUSH DEPT 6 6 PHYSICIAN U CELESTINO VISIT [facility] HIGH SEVERITY& THREAT [facility] HOSPITAL RICH - 6 6 [facility] EMERGENCY 04884 RICH 6 6 [facility] T VISIT LOW/MODER SEVERITY HOSPITAL RICH - 6 6 [facility] EMERGENCY 24726 JEREMY ECHEVERRIA 6 6 PHYSICIAN DEPARTMEN S, [facility] T VISIT MODERATE SEVERITY HOSPITAL RICH - 6 6 [facility] OUTPATIEN [facility] T EMERGENCY 71076 JEREMY BENAVIDEZ 6 6 PHYSICIAN [facility] S, [facility] T VISIT HIGH/URGE NT SEVERITY EMERGENCY 02974 RICH 6 6 [facility] T VISIT MODERATE SEVERITY EMERGENCY 65725 RICH 6 6 [facility] T VISIT LOW/MODER SEVERITY HOSPITAL RICH - 6 6 [facility] OUTPATIEN INC T EMERGENCY 44171 JEREMY [facility] 6 6 PHYSICIAN DEPARTMEN S, PLLC T VISIT HIGH/URGE NT SEVERITY HOSPITAL RICH - 5 5 MEM [facility] OUTPATIEN INC T EMERGENCY 92041 J[facility]EMY [facility] 5 5 PHYSICIAN DEPARTMEN S, PLLC T VISIT MODERATE SEVERITY EMERGENCY 12687 RICH 5 5 MEM HOSP DEPARTMEN INC T VISIT LOW/MODER SEVERITY EMERGENCY 50079 JEREMY BENAVIDEZ 5 5 PHYSICIAN AGUSTO [facility]IS[facility] MOD[facility]ATE SEVERITY [facility] RICH - 5 5 [facility] INC T HOSPITAL RICH - 5 5 [facility] OUTPATIEN INC T EMERGENCY 32533 JEREMY LEONG 5 5 PHYSICIAN SHELIA [facility], [facility] T VISIT HIGH/URGE NT SEVERITY OFFICE 82990 [facility] PRAMOD OUTPATIEN 5 5 PHYSICIAN AGUSTO T VISIT S GROUP 15 MINUTES EMERGENCY 81411 ANSON GRIGGS 5 5 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 DEPARTMEN T VISIT MODERATE SEVERITY OFFICE 42370 [facility] PRAMOD OUTPATIEN 5 5 PHYSICIAN AGUSTO T VISIT S GROUP 15 MINUTES OFFICE 52380 [facility] PRAMOD OUTPATIEN 5 5 PHYSICIAN AGUSTO T VISIT S GROUP 15 MINUTES EMERGENCY 00838 SOTINGEAN SOTINGEAN 5 5 U CELESTINO U CELESTINO DEPARTMEN T VISIT HIGH/URGE NT SEVERITY OFFICE 24100 SCIFRES SCIFRES OUTPATIEN 5 5 ANG ANG T VISIT 10 MINUTES OFFICE 64827 SCHILLING ELFEGO SCHILLING ELFEGO OUTPATIEN 5 5 T VISIT 10 MINUTES OFFICE 54865 [facility] PRAMOD OUTPATIEN 5 5 PHYSICIAN AGUSTO T VISIT S GROUP 15 MINUTES OFFICE 33166 [facility] PRAMOD OUTPATIEN 5 5 PHYSICIAN AGUSTO T VISIT S GROUP 15 MINUTES OFFICE 51761 [facility] PRAMOD OUTPATIEN 5 5 PHYSICIAN AGUSTO T VISIT S GROUP 15 MINUTES OFFICE 52764 [facility] PRAMOD OUTPATIEN 5 5 PHYSICIAN AGUSTO T VISIT S GROUP 15 MINUTES OFFICE 89116 [facility] PRAMOD OUTPATIEN 5 5 PHYSICIAN AGUSTO T VISIT S GROUP 10 MINUTES HOSPITAL RICH - 5 5 MEM [facility] OUTPATIEN INC T OFFICE 59332 [facility] PRAMOD OUTPATIEN 4 4 PHYSICIAN AGUSTO T VISIT S GROUP 10 MINUTES OFFICE 33582 [facility] PRAMOD OUTPATIEN 4 4 PHYSICIAN AGUSTO T VISIT S GROUP 10 MINUTES OFFICE 96105 [facility] PRAMDO OUTPATIEN 4 4 PHYSICIAN AGUSTO T VISIT S GROUP 10 MINUTES OFFICE 41198 [facility] PRAMOD OUTPATIEN 4 4 PHYSICIAN AGUSTO T VISIT S GROUP 15 MINUTES EMERGENCY 59600 PRAMOD PRAMOD 4 4 AGUSTO AGUSTO DEPARTMEN T VISIT MODERATE SEVERITY HOSPITAL RICH - 4 4 MEM [facility] OUTPATIEN INC T OFFICE 18771 [facility] OUTPATIEN 4 4 PHYSICIAN T VISIT S GROUP 15 MINUTES OFFICE 94642 [facility] PRAMOD OUTPATIEN 3 3 PHYSICIAN AGUSTO T VISIT S GROUP 10 MINUTES EMERGENCY 94801 THANIA DEL RIO, 3 3 RIVER HBP III LANNY [facility] T VISIT MODERATE SEVERITY HOSPITAL [place] - 3 3 MED CTR, OUTPATIEN ATTN: T DENE OFFICE 18514 [facility] PETTEY OUTPATIEN 3 3 PHYSICIAN JAM T NEW 30 S GROUP MINUTES EMERGENCY 45265 AVIS KAUR 3 3 EMERGENCY DEPARTMEN SERVICES T VISIT HIGH/URGE NT SEVERITY HOSPITAL RICH Sanches 3 3 [facility] OUTPATIEN INC T EMERGENCY 81730 RICH 3 3 [facility] DEPARTMEN INC T VISIT LOW/MODER SEVERITY EMERGENCY 78261 [facility] 3 3 MED CTR, DEPARTMEN ATTN: T VISIT DENE MODERATE SEVERITY EMERGENCY 89755 THANIA MCCORMICK 3 3 RIVER [facility] AAR DEPARTMEN LLC T VISIT LOW/MODER SEVERITY HOSPITAL [facility] - 3 3 MED CTR, OUTPATIEN ATTN: T DENE HOSPITAL RICH - 3 3 [facility] OUTPATIEN INC T EMERGENCY 09334 AVIS BENAVIDEZ 3 3 EMERGENCY [facility] DEPARTMEN SERVICES T VISIT MODERATE SEVERITY HOSPITAL [facility] - 3 3 MED CTR, OUTPATIEN ATTN: T DENE EMERGENCY 15043 [facility] 3 3 MED CTR, DEPARTMEN ATTN: T VISIT DENE MODERATE SEVERITY HOSPITAL [facility] - 3 3 MED CTR, OUTPATIEN ATTN: T DENE EMERGENCY 09310 [facility] 3 3 MED CTR, DEPARTMEN ATTN: T VISIT DENE MODERATE SEVERITY HOSPITAL RICH - 2 2 [facility] OUTPATIEN INC T EMERGENCY 80376 AVIS BENAVIDEZ 2 2 EMERGENCY [facility] DEPARTMEN SERVICES T VISIT HIGH/URGE NT SEVERITY EMERGENCY 04208 [place] JACOBO 2 2 MED CTR, DEPARTMEN ATTN: T VISIT DENE LOW/MODER SEVERITY HOSPITAL [facility] - 2 2 MED CTR, OUTPATIEN ATTN: T DENE EMERGENCY 38799 THANIA MCCORMICK 2 2 RIVER [facility] AAR DEPARTMEN LLC T VISIT MODERATE SEVERITY EMERGENCY 15141 [facility] DEPT 2 2 SERGIO AGUSTO VISIT MED CTR HIGH SEVERITY& THREAT FUNCJ EMERGENCY 39834 RICH 2 2 MEM HOSP DEPARTMEN INC T VISIT LOW/MODER SEVERITY HOSPITAL RICH - 2 2 MEM H[facility] OUTPATIEN INC T EMERGENCY 45874 AVIS LEORA QUIÑONES 2 2 [facility] T VISIT HIGH/URGE NT SEVERITY EMERGENCY 16366 DANIEL 2 2 [facility] T VISIT CENTE LIMITED/M [facility] DANIEL - 2 2 REGIONAL OUTPATIEN MEDICAL T CENTE OFFICE 33381 ALDA ARAUZ OUTPATIEN 2 2 DAVONTE VU TREMAINE T NEW 30 MD PLLC MINUTES EMERGENCY 91039 [place] 2 2 [facility] CTR, [facility] ATTN: T VISIT DENE MODERATE SEVERITY HOSPITAL [place] - 2 2 MED CTR, OUTPATIEN ATTN: T DENE OFFICE 63985 LUCRECIA LUCRECIA OUTPATIEN 2 2 KYRIE KYRIE T NEW 30 MINUTES HOSPITAL [place] - 2 2 MED CTR, OUTPATIEN ATTN: T DENE EMERGENCY 78246 [place] [address] ATTN: T VISIT DENE MODERATE SEVERITY EMERGENCY 39063 [place] 2 2 MED CTR, DEPARTMEN ATTN: T VISIT DENE LIMITED/M [facility] [place] - 2 2 MED CTR, OUTPATIEN ATTN: T DENE HOSPITAL [place] - 2 2 MED CTR, OUTPATIEN ATTN: T DENE EMERGENCY 64333 [place] 2 2 MED CTR, DEPARTMEN ATTN: T VISIT DENE MODERATE SEVERITY HOSPITAL [place] - 2 2 MED CTR, OUTPATIEN ATTN: T DENE EMERGENCY 79454 REGINALis LUZ 2 2 RIVER HBP [facility] T VISIT LOW/MODER SEVERITY EMERGENCY 99058 [place] 2 2 MED CTR, DEPARTMEN ATTN: T VISIT DENE HIGH/URGE NT SEVERITY HOSPITAL [place] - 2 2 MED CTR, OUTPATIEN ATTN: T DENE EMERGENCY 70269 [place] 2 2 [facility] CTR, [facility] ATTN: T VISIT DENE MODERATE SEVERITY EMERGENCY 99002 [place] 1 1 MED CTR, DEPARTMEN ATTN: T VISIT DENE LOW/MODER SEVERITY HOSPITAL [place] - 1 1 MED CTR, OUTPATIEN ATTN: T DENE EMERGENCY 88337 [facility] 1 1 RIVER HB [facility] T VISIT MODERATE SEVERITY EMERGENCY 64796 [place] [address], [facility] ATTN: T VISIT DENE MODERATE SEVERITY HOSPITAL [place] - 1 1 MED CTR, OUTPATIEN ATTN: T DENE EMERGENCY 53467 NATTY LUZ [address] [facility] T VISIT LOW/MODER SEVERITY HOSPITAL [place] - 1 1 MED CTR, OUTPATIEN ATTN: T DENE EMERGENCY 86804 [place] [address], [facility] ATTN: T VISIT DENE MODERATE SEVERITY OFFICE 81167 HEART & OUTPATIEN 1 1 VASCULAR T VISIT SPECIALIS 25 TS MINUTES OFFICE 23713 HEART & OUTPATIEN 1 1 VASCULAR T NEW 45 SPECIALIS MINUTES TS EMERGENCY 51062 [place] [address], [facility] ATTN: T VISIT DENE MODERATE SEVERITY EMERGENCY 02285 NATTY LUZ [address] [facility] T VISIT LOW/MODER SEVERITY HOSPITAL [place] - 1 1 MED CTR, OUTPATIEN ATTN: T DENE OFFICE 11174 ALEC TRISTAN PINEDA OUTPATIEN 1 1 CLINIC T VISIT 25 MINUTES HOSPITAL [place] 1 1 MED CTR, OUTPATIEN ATTN: T DENE EMERGENCY 76620 TITUS TITUS 1 1 G G DEPARTMEN T VISIT MODERATE SEVERITY OFFICE 82470 ALEC TRISTAN PINEDA OUTPATIEN 1 1 CLINIC T VISIT 15 MINUTES EMERGENCY 05167 [place] 1 1 MED CTR, DEPARTMEN ATTN: T VISIT DENE MODERATE SEVERITY EMERGENCY 77114 [facility] 1 1 RIVER HBP AAR [facility] T VISIT HIGH/URGE NT SEVERITY HOSPITAL [place] - 1 1 MED CTR, OUTPATIEN ATTN: T DENE OFFICE 09711 ALEC TRISTAN PINEDA OUTPATIEN 1 1 CLINIC T VISIT 25 MINUTES OFFICE 21160 ALEC TRISTAN PINEDA OUTPATIEN 1 1 CLINIC T VISIT 25 MINUTES EMERGENCY 68611 [facility] 1 1 RIVER HBP ELIEL DEPARTMEN LLC T VISIT HIGH/URGE NT SEVERITY HOSPITAL [facility] - 1 1 MED CTR, OUTPATIEN ATTN: T DENE EMERGENCY 61058 [facility] 1 1 RIVER HBP [facility]PART[facility] T VISIT MODERATE SEVERITY OFFICE 89306 [facility] 1 1 FAMILY GOMEZ T VISIT CLINIC 25 MINUTES HOSPITAL [facility] - 1 1 MED CTR, OUTPATIEN ATTN: T DENE EMERGENCY 20900 [place] 1 1 MED CTR, DEPARTMEN ATTN: T VISIT DENE LOW/MODER SEVERITY HOSPITAL [place] - 1 1 MED CTR, OUTPATIEN ATTN: T DENE HOSPITAL [facility] - 1 1 MED CTR, OUTPATIEN ATTN: T DENE EMERGENCY 71081 THANIA JACE 1 1 RIVER HBP AAR [facility] T VISIT MODERATE SEVERITY EMERGENCY 65010 [place] 1 1 MED CTR, DEPARTMEN ATTN: T VISIT DENE MODERATE SEVERITY HOSPITAL [place] 1 1 MED CTR, OUTPATIEN ATTN: T DENE EMERGENCY 45694 [facility] TITUS 1 1 RIVER HBP G [facility]PART[facility] T VISIT LOW/MODER SEVERITY EMERGENCY 40969 [place] 1 1 MED CTR, DEPARTMEN ATTN: T VISIT DENE MODERATE SEVERITY EMERGENCY 68119 [facility] GUILLERMO JOSE ANGEL 1 1 RIVER HBP [facility] T VISIT LOW/MODER SEVERITY HOSPITAL [place] - 1 1 MED CTR, OUTPATIEN ATTN: T DENE OFFICE 74317 CHAVIES MURAD PINEDA OUTPATIEN 1 1 CLINIC T VISIT 15 MINUTES OFFICE 20162 [facility] M[facility] ASM OUTPATIEN 1 1 CLINIC T VISIT 15 MINUTES HOSPITAL [facility] - 1 1 AN OUTPATIEN [facility] T MEDICAL OFFICE 55808 HAZARD JOSE L OUTPATIEN 1 1 FAMILY GABY T NEW 60 HEALTH MINUTES SRV AR OFFICE 33384 [facility]UR[facility] PINEDA OUTPATIEN 1 1 CLINIC T VISIT 15 MINUTES EMERGENCY 02843 [facility] TITUS 1 1 RIVER HBP G [facility] T VISIT MODERATE SEVERITY [facility]OSPITAL [place] - 1 1 MED CTR, OUTPATIEN ATTN: T DENE OFFICE 69480 CHAVIES MURAD PINEDA OUTPATIEN 1 1 CLINIC T VISIT 15 MINUTES OFFICE 52714 [facility] PINEDA OUTPATIEN 0 0 CLINIC T VISIT 15 MINUTES OFFICE 27990 ALEC TRISTAN PINEDA OUTPATIEN 0 0 CLINIC T VISIT 15 MINUTES OFFICE 23522 ALEC TRISTAN PINEDA OUTPATIEN 0 0 CLINIC T VISIT 25 MINUTES OFFICE 13567 ALEC TRISTAN PINEDA OUTPATIEN 0 0 CLINIC T VISIT 15 MINUTES OFFICE 87029 ALEC TRISTAN PINEDA OUTPATIEN 0 0 CLINIC T VISIT 25 MINUTES HOSPITAL [place] - 0 0 MED CTR OUTPATIEN T EMERGENCY 39083 THANIA MCCORMICK 0 0 RIVER HBP AAR [facility] T VISIT LOW/MODER SEVERITY EMERGENCY 34369 [place] 0 0 MED CTR DEPARTMEN T VISIT MODERATE SEVERITY OFFICE 70541 ALEC TRISTAN ASM OUTPATIEN 0 0 CLINIC T VISIT 15 MINUTES HOSPITAL [place] - 0 0 AN OUTPATIEN REGIONAL T MEDICAL OFFICE 17274 ALEC TRISTAN PINEDA OUTPATIEN 0 0 CLINIC T VISIT 15 MINUTES OFFICE 22950 ALEC TRISTAN PINEDA OUTPATIEN 0 0 CLINIC T VISIT 15 MINUTES OFFICE 67664 ALEC TRISTAN PINEDA OUTPATIEN 0 0 CLINIC T VISIT 15 MINUTES PERIODIC 32714 CHING ALONSOIV 0 0 PHYSICIAN KIKI MEDEL EST KARON PATIENT 18-39 YRS HOSPITAL [place] - 0 0 MED CTR OUTPATIEN T EMERGENCY 20700 [facility] SANZ, 0 0 RIVER HBP JOSE Galvin [facility] T VISIT LOW/MODER SEVERITY HOSPITAL [place] - 0 0 MED CTR OUTPATIEN T EMERGENCY 77649 [place] 0 0 MED CTR DEPARTMEN T VISIT MODERATE SEVERITY EMERGENCY 66479 [place] 0 0 MED CTR DEPARTMEN T VISIT MODERATE SEVERITY HOSPITAL [place] 0 0 MED CTR OUTPATIEN T EMERGENCY 63019 THANIA QIU, 0 0 RIVER HBP HEMANTH Sommers [facility] T VISIT MODERATE SEVERITY OFFICE 82640 [facility] C[facility] OUTPATIEN 0 0 NEUMANNS PAB T VISIT EXTENDED 15 H MINUTES OFFICE 69883 REJI ADRYAN, OUTPATIEN 0 0 PHYSICIAN RANDEE MACIEL 30 KARON MINUTES EMERGENCY 19039 THANIA QIU, 0 0 RIVER HBP HEMANTH Sommers [facility] T VISIT LOW/MODER SEVERITY EMERGENCY 13725 [place] 0 0 MED CTR DEPARTMEN T VISIT MODERATE SEVERITY EMERGENCY 01057 THANIA NOVOAMADELINE, 0 0 RIVER HBP HERIBERTO Galvin [facility] T VISIT LOW/MODER SEVERITY HOSPITAL [place] - 0 0 MED CTR OUTPATIEN T OFFICE 75795 [facility] OUTPATIEN 0 0 NEUMANNS PAB T VISIT EXTENDED 15 H MINUTES OFFICE 35205 REJI CINTHIA QURESHIEN 9 9 PHYSICIAN Donal Chiu VISIT KARON 10 MINUTES HOSPITAL [place] - 9 9 MED CTR OUTPATIEN T OFFICE 42341 ALCIDES MCGRATH OUTPATIEN 9 9 RENA Olea T NEW 45 MINUTES EMERGENCY 73156 THANIA QIU, 9 9 RIVER MED HEMANTH Sommers DEPARTMEN CTR T VISIT HIGH/URGE NT SEVERITY HOSPITAL [place] - 9 9 MED CTR OUTPATIEN T EMERGENCY 09924 THANIA MCCORMICK, 9 9 RIVER MED MALU Olguin DEPARTMEN CTR T VISIT MODERATE SEVERITY HOSPITAL [place] - 9 9 MED CTR OUTPATIEN T EMERGENCY 71443 THANIA MCCORMICK, 9 9 RIVER MED MALU Olguin DEPARTMEN CTR T VISIT MODERATE SEVERITY OFFICE 65410 DAVIDSON CEDEÑO OUTPATIEN 9 9 [facility] T VISIT 15 MINUTES EMERGENCY 57012 THANIA QIU, [address] [facility] HEMANTH Sommers [facility] CTR T VISIT MODERATE SEVERITY OFFICE 81488 SARAH CORCORAN 9 9 HENRRY MEYER T VISIT [facility] 15 CLINIC MINUTES INC OFFICE 53162 SARAH CLIFFORD 8 8 HENRRY ELISA J T VISIT [facility] 10 CLINIC MINUTES [facility] EMERGENCY 42069 THANIA QIU, [address] [facility] HEMANTH Sommers [facility] CTR T VISIT HIGH/URGE NT SEVERITY PERIODIC 08356 BROOKE ALONSO 8 8 PHYSICIAN KIKI MEDEL EST KARON PATIENT 18-39 YRS OFFICE 26349 LETITIA DONG OUTPATIEN 8 8 EMILI Chiu NEW 60 MINUTES
--- OUTSIDE RECORDS SUMMARY | 2017-01-06 13:27 | External Medical Summary Rpt | CCD ---
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 6 [facility] W/LEAST P 12 LDS I&R ONLY CREATINE 08370 RICH VILLANUEVA KINASE MB 6 [facility] [place] [address] RICH VILLANUEVA TROPONIN 6 [facility] HOSP QUANTITAT INC INC MASHA CREATINE 01731 RICH VILLANUEVA KINASE 6 [facility] TOTAL INC INC ECG 91343 RICH VILLANUEVA ROUTINE 6 [facility] ECG INC INC W/LEAST 12 LDS TRCG ONLY W/O I&R THERAPEUT 97292 RICH VILLANUEVA IC 6 [facility]OSP INJECTION INC INC IV PUSH EACH NEW DRUG UNCLASSIF J3490 RICH VILLANUEVA IED DRUGS 6 [place] [address] RICH VILLANUEVA INFUSION 6 [facility] THERAPY/P INC INC ROPHYLAXI S /DX 1ST TO 1 HR RADEX ABD 66457 [place] [facility] COMPL 6 [facility] AQT ABD IMAGING W/S/E/D ASS VIEWS 1 VIEW CH THERAPEUT 55643 RICH VILLANUEVA IC 5 [facility] PROPHYLAC INC INC TIC/DX INJECTION SUBQ/IM THERAPEUT 16962 RICH VILLANUEVA IC 5 [facility] PROPHYLAC INC INC TIC/DX INJECTION SUBQ/IM OPHTH 20669 SCIFRES SCIFRES MEDICAL 5 ANG ANG XM&EVAL COMPRHNSV ESTAB PT 1/> RADEX 67406 [place] GOMEZ ALL FOOT 5 MEDICAL COMPLETE IMAGING MINIMUM 3 ASS VIEWS RADIOLOGI 83856 [place] C EXAM 5 MEDICAL [place]SE M[place] CHEST 2 IMAGING VIEWS ASS FRONTAL&L ATERAL COMPUTER- 35802 [place] BEINE AIDED 5 MEDICAL CELESTINO DETECTION IMAGING ASS SCREENING MAMMOGRAP HY SCREENING G0202 RICH VILLANUEVA 5 [facility] MAMMOGRAP INC INC HY VAL INCL CAD WHEN PERFORMD COMPREHEN 37882 RICH VILLANUEVA SIVE 4 [facility] METABOLIC INC INC PANEL BLOOD 86862 RICH VILLANUEVA COUNT 4 [facility] COMPLETE INC INC AUTO&AUTO DIFRNTL WBC HEMOGLOBI 46790 RICH VILLANUEVA N 4 [facility] GLYCOSYLA INC INC TREVON A1C SPLINT S8451 [facility] PREFABRIC 4 PHYSICIAN PHYSICIAN ATED S GROUP S GROUP WRIST OR ANKLE OPHTH 55824 SCIFRES SCIFRES MEDICAL 3 ANG ANG XM&EVAL COMPRE NEW PT 1/> VST DETERMINA 57651 SCIFRES SCIFRES TION 3 ANG ANG REFRACTIV E STATE RADIOLOGI 39897 [place] [facility] C 3 MEDICAL ROSE MARY EXAMINATI IMAGING ON KNEE 3 ASS VIEWS THERAPEUT 13477 RICH VILLANUEVA IC 3 [facility] PROPHYLAC INC INC TIC/DX INJECTION SUBQ/IM THERAPEUT 09634 [place] IC 3 MED CTR, MED CTR, PROPHYLAC ATTN: ATTN: TIC/DX DENE DENE INJECTION SUBQ/IM RADEX 81458 RICH VILLANUEVA FOOT 3 [facility] COMPLETE INC INC MINIMUM 3 VIEWS THERAPEUT 77848 [place] IC 3 MED CTR, MED CTR, PROPHYLAC ATTN: ATTN: TIC/DX DENE DENE INJECTION SUBQ/IM RADIOLOGI 53414 [place] WALLY C 3 RIVER HBP ISSA EXAMINATI LLC ON PELVIS 1/2 VIEWS RADEX 13798 [place] WALLY SPINE 3 RIVER HBP ISSA LUMBOSACR LLC AL 2/3 VIEWS THERAPEUT 24319 RICH VILLANUEVA IC 2 [facility] INJECTION INC INC IV PUSH EACH NEW DRUG RADIOLOGI 34310 RADIOLOGY NEILS DUY C EXAM 2 CHEST 2 ASSOCIATE VIEWS S [facility] FRONTAL&L ATERAL RADIOLOGI 16744 [place] [facility] C EXAM 2 MEDICAL ROSE MARY CHEST 2 IMAGING VIEWS ASS FRONTAL&L ATERAL PRESSURIZ 75644 RICH VILLANUEVA ED/NONPRE 2 [facility] SSURIZED INC INC INHALATIO N TREATMENT RADEX 14759 [facility] [place] SPINE 2 RADIOLOGY ANGIE LUMBOSACR AL MINIMUM 4 VIEWS RADEX HIP 93348 [facility] [place] 2 RADIOLOGY ANGIE UNILATERA L COMPLETE MINIMUM 2 VIEWS RADIOLOGI 70745 [facility] [place] CHI C EXAM 2 RADIOLOGY TORY CHEST 2 VIEWS FRONTAL&L ATERAL DETERMINA [address] [place] TION [address] REFRACTIV E STATE OPHTH [address]4670 [place] MEDICAL [address] XM&EVAL COMPRE NEW PT 1/> VST CHIROPRAC 84077 LUCRECIA SINGER TIC 2 [facility] MANIPLTV TX EXTRASPIN AL 1/> REGION CHIROPRAC 16910 LUCRECIA SINGER TIC 2 [place] MANIPULAT MASHA [place] SPINAL 3-4 REGIONS RADEX 58303 [facility]CRECIA SINGER SPINE 2 [facility] [place] LUMBOSACR AL 2/3 VIEWS APPL 07702 [facility] S[facility]ER MODALITY 2 [facility] [place] 1/> AREAS ELEC STIMJ UNATTENDE D RADEX 72779 [facility] S[facility]ER SPINE 2 [facility] CERVICAL 2 OR 3 VIEWS RADEX 73833 [facility] FOREARM 2 2 MED CTR, MED CTR, VIEWS ATTN: ATTN: ARVIND SAMUELS RADEX HIP 09992 [facility] 2 MED CTR, MED CTR, UNILATERA ATTN: ATTN: L ARVIND SAMUELS COMPLETE MINIMUM 2 [place] [address] [facility] INFLUENZA 2 MED CTR, MED CTR, A/B EACH ATTN: ATTN: ARVIND SAMUELS COLLECTIO 58562 [facility] N VENOUS 2 MED CTR, MED CTR, BLOOD ATTN: ATTN: VENIPUNCT ARVIND SAMUELS URE RADIOLOGI 15032 [facility] C EXAM 2 MED CTR, MED CTR, CHEST 2 ATTN: ATTN: VIEWS DENE DENE FRONTAL&L ATERAL COMPREHEN 29762 [facility] SIVE 2 MED CTR, MED CTR, METABOLIC ATTN: ATTN: PANEL DENE DENE BLOOD 33128 [facility] COUNT 2 MED CTR, MED CTR, COMPLETE ATTN: ATTN: AUTO&AUTO DENE DENE DIFRNTL WBC THERAPEUT 43207 [facility] IC 1 MED CTR, MED CTR, PROPHYLAC ATTN: ATTN: TIC/DX DENE DENE INJECTION SUBQ/IM THERAPEUT 01926 [facility] IC 1 MED CTR, MED CTR, PROPHYLAC ATTN: ATTN: TIC/DX DENE DENE INJECTION SUBQ/IM RADEX 64915 [facility] SPINE 1 MED CTR, MED CTR, LUMBOSACR ATTN: ATTN: AL 2/3 DENE DENE VIEWS NONEMERG A0120 [facility] TRNSPRT: 1 [facility] ACTION COMMUNITY MTN ACTION P AREA/OTH SYS THERAPEUT 83572 [place] IC 1 MED CTR, MED CTR, PROPHYLAC ATTN: ATTN: TIC/DX DENE DENE INJECTION SUBQ/IM THERAPEUT 94986 [facility] IC 1 MED CTR, MED CTR, PROPHYLAC ATTN: ATTN: TIC/DX DENE DENE INJECTION SUBQ/IM NONEMERG A0120 [facility] TRNSPRT: 1 [facility] [employer] [facility] AREA/OTH SYS RADEX 84592 [facility] SPINE 1 MED CTR, MED CTR, LUMBOSACR ATTN: ATTN: AL 2/3 DENE DENE VIEWS RADEX 29897 [facility] SACRUM & 1 MED CTR, MED CTR, COCCYX ATTN: ATTN: MINIMUM 2 DENE DENE VIEWS RADEX 34620 [facility] HAND 1 MED CTR, MED CTR, MINIMUM 3 ATTN: ATTN: VIEWS DENE DENE INJECTION J0696 [facility]IN[facility] NE SODIUM PER 250 MG THERAPEUT 33103 [facility] IC 1 FAMILY GOMZE PROPHYLAC CLINIC TIC/DX INJECTION SUBQ/IM NONEMERG A0120 [facility] TRNSPRT: 1 [facility] [employer] [facility] MTN ACTION P AREA/[place] [address] [facility] WALLY ABDOMINAL 1 RIVER HBP ISSA REAL LLC TIME W/IMAGE LIMITED URNLS DIP 58971 [facility] 1 MED CTR, MED CTR, STICK/TAB ATTN: ATTN: LET DENE DENE REAGENT AUTO MICROSCOP Y THROMBOPL 78674 [facility] ASTIN 1 MED CTR, MED CTR, TIME ATTN: ATTN: PARTIAL DENE DENE PLASMA/WH OLE BLOOD BLOOD 22553 [facility] COUNT 1 MED CTR, MED CTR, COMPLETE ATTN: ATTN: AUTO&AUTO DENE DENE DIFRNTL WBC ECHO 75952 [facility] JOSE ANGEL TTHRC R-T 1 VASCULAR 2D SPECIALIS W/WOM-MOD TS E COMPL SPEC&COLR D COMPREHEN 38434 [facility] [place] SIVE 1 MED CTR, MED CTR, METABOLIC ATTN: ATTN: ROVERTO SAMUELS RADIOLOGI 77017 [place] [facility] C EXAM 1 RIVER HBP ISSA CHEST 2 LLC VIEWS FRONTAL&L ATERAL COLLECTIO 39529 [facility] [place] [place] N VENOUS 1 MED CTR, MED CTR, BLOOD ATTN: ATTN: VENIPUNCT ARVIND SAMUELS URE PROTHROMB 64588 [facility] [place] [place] IN TIME 1 MED CTR, MED CTR, ATTN: ATTN: ARVIND SAMUELS ECG 23240 [facility] [place] ROUTINE 1 MED CTR, MED CTR, ECG ATTN: ATTN: W/LEAST ARVIND SAMUELS 12 LDS TRCG ONLY W/O I&R THERAPEUT 18194 [facility] IC 1 FAMILY GOMEZ PROPHYLAC CLINIC TIC/DX INJECTION SUBQ/IM INJECTION J0696 [facility] 1 FAMILY FAMILY CEFTRIAXO CLINIC CLINIC NE SODIUM PER 250 MG DNA 30551 [facility] [place] ANTIBODY 1 MED CTR, MED CTR, [place]/DO ATTN: ATTN: UBLE ARVIND SAMUELS STRANDED ANTINUCLE 34664 [facility] AR 1 MED CTR, MED CTR, ANTIBODIE ATTN: ATTN: S DADA ARVIND DENE COLLECTIO 19491 [place] [place] N VENOUS 1 MED CTR, MED CTR, BLOOD ATTN: ATTN: VENIPUNCT ARVIND SAMUELS URE SEDIMENTA 11518 [place] [place] TION RATE 1 MED CTR, MED CTR, RBC ATTN: ATTN: NON-AUTOM DENE DENE ATED CYCLIC 81884 [facility] CITRULLIN 1 MED CTR, MED CTR, ATED ATTN: ATTN: PEPTIDE DENE DENE ANTIBODY EXTRACTAB 73009 [facility] [place] LE 1 MED CTR, MED CTR, NUCLEAR ATTN: ATTN: ANTIGEN DENE DENE ANTIBODY ANY METHOD NONEMERG A0120 [facility] TRNSPRT: 1 [facility] ACTION COMMUNITY MTN ACTION P AREA/OTH SYS RADEX 34613 [place] FOOT 1 MED CTR, MED CTR, COMPLETE ATTN: ATTN: MINIMUM 3 DENE DENE VIEWS WRIST L3908 [facility] 1 ORTHOSIS EXT CONTROL COCK-UP PREFAB RADEX 23120 [place] [facility] HAND 2 1 RIVER HBP ISSA VIEWS LLC NONEMERG A0120 [facility] TRNSPRT: 1 [facility] [employer] [facility] ACTION [facility] AREA/OTH SYS RADIOLOGI 89604 [facility] C EXAM 1 RIVER HBP N NOR CHEST 2 LLC VIEWS FRONTAL&[place] [address] [facility] HEAD/BRAI 1 RIVER HBP N NOR N W/[place] [address] [facility] CERVICAL 1 RIVER HBP N NOR SPINE W/O LLC CONTRAST MATERIAL RADEX 88492 [facility] SPINE 1 RIVER HBP N NOR LUMBOSACR LLC AL 2/3 VIEWS RADEX 20522 [facility] SHOULDER 1 RIVER HBP N NOR COMPLETE LLC MINIMUM 2 VIEWS NONEMERG A0120 [facility] TRNSPRT: 1 [facility] [employer] [facility] MTN ACTION P AREA/OTH SYS NONEMERG A0120 [facility] TRNSPRT: 1 [facility] [employer] [facility] ACTION P AREA/OTH SYS ANESTHESI 79370 TRIANGLE MULLER A 1 ANESTHESI TORY ANORECTAL A GROUP PS PROCEDURE HEMORRHOI 92785 [facility]ZARD JOSE L DECTOMY 1 FAMILY GABY XTRNL 2/> HEALTH SRV AR COLUMN/GR OUP BASIC 33545 [facility] METABOLIC 1 AN AN PANEL REGIONAL REGIONAL CALCIUM MEDICAL MEDICAL TOTAL COLLECTIO 63010 [facility] N VENOUS 1 AN AN BLOOD [facility] VENIPUNCT MEDICAL MEDICAL URE NONEMERG A0120 [facility] TRNSPRT: 1 [facility] [employer] [facility] MTN ACTION P AREA/OTH SYS HEMOGLOBI 69945 ALE[facility] TRISTAN PINEDA N 1 CLINIC GLYCOSYLA TREVON A1C URNLS DIP 11822 [place] 1 MED CTR, MED CTR, STICK/TAB ATTN: ATTN: LET ARVIND SAMUELS REAGENT AUTO MICROSCOP Y COLLECTIO 43266 [place] N VENOUS 1 MED CTR, MED CTR, BLOOD ATTN: ATTN: V[place] [address] [place] AMYLASE 1 MED CTR, MED CTR, ATTN: ATTN: MARIA DE MARIA DE COMPREHEN 12234 [place] SIVE 1 MED CTR, MED CTR, METABOLIC ATTN: ATTN: PANEL DENE DENE BLOOD 38564 [place] COUNT 1 MED CTR, MED CTR, COMPLETE ATTN: ATTN: AUTO&AUTO DENE MARIA DE DIFRNTL WBC ANTIBODY 10490 [place] HELICOBAC 1 MED CTR, MED CTR, TER ATTN: ATTN: [place] [address] [facility] LIPASE 1 MED CTR, MED CTR, ATTN: ATTN: ARVIND SAMUELS DRUG SCRN 78165 [place] 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 AT SURGERY 1 MED CTR, MED CTR, CLASS ATTN: ATTN: NONCHROMO ARVIND SAMUELS TOGRAPHIC EACH NONEMERG A0120 [facility] TRNSPRT: 0 [facility] ACTION P AREA/OTH SYS ARTHROCEN VICENTARILEYMarkos KUN PINEDA TESIS 0 CLINIC ASPIR&/IN J INTERM JT/BURS W/O [facility] 78971 ALEC MICHAEL GUIDANCE 0 CLINIC CLINIC NEEDLE PLACEMENT IMG S&I NONEMERG A0120 [facility] TRNSPRT: 0 [facility] ACTION P AREA/OTH SYS NONEMERG A0120 [facility] TRNSPRT: 0 [facility] ACTION P AREA/OTH SYS NONEMERG A0120 [facility] TRNSPRT: 0 [facility] ACTION P AREA/OTH SYS RADEX 19421 RADIOLOGY HALI VAL RIBS 0 SERVICES UNILATERA L 2 VIEWS NONEMERG A0120 [facility] TRNSPRT: 0 [facility] MINI-BUS ACTION [facility] MTN ACTION P AREA/OTH SYS NONEMERG A0120 [facility] TR[facility]: 0 [facility] MINI-BUS ACTION [facility] MTN ACTION P AREA/OTH SYS INJECTION 59123 ALEC TRISTAN PINEDA 0 CLINIC SINGLE/ML T TRIGGER POINT 1/2 [place] [address] ALEC MICHAEL GUIDANCE 0 CLINIC CLINIC NEEDLE PLACEMENT IMG S&I NONEMERG A0120 [facility] TRNSPRT: 0 [facility] MINI-BUS [facility] MTN ACTION P AREA/OTH SYS URNLS DIP 57840 [facility] [place] 0 MED CTR MED CTR STICK/TAB LET REAGENT AUTO MICROSCOP Y BLOOD 13592 [facility] [place] COUNT 0 MED CTR MED CTR SMEAR MCRSCP W/MNL DIFRNTL WBC COUNT BLOOD 98911 [facility] [place] COUNT 0 MED CTR MED CTR COMPLETE AUTOMATED COLLECTIO 78929 [facility] N 0 MED CTR MED CTR CAPILLARY BLOOD SPECIMEN CULTURE 86400 [facility] BACTERIAL 0 MED CTR MED CTR QUANTTATI VE COLONY COUNT URINE IADNA 14874 [facility] 0 [place] [facility] [employer] INC VIRUS HUMAN AMPLIFIED PROBE TQ CYTP C/V 80819 [facility] AUTO THIN 0 [place] [facility] [place] INC LYR PREPJ SCR MNL RESCR PHYS RADEX 63126 [facility] SPINE 0 MED CTR MED CTR LUMBOSACR AL 2/3 VIEWS RADEX 78630 [facility] ANKLE 0 MED CTR MED CTR COMPLETE MINIMUM 3 VIEWS I&D 82878 THANIA LAZARUS, HEMATOMA 0 RIVER HBP HEMANTH J SEROMA/FL LLC UID COLLECTIO N INCISION 13888 [facility] SPADY, THROMBOSE 0 RIVER HBP HERIBERTO D D LLC HEMORRHOI D EXTERNAL RADEX 65385 BREATHIT STANTON, A HAND 0 [facility], [facility]–1983 MINIMUM 3 IMAGING VIEWS CENTER SERVICES 26800 DAVIDSON CEDEÑO, PROVIDED 0 SAVI HOU OFFICE OTH/THN REG SCHED HOURS GENERAL 86903 [facility] 0 [facility] INC PANEL LIPID 72294 [facility] PANEL 0 [facility] INC COLLECTIO 06692 [facility] N VENOUS 9 MED CTR MED CTR BLOOD VENIPUNCT URE BLOOD 38138 [facility] COUNT 9 MED CTR MED CTR COMPLETE AUTO&AUTO DIFRNTL WBC IAADIADOO 87839 [facility] 9 MED CTR MED CTR STREPTOCO CCUS GROUP A SUSCEPTIB 94158 [facility] LTY STDY 9 MED CTR MED CTR ANTIMICRB IAL MICRO/AGA R DILUTJ INCISION 53656 [place] JACE, & 9 RIVER MED MALU W DRAINAGE CTR ABSCESS SIMPLE/SI NGLE CUL BACT 08176 [facility] XCPT 9 MED CTR MED CTR URINE BLOOD/STO OL AEROBIC ISOL CUL BACT 29444 [facility] AEROBIC 9 MED CTR MED CTR ADDL METHS DEFINITIV E EA ISOL MRI 92998 GRAM STANTON, A SPINAL 9 RESOURCES R CANAL LUMBAR W/O CONTRAST MATERIAL MRI BRAIN 71824 GRAM STANTON, A BRAIN 9 RESOURCES R STEM W/O CONTRAST MATERIAL BLOOD 61267 LAB [facility] COUNT 9 AMERIC AMERIC COMPLETE HOLDING HOLDING AUTO&AUTO DIFRNTL WBC COLLECTIO 78321 Lawrence CORCORAN VENOUS 9 JONAN SUBIR BLOOD [facility] VENIPUNCT [facility] URE INC THERAPEUT 10079 MARIAN CORCORAN 9 JONAN SUBIR PROPHYLAC [facility] TIC/DX CLINIC INJECTION INC SUBQ/IM MRI BRAIN 91414 PHYSICIAN STRATTON BRAIN 9 S MATHIEU D STEM W/O SERVICES CONTRAST PSC MATERIAL MRI 58099 PHYSICIAN [place] SPINAL 9 S MATHIEU D CANAL SERVICES LUMBAR PSC W/O CONTRAST MATERIAL MRI 00563 PHYSICIAN [place] SPINAL 9 S MATHIEU D CANAL SERVICES CERVICAL PSC W/O CONTRAST MATRL THER 63895 MALU Rachid QURESHI, PROPH/DX 8 HENRRY Sommers NJX [facility] SUBQ/IM CLINIC INC CYTP 53000 [facility] [place], CERV/VAG 8 [place] INC MAUREEN Kamar AUTO THIN LAYER PREP MNL SCREEN RADIOLOGI 49212 [facility] NOAHMICAELA C EXAM 8 RIVER MED OMAR K CHEST 2 CTR VIEWS FRONTAL&L ATERAL DETERMINA 11039 [facility] ADELINA TION 8 EYE JELLY P REFRACTIV INSTITUTE E STATE OPHTH 52151 [facility] ADELINA MEDICAL 8 EYE JELLY P XM&EVAL INSTITUTE COMPRE NEW PT 1/> VST RADEX 74483 LETITIA, LETITIA, HAND 2 8 EMILI E EMILI E VIEWS GLUC BLD 95165 LETITIA, LETITIA, GLUC MNTR 8 EMILI E EMILI E DEV CLEARED FDA SPEC HOME USE Encounters Encounter Start End Date Code Location Performer Type Date OFFICE 69447 [facility] M[facility] OUTPATIEN 7 7 PHYSICIAN T VISIT S GROUP 10 MINUTES [facility]OSP[facility] - 7 7 [facility] OUTPATIEN INC T OFFICE 93391 [facility] OUTPATIEN 7 7 PHYSICIAN T NEW 30 S GROUP MINUTES HOSPITAL R[facility] - 7 7 [facility] OUTPATIEN INC T EMERGENCY 61084 JEREMY BUSH 7 7 PHYSICIAN [facility] T VISIT HIGH/URGE NT SEVERITY EMERGENCY 97460 RICH 7 7 [facility] DEPARTMEN INC T VISIT HIGH/URGE NT SEVERITY HOSPITAL RICH - 7 7 [facility] OUTPATIEN INC T EMERGENCY 64612 JEREMY BENAVIDEZ 7 7 PHYSICIAN [facility] T VISIT HIGH/URGE NT SEVERITY EMERGENCY 59514 RICH 7 7 [facility] LOW/MODER SEVERITY HOSPITAL RICH - 7 7 [facility] OUTPATIEN [facility] T EMERGENCY 47731 [facility] T VISIT HIGH/URGE NT SEVERITY HOSPITAL RICH - 7 7 [facility] OUTPATIEN [facility] H[facility]PITAL RICH - 6 6 [facility] OUTPATIEN [facility] T EMERGENCY 91961 [facility] 6 6 [facility] T VISIT LOW/MODER SEVERITY EMERGENCY 82731 JEREMY BENAVIDEZ 6 6 [facility]IC[facility] T VISIT MODERATE SEVERITY HOSPITAL RICH - 6 6 [facility] RICH - 6 6 [facility] EMERGENCY 90081 RICH 6 6 [facility] T VISIT LOW/MODER SEVERITY EMERGENCY 56709 JEREMY BUSH DEPT 6 6 PHYSICIAN U CELESTINO VISIT [facility] HIGH [facility]VERITY& THREAT [facility] HOSPITAL RICH - 6 6 [facility] EMERGENCY 85338 RICH 6 6 [facility] T VISIT LOW/MODER SEVERITY HOSPITAL RICH - 6 6 [facility] EMERGENCY 21852 JEREMY ECHEVERRIA 6 6 PHYSICIAN DEPARTMEN S, [facility] T VISIT MODERATE SEVERITY HOSPITAL RICH - 6 6 [facility] OUTPATIEN [facility] T EMERGENCY 28840 JEREMY BENAVIDEZ 6 6 PHYSICIAN [facility] S, [facility] T VISIT HIGH/URGE NT SEVERITY EMERGENCY 61839 RICH 6 6 [facility] T VISIT MODERATE SEVERITY EMERGENCY 90198 RICH 6 6 [facility] T VISIT LOW/MODER SEVERITY HOSPITAL RICH - 6 6 [facility] OUTPATIEN INC T EMERGENCY 17649 [facility] [facility] [place] [place] [facility] T VISIT HIGH/URGE NT SEVERITY HOSPITAL RICH - 5 5 [facility] T EMERGENCY 82279 [facility] [facility] [place] [place] 5 [facility] T VISIT MODERATE SEVERITY EMERGENCY 92610 RICH 5 5 [facility]PART[facility] T VISIT LOW/MODER SEVERITY EMERGENCY 05124 JEREMY BENAVIDEZ 5 5 PHYSICIAN AGUSTO [facility] SE[facility] RICH - 5 5 [facility] OUTPATIEN INC T HOSPITAL RICH - 5 5 [facility] OUTPATI[facility] INC T EMERGENCY 36551 JEREMY LEONG 5 5 PHYSICIAN SEHLIA [facility]/URGE NT SEVERITY OFFICE 31367 [facility] PRAMOD OUTPATIEN 5 5 PHYSICIAN AGUSTO T VISIT S GROUP 15 MINUTES EMERGENCY 96257 ANSON GRIGGS 5 5 SENIOR ACCOUNT EXECUTIVE SENIOR ACCOUNT EXECUTIVE DEPARTMEN T VISIT MODERATE SEVERITY OFFICE 71120 [facility] PRAMOD OUTPATIEN 5 5 PHYSICIAN AGUSTO T VISIT S GROUP 15 MINUTES OFFICE 99920 [facility] PRAMOD OUTPATIEN 5 5 PHYSICIAN AGUSTO T VISIT S GROUP 15 MINUTES EMERGENCY 68090 SOTINGEAN SOTINGEAN 5 5 U CELESTINO U CELESTINO DEPARTMEN T VISIT HIGH/URGE NT SEVERITY OFFICE 09712 SCIFRES SCIFRES OUTPATIEN 5 5 ANG ANG T VISIT 10 MINUTES OFFICE 59227 SCHILLING ELFEGO SCHILLING ELFEGO OUTPATIEN 5 5 T VISIT 10 MINUTES OFFICE 30032 [facility] PRAMOD OUTPATIEN 5 5 PHYSICIAN AGUSTO T VISIT S GROUP 15 MINUTES OFFICE 82272 [facility] PRAMOD OUTPATIEN 5 5 PHYSICIAN AGUSTO T VISIT S GROUP 15 MINUTES OFFICE 45037 [facility] PRAMOD OUTPATIEN 5 5 PHYSICIAN AGUSTO T VISIT S GROUP 15 MINUTES OFFICE 26059 [facility] PRAMOD OUTPATIEN 5 5 PHYSICIAN AGUSTO T VISIT S GROUP 15 MINUTES OFFICE 68190 [facility] PRAMOD OUTPATIEN 5 5 PHYSICIAN AGUSTO T VISIT S GROUP 10 MINUTES HOSPITAL RICH - 5 5 [facility] OUTPATIEN INC T OFFICE 04315 [facility] PRAMOD OUTPATIEN 4 4 PHYSICIAN AGUSTO T VISIT S GROUP 10 MINUTES OFFICE 96437 [facility] PRAMOD OUTPATIEN 4 4 PHYSICIAN AGUSTO T VISIT S GROUP 10 MINUTES OFFICE 38140 [facility] PRAMOD OUTPATIEN 4 4 PHYSICIAN AGUSTO T VISIT S GROUP 10 MINUTES OFFICE 59196 [facility] PRAMOD OUTPATIEN 4 4 PHYSICIAN AGUSTO T VISIT S GROUP 15 MINUTES EMERGENCY 23348 PRAMOD PRAMOD 4 4 AGUSTO AGUSTO DEPARTMEN T VISIT MODERATE SEVERITY HOSPITAL RICH - 4 4 [facility] OUTPATIEN INC T OFFICE 06383 [facility] OUTPATIEN 4 4 PHYSICIAN T VISIT S GROUP 15 MINUTES OFFICE 06921 [facility] PRAMOD OUTPATIEN 3 3 PHYSICIAN AGUSTO T VISIT S GROUP 10 MINUTES EMERGENCY 45900 THANIA DEL RIO, 3 3 RIVER HBP III [facility] T VISIT MODERATE SEVERITY HOSPITAL [place] - 3 3 MED CTR, OUTPATIEN ATTN: T DENE OFFICE 45546 [facility] PETTEY OUTPATIEN 3 3 PHYSICIAN JAM T NEW 30 S GROUP MINUTES EMERGENCY 96856 AVIS KAUR 3 3 EMERGENCY DEPARTMEN SERVICES T VISIT HIGH/URGE NT SEVERITY HOSPITAL RICH Sanches 3 3 [facility] OUTPATIEN INC T EMERGENCY 48780 RICH 3 3 [facility] DEPARTMEN INC T VISIT LOW/MODER SEVERITY EMERGENCY 07957 [facility] 3 3 MED CTR, DEPARTMEN ATTN: T VISIT DENE MODERATE SEVERITY EMERGENCY 80792 THANIA MCCORMICK 3 3 RIVER [facility] AAR [facility]PART[facility] LLC T VISIT LOW/MODER SEVERITY HOSPITAL [facility] - 3 3 MED CTR, OUTPATIEN ATTN: T DENE HOSPITAL RICH - 3 3 [facility] OUTPATIEN INC T EMERGENCY 38550 AVIS BENAVIDEZ 3 3 EMERGENCY [facility] DEPARTMEN SERVICES T VISIT MODERATE SEVERITY HOSPITAL [facility] - 3 3 MED CTR, OUTPATIEN ATTN: T DENE EMERGENCY 39430 [facility] 3 3 MED CTR, DEPARTMEN ATTN: T VISIT DENE MODERATE SEVERITY HOSPITAL [facility] - 3 3 MED CTR, OUTPATIEN ATTN: T DENE EMERGENCY 90267 [facility] 3 3 MED CTR, DEPARTMEN ATTN: T VISIT DENE MODERATE SEVERITY HOSPITAL RICH - 2 2 [facility] OUTPATIEN INC T EMERGENCY 75510 AVIS BENAVIDEZ 2 2 EMERGENCY [facility] DEPARTMEN SERVICES T VISIT HIGH/URGE NT SEVERITY EMERGENCY 32398 MS JACOBO 2 2 MED CTR, DEPARTMEN ATTN: T VISIT DENE LOW/MODER SEVERITY HOSPITAL [facility] - 2 2 MED CTR, OUTPATIEN ATTN: T DENE EMERGENCY 04610 THANIA MCCORMICK 2 2 RIVER [facility] AAR [facility]PART[facility] T VISIT MODERATE SEVERITY EMERGENCY 41669 [facility] DEPT 2 2 SERGIO AGUSTO VISIT MED CTR HIGH SEVERITY& THREAT FUNCJ EMERGENCY 27467 RICH 2 2 [facility] DEPARTMEN INC T VISIT LOW/MODER SEVERITY HOSPITAL RICH - 2 2 [facility] OUTPATIEN INC T EMERGENCY 56547 AVIS LEORA QUIÑONES 2 2 [facility] T VISIT HIGH/URGE NT SEVERITY EMERGENCY 32213 DANIEL 2 2 [facility] T VISIT CENTE LIMITED/M [facility]OR PROB H[facility]PITAL DANIEL - 2 2 REGIONAL OUTPATIEN MEDICAL T CENTE OFFICE 17476 ALDA ARAUZ OUTPATIEN 2 2 DAVONTE VU TREMAINE T NEW 30 MD PLLC MINUTES EMERGENCY 81314 [place] 2 2 MED CTR, [facility] ATTN: T VISIT DENE MODERATE SEVERITY HOSPITAL [place] 2 2 [facility], OUTPATIEN ATTN: T DENE OFFICE 56613 LUCRECIA LUCRECIA OUTPATIEN 2 2 KYRIE KYRIE T NEW 30 MINUTES HOSPITAL [place] 2 2 [facility], OUTPATIEN ATTN: T DENE EMERGENCY 01368 [place] 2 2 MED CTR, [facility] ATTN: T VISIT DENE MODERATE SEVERITY EMERGENCY 21049 [place] 2 2 [facility] CTR, DEPARTMEN ATTN: T VISIT DENE LIMITED/M INOR PROB [facility]PITAL [place] - 2 2 [facility] CTR, OUTPATIEN ATTN: T DENE HOSPITAL [place] 2 2 [facility] CTR, OUTPATIEN ATTN: T DENE EMERGENCY 35668 [place] 2 2 [facility] CTR, DEPARTMEN ATTN: T VISIT DENE MODERATE SEVERITY HOSPITAL [place] 2 2 [facility] CTR, OUTPATIEN ATTN: T DENE EMERGENCY 80066 REGINALis LUZ 2 2 RIVER HBP [facility] T VISIT LOW/MODER SEVERITY EMERGENCY 51651 [place] 2 2 MED CTR, DEPARTMEN ATTN: T VISIT DENE HIGH/URGE NT SEVERITY HOSPITAL [place] 2 2 [facility] CTR, OUTPATIEN ATTN: T DENE EMERGENCY 40714 [place] 2 2 [facility]: T VISIT DENE MODERATE SEVERITY EMERGENCY 25302 [place] 1 1 MED CTR, DEPARTMEN ATTN: T VISIT DENE LOW/MODER SEVERITY HOSPITAL [place] - 1 1 MED CTR, OUTPATIEN ATTN: T DENE EMERGENCY 96855 [facility] 1 1 RIVER HB [facility] T VISIT MODERATE SEVERITY EMERGENCY 29488 [place] 1 1 MED CTR, [facility] ATTN: T VISIT DENE MODERATE SEVERITY HOSPITAL [place] 1 1 MED CTR, OUTPATIEN ATTN: T DENE EMERGENCY 23088 NATTY LUZ 1 1 ELIEL JULIAN [facility] T VISIT LOW/MODER SEVERITY HOSPITAL [place] - 1 1 MED CTR, OUTPATIEN ATTN: T DENE EMERGENCY 89287 [place] 1 1 MED CTR, [facility] ATTN: T VISIT DENE MODERATE SEVERITY OFFICE 75918 [facility]ART & OUTPATIEN 1 1 VASCULAR T VISIT SPECIALIS 25 TS MINUTES OFFICE 16871 HEART & OUTPATIEN 1 1 VASCULAR T NEW 45 SPECIALIS MINUTES TS EMERGENCY 39230 [place] 1 1 MED CTR, [facility] ATTN: T VISIT DENE MODERATE SEVERITY EMERGENCY 29185 NATTY LUZ 1 1 ELIEL JULIAN [facility] T VISIT LOW/MODER SEVERITY HOSPITAL [place] - 1 1 MED CTR, OUTPATIEN ATTN: T DENE OFFICE 96387 ALEC TRISTAN PINEDA OUTPATIEN 1 1 CLINIC T VISIT 25 MINUTES HOSPITAL [place] 1 1 [facility] CTR, OUTPATIEN ATTN: T DENE EMERGENCY 94853 [facility] TIT[facility] 1 1 G G DEPARTMEN T VISIT MODERATE SEVERITY OFFICE 89007 ALEC TRISTAN PINEDA OUTPATIEN 1 1 CLINIC T VISIT 15 MINUTES EMERGENCY 76918 [place] 1 1 MED CTR, DEPARTMEN ATTN: T VISIT DENE MODERATE SEVERITY EMERGENCY 61606 [facility] 1 1 RIVER HBP AAR [facility] T VISIT HIGH/URGE NT SEVERITY HOSPITAL [place] 1 1 MED CTR, OUTPATIEN ATTN: T DENE OFFICE 30899 ALEC TRISTAN PINEDA OUTPATIEN 1 1 CLINIC T VISIT 25 MINUTES OFFICE 40904 ALEC TRISTAN PINEDA OUTPATIEN 1 1 CLINIC T VISIT 25 MINUTES EMERGENCY 99800 [facility] 1 1 RIVER HBP ELIEL [facility] T VISIT HIGH/URGE NT SEVERITY HOSPITAL [facility] - 1 1 MED CTR, OUTPATIEN ATTN: T DENE EMERGENCY 87185 [facility] 1 1 RIVER HBP [facility] T VISIT MODERATE SEVERITY OFFICE 61535 [facility] 1 1 FAMILY GOMEZ T VISIT CLINIC 25 MINUTES HOSPITAL [facility] - 1 1 MED CTR, OUTPATIEN ATTN: T DENE EMERGENCY 98962 [place] 1 1 MED CTR, DEPARTMEN ATTN: T VISIT DENE LOW/MODER SEVERITY HOSPITAL [place] - 1 1 MED CTR, OUTPATIEN ATTN: T DENE HOSPITAL [facility] - 1 1 MED CTR, OUTPATIEN ATTN: T DENE EMERGENCY 73233 THANIA JACE 1 1 RIVER HBP [facility] T VISIT MODERATE SEVERITY EMERGENCY 06004 [place] 1 1 [facility] CTR, DEPARTMEN ATTN: T VISIT DENE MODERATE SEVERITY HOSPITAL [place] 1 1 [facility] CTR, OUTPATIEN ATTN: T DENE EMERGENCY 02311 [facility] 1 1 RIVER HBP G [facility] T VISIT LOW/MODER SEVERITY EMERGENCY 50508 [place] 1 1 MED CTR, DEPARTMEN ATTN: T VISIT DENE MODERATE SEVERITY EMERGENCY 12962 [facility] GUILLERMO JOSE ANGEL 1 1 RIVER HBP [facility] T VISIT LOW/MODER SEVERITY HOSPITAL [place] - 1 1 MED CTR, OUTPATIEN ATTN: T DENE OFFICE 31782 CHAVIES MURAD PINEDA OUTPATIEN 1 1 CLINIC T VISIT 15 MINUTES OFFICE 73281 CHAVIES MURAD ASM OUTPATIEN 1 1 CLINIC T VISIT 15 MINUTES HOSPITAL [facility] 1 1 AN OUTPATIEN [facility] T MEDICAL OFFICE 22724 HAZARD JOSE L OUTPATIEN 1 1 FAMILY GABY T NEW 60 HEALTH MINUTES SRV AR OFFICE 68861 CHAVIES MURAD PINEDA OUTPATIEN 1 1 CLINIC T VISIT 15 MINUTES EMERGENCY 63297 [facility] 1 1 RIVER HBP G [facility] T VISIT MODERATE SEVERITY HOSP[facility] [place] 1 1 MED CTR, OUTPATIEN ATTN: T DENE OFFICE 63958 CHAVIES MURAD PINEDA OUTPATIEN 1 1 CLINIC T VISIT 15 MINUTES OFFICE 42406 CHAVIES MURAD PINEDA OUTPATIEN 0 0 CLINIC T VISIT 15 MINUTES OFFICE 24304 ALEC TRISTAN PINEDA OUTPATIEN 0 0 CLINIC T VISIT 15 MINUTES OFFICE 46261 ALEC TRISTAN PINEDA OUTPATIEN 0 0 CLINIC T VISIT 25 MINUTES OFFICE 75816 ALEC TRISTAN PINEDA OUTPATIEN 0 0 CLINIC T VISIT 15 MINUTES OFFICE 17287 ALEC TRISTAN PINEDA OUTPATIEN 0 0 CLINIC T VISIT 25 MINUTES HOSPITAL [place] 0 0 MED CTR OUTPATIEN T EMERGENCY 03672 THANIA MCCORMICK 0 0 RIVER HBP [facility] T VISIT LOW/MODER SEVERITY EMERGENCY 45965 [place] 0 0 MED CTR DEPARTMEN T VISIT MODERATE SEVERITY OFFICE 22553 ALEC TRISTAN ASM OUTPATIEN 0 0 CLINIC T VISIT 15 MINUTES HOSPITAL [facility] - 0 0 AN OUTPATIEN REGIONAL T MEDICAL OFFICE 22022 ALEC TRISTAN PINEDA OUTPATIEN 0 0 CLINIC T VISIT 15 MINUTES OFFICE 03935 ALEC TRISTAN PINEDA OUTPATIEN 0 0 CLINIC T VISIT 15 MINUTES OFFICE 01492 ALEC TRISTAN PINEDA OUTPATIEN 0 0 CLINIC T VISIT 15 MINUTES PERIODIC 77444 CHING ALONSOIV 0 0 PHYSICIAN KIKI MEDEL EST KARON PATIENT 18-39 YRS HOSPITAL [place] - 0 0 MED CTR OUTPATIEN T EMERGENCY 08682 [facility] SANZ, 0 0 RIVER HBP JOSE Galvin [facility] T VISIT LOW/MODER SEVERITY HOSPITAL [place] - 0 0 MED CTR OUTPATIEN T EMERGENCY 26185 [place] 0 0 MED CTR DEPARTMEN T VISIT MODERATE SEVERITY EMERGENCY 25228 [place] 0 0 MED CTR DEPARTMEN T VISIT MODERATE SEVERITY HOSPITAL [place] 0 0 MED CTR OUTPATIEN T EMERGENCY 83565 THANIA QIU, 0 0 RIVER HBP HEMANTH Sommers [facility] T VISIT MODERATE SEVERITY OFFICE 80673 [facility] C[facility] OUTPATIEN 0 0 NEUMANNS PAB T VISIT EXTENDED 15 H MINUTES OFFICE 07297 REJI ADRYAN, OUTPATIEN 0 0 PHYSICIAN RANDEE MACIEL 30 KARON MINUTES EMERGENCY 96401 THANIA QIU, 0 0 RIVER HBP HEMANTH Sommers [facility] T VISIT LOW/MODER SEVERITY EMERGENCY 11468 [place] 0 0 MED CTR DEPARTMEN T VISIT MODERATE SEVERITY EMERGENCY 97810 THANIA NOVOAMADELINE, 0 0 RIVER HBP HERIBERTO Galvin [facility] T VISIT LOW/MODER SEVERITY HOSPITAL [place] - 0 0 MED CTR OUTPATIEN T OFFICE 04067 [facility] OUTPATIEN 0 0 NEUMANNS PAB T VISIT EXTENDED 15 H MINUTES OFFICE 28133 REJI CINTHIA QURESHIEN 9 9 PHYSICIAN Donal Chiu VISIT KARON 10 MINUTES HOSPITAL [place] - 9 9 MED CTR OUTPATIEN T OFFICE 95241 ALCIDES MCGRATH OUTPATIEN 9 9 RENA Olea T NEW 45 MINUTES EMERGENCY 94905 THANIA QIU, 9 9 RIVER MED HEMANTH Sommers [facility] T VISIT HIGH/URGE NT SEVERITY HOSPITAL [place] - 9 9 MED CTR OUTPATIEN T EMERGENCY 25817 THANIA MCCORMICK, 9 9 RIVER MED MALU Olguin [facility]PART[facility] CTR T VISIT MODERATE SEVERITY HOSPITAL [place] - 9 9 MED CTR OUTPATIEN T EMERGENCY 05534 THANIA MCCORMICK, 9 9 RIVER MED MALU Olguin DEPARTMEN CTR T VISIT MODERATE SEVERITY OFFICE 52002 DAVIDSON CEDEÑO OUTPATIEN 9 9 SAVI HOU T VISIT 15 MINUTES EMERGENCY 73648 THANIA QIU, 9 9 [facility] HEMANTH Sommers [facility] CTR T VISIT MODERATE SEVERITY OFFICE 15627 SARAH CORCORAN 9 9 HENRRY MEYER T VISIT [facility] 15 CLINIC MINUTES INC OFFICE 04533 SARAH CLIFFORD 8 8 HENRRY ELISA J T VISIT [facility] 10 CLINIC MINUTES [facility] EMERGENCY 96940 THANIA QIU, 8 8 [facility] HEMANTH Sommers [facility] CTR T VISIT HIGH/URGE NT SEVERITY PERIODIC 82963 BROOKE ALONSO 8 8 PHYSICIAN KIKI MEDEL EST KARON PATIENT 18-39 YRS OFFICE 75653 LETITIA DONG OUTPATIEN 8 8 EMILI Chiu NEW 60 MINUTES
--- OUTSIDE RECORDS SUMMARY | 2017-01-06 13:29 | External Medical Summary Rpt | CCD ---
Demographics Preferred Language Macedonian Marital Status Unknown Yazidi Affiliation Unknown Race Unknown Ethnic Group Unknown Author Author , MAUREEN REDDY Address Unknown Phone Immunization No patient found.
--- OUTSIDE RECORDS SUMMARY | 2017-01-06 13:29 | External Medical Summary Rpt | CCD ---
Demographics Preferred Language Korean Marital Status Unknown Jewish Affiliation Unknown Race Unknown Ethnic Group Unknown Author Author , MAUREEN REDDY Address Unknown Phone Immunization No patient found.
--- OUTSIDE RECORDS SUMMARY | 2017-01-06 13:30 | External Medical Summary Rpt ---
Author Author RANJEETDAVID Production, [employer] Production Organization [employer] Address Unknown Phone Unavailable Results Comprehensive metabolic 2000 panel in Serum or Plasma Observa Value Referen Units Interpr Notes Date tion ce etation Range Albumin/G 1.1 - 1.8 No Normal No Oct 4 lobulin informati informati 2017 8:15 [Mass on in on in AM ratio] in source source Serum or data data Plasma Albumin 3.4 - 5.0 gm/dL Normal No Oct 4 [Mass/vol informati 2017 8:15 ume] in on in AM Serum or source Plasma data Alkaline 46 - 116 U/L Normal No Oct 4 phosphata informati 2017 8:15 se on in AM [Enzymati source c data activity/ volume] in Serum or Plasma Bilirubin 0.2 - 1.0 mg/dL Normal No Oct 4 .total informati 2017 8:15 [Mass/vol on in AM ume] in source Serum or data Plasma Urea 7 - 18 mg/dL Normal No Oct 4 nitrogen informati 2017 8:15 [Mass/vol on in AM ume] in source Serum or data Plasma Calcium 8.5 - mg/dL Normal No Oct 4 [Mass/vol 10.1 informati 2017 8:15 ume] in on in AM Serum or source Plasma data Chloride 98 - 107 mmoL/L Normal No Oct 4 [Moles/vo informati 2017 8:15 lume] in on in AM Serum or source Plasma data Carbon 21.0 - mmoL/L Normal No Oct 4 dioxide, 32.0 informati 2017 8:15 total on in AM [Moles/vo source lume] in data Serum or Plasma Creatinin 0.55 - mg/dL Normal No Oct 4 e 1.02 informati 2017 8:15 [Mass/vol on in AM ume] in source Serum or data Plasma Creatinin 50 - 200 ML/MIN Normal No Oct 4 e renal informati 2017 8:15 clearance on in AM source predicted data by Cockcroft -Gault formula Estimated 59- ML/MIN No REFERENCE Oct 4 informati RANGE: 2017 8:15 glomerula on in >60 AM r source ML/MIN/1. filtratio data 73 SQUARE n rate METERSIf (GF this patient is -A merican, then multiply theresult by 1.210. Globulin 1.3 - 3.2 gm/dL High No Dec 29 [Mass/vol informati 2016 8:15 ume] in on in AM Serum source data Glucose 74 - 106 mg/dL Normal No Dec 29 [Mass/vol informati 2016 8:15 ume] in on in AM Serum or source Plasma data Potassium 3.5 - 5.1 mmoL/L Normal No Dec 29 inform2016 8:15 [Moles/vo on in AM lume] in source Serum or data Plasma Sodium 136 - 145 mmoL/L Normal No Dec 29 [Moles/vo informati 2016 8:15 lume] in on in AM Serum or source Plasma data Aspartate 15 - 37 U/L Low No Dec 29 inform2016 8:15 aminotran on in AM sferase source [Enzymati data c activity/ volume] in Serum or Plasma Alanine 12 - 78 U/L Normal No Dec 29 aminotran inform2016 8:15 sferase on in AM [Enzymati source c data activity/ volume] in Serum or Plasma Protein 6.4 - 8.2 gm/dL Normal No Dec 29 [Mass/vol informati 2016 8:15 ume] in on in AM Serum or source Plasma data Lipase [Enzymatic activity/volume] in Serum or Plasma Observa Value Referen Units Interpr Notes Date tion ce etation Range Lipase 73 - 393 U/L Normal No Dec 29 [Enzymati informati 2016 8:15 c on in AM activity/ source volume] data in Serum or Plasma CBC W Auto Differential panel in Blood Observa Value Referen Units Interpr Notes Date tion ce etation Range Basophils 0 - 0.2 K/MM3 Normal No Dec 29 inform2016 8:15 [#/volume on in AM ] in source Blood by data Automated count Basophils 0.1 - 2.0 % Normal No Dec 29 /100 informati 2016 8:15 leukocyte on in AM s in source Blood by data Automated count Eosinophi 0.0 - 0.4 K/mm3 Normal No Dec 29 ls informati 2016 8:15 [#/volume on in AM ] in source Blood by data Automated count Eosinophi 0.1 - % Normal No Dec 29 ls/100 12.0 informati 2016 8:15 leukocyte on in AM s in source Blood by data Automated count Granulocy 1.8 - 7.8 K/mm3 Normal No Dec 29 roland informati 2016 8:15 [#/volume on in AM ] in source Blood by data Automated count Granulocy 37.0 - % Normal No Dec 29 roland/100 80.0 informati 2016 8:15 leukocyte on in AM s in source Blood by data Automated count Hematocri 37.0 - % Normal No Dec 29 t [Volume 47.0 informati 2016 8:15 on in AM Fraction] source of Blood data Hemoglobi 12.2 - g/dL Normal No Dec 29 n 16.2 informati 2016 8:15 [Mass/vol on in AM ume] in source Blood data Lymphocyt 0.7 - 4.5 K/mm3 Normal No Dec 29 es informati 2016 8:15 [#/volume on in AM ] in source Unspecifi data ed specimen by Automated count Lymphocyt 10 - 50.0 % Normal No Dec 29 es informati 2016 8:15 [#/volume on in AM ] in source Unspecifi data ed specimen by Automated count Erythrocy 27 - 31.2 pg Normal No Dec 29 te mean informati 2016 8:15 corpuscul on in AM ar source hemoglobi data n [Entitic mass] Erythrocy 31.8 - g/dl Normal No Dec 29 te mean 35.4 informati 2016 8:15 corpuscul on in AM ar source hemoglobi data n concentra tion [Mass/vol ume] by Automated count Erythrocy 82.2 - fl Normal No Dec 29 te mean 97.8 informati 2016 8:15 corpuscul on in AM ar volume source [Entitic data volume] by Automated count Monocytes 0.1 - 1.0 K/mm3 Normal No Dec 29 informati 2016 8:15 [#/volume on in AM ] in source Blood by data Automated count Monocytes 1.7 - 9.3 % Normal No Dec 29 informati 2016 8:15 leukocyte on in AM s in source Blood by data Automated count Platelets 142 - 424 K/mm3 Normal No Dec 29 informati 2016 8:15 [#/volume on in AM ] in source Blood data Erythrocy 4.2 - 5.4 M/mm3 Normal No Dec 29 roland informati 2016 8:15 [#/volume on in AM ] in source Amniotic data fluid Erythrocy 11.5 - % Normal No Dec 29 te 17.5 informati 2016 8:15 distribut on in AM ion width source [Entitic data volume] by Automated count Leukocyte 4.8 - K/MM3 Normal No Dec 4 s 10.8 informati 2016 8:15 [#/volume on in AM ] in source Blood data XR CHEST PA AND LATERAL Observa Value Referen Units Interpr Notes Date ti ce etation Range TEXT XR No No No No Nov 16 DIAGNOS CHEST informa informa informa informa 2011 IS PA AND tion in tion in tion in tion in 3:25 AM BATTERY LATERAL source source source source Aug data data data data 2011 03:25:3 1 ARMANDO RY: -COUGH. Compare : noneEvi dence of old granulo matous disease notedHe art size normal. Lungs free of infiltr ate. No pneumot horax.I mpressi on: No acute finding s. EK EKG 12 LEAD Observa Value Referen Units Interpr Notes Date ti ce etation Range Sinus No No No No Nov 16 rhythmN informa informa informa informa 2011 ormal tion in tion in tion in tion in 1:49 AM ECG source source source source data data data data
--- OUTSIDE RECORDS SUMMARY | 2017-01-06 13:30 | External Medical Summary Rpt ---
Author Author RANEJETDAVID Production, [employer]EN Production Organization [employer] Address [...]
== END 2016-12-29 11:49 | disposition home or self-care (01) ==
LOC: ER 07:56
PROVIDERS: Emergency Medicine
DX: N30.00 Acute cystitis without hematuria (principal); R10.31 Right lower quadrant pain; F17.210 Nicotine dependence, cigarettes, uncomplicated
CPT/HCPCS: J2405; Q9967